=== PATIENT | male | born 1945 | race Caucasian/White ===

== ENCOUNTER → 2017-09-03 10:14 | Outpatient (CLI) | payer MEDICARE, SELFPAY ==
[2017-09-03 11:29] LABS: AST(SGOT) 9 U/L (15-37); Alanine Aminotransfer ALT/SGPT 25 U/L (16-61); Albumin, Serum 3.6 g/dL (3.2-5.0); Alkaline Phosphatase 68 U/L (45-117); Bilirubin, Direct 0.08 mg/dL (0.00-0.30); Cholesterol 155 mg/dL (200); Globulin 3.6 g/dL (2.2-4.2); High Density Lipoprotein 37 mg/dL; Protein, Total 7.2 g/dL (6.4-8.2); Triglycerides 200 mg/dL; Very Low Density Lipoprotein 40 mg/dL (5-40)
== END ==
PROVIDERS: Family Provider Family Medicine; PCP Family Medicine; Visit Provider Nurse Practitioner Family
DX: E78.5 Hyperlipidemia, unspecified (principal); Z79.899 Other long term (current) drug therapy
CPT/HCPCS: 36415; 80061; 80076

== ENCOUNTER → 2017-10-16 10:30 | Outpatient (CLI) | payer MEDICARE, SELFPAY ==
--- NOTE | 2017-10-16 10:31 | STE_ITS ---
Reason For Study: Chest Pain; CAD Stress Results Protocol: Tk Protocol Maximum Predicted HR: 150 bpm Target HR: 128 bpm% Max imum Predicted HR: 85 % DurationHeart Rate Stage (mm:ss) (bpm) BPCom ment Baseline 54 142/84 No Chest Pain Tk Protocol Stage I 3:00 90 152/78No Chest Pain Tk Protocol Stage II 3:00 10 9 172/74No Chest Pain Tk Protocol Stage III 2:00 12 7 180/70No Chest Pain Recovery 78 148/76 No Chest Pain Stress Duration: 8:00 mm:ss Maximum Stress HR: 127 bpmM ETS: 10 Baseline Echocardiogram Findings The estimated ejection fraction is 65 %. Stress Echo Wall motion Data Resting WMIntermediate WMStress WM Resting Wall Motion Wall Motion Stress No regional wall motion No regional wall motion abnormalities noted. abnormalities noted. EKG Data The baseline ECG demonstrates normal sinus rhythm with at rate of _ beats per minute. The patient exercised according to the regular Tk protocol for a total duration of 8:00. The maximum heart rate attained was 129 beats per minute. This was 86% of maximum predicted heart rate. The patient exercised into stage 3 of the Tk protocol. During stress, there were no ST or T wave changes noted to suggest ischemia. No clinical angina was noted. Interpretation Summary The estimated ejection fraction is 65 %. Normal, adequate, treadmill echocardiogram. Negative for ischemia by EKG and echocardiographic criteria. No anginal symptoms noted. Rare PVCs noted. Appropriate blood pressure response to exercise. Average exercise capacity for age. Final LVEF is 75%. Patient tolerated procedure well. No complications. Ordering Physician: Kendrick Villanueva Referring Physician: Kendrick Villanueva MD Performed By: Tiffanie Parada, ANNACS, RVT
== END ==
PROVIDERS: Family Provider Family Medicine; PCP Family Medicine; Visit Provider Internal Medicine Cardiovascular Disease
DX: I25.10 Atherosclerotic heart disease of native coronary artery without angina pectoris (principal); E78.5 Hyperlipidemia, unspecified; I25.2 Old myocardial infarction; Z95.5 Presence of coronary angioplasty implant and graft
CPT/HCPCS: 93017; 93350

== ENCOUNTER → 2018-02-11 11:21 | Outpatient (CLI) | payer MEDICARE, SELFPAY ==
--- NOTE | 2018-02-11 11:32 | RAD_ITS ---
STUDY: XR SPINE ENTIRE THORACIC T LUMBAR (W SKULL, CERVICAL AND SACRAL SPINE IF PERFORMED) REASON FOR EXAM: Male, 72 years old. for spine manipulation, arthritis. TECHNIQUE: Radiological exam, spine, entire thoracic and lumbar, including skull, cervical and sacral spine if performed (eg, scoliosis evaluation); 2 or 3 views. COMPARISON: None. FINDINGS: There is minimal dextroscoliosis of the lumbar spine. There is an increase in the normal thoracic kyphosis. There is multilevel endplate spondylosis of the thoracic vertebrae. There is multilevel disc space narrowing of the thoracic spine. Normal lordosis of the lumbar spine. There is multilevel endplate spondylosis of the lumbar vertebrae. There is multilevel disc space narrowing of the lumbar spine. There is an aortic atherosclerosis. RAD/Scoliosis 2 or 3 views IMPRESSION: Minimal scoliosis. Multilevel degenerative changes. Electronically Signed: Christen Joseph MD at 8:59 EDT Tel , Service support ,
--- NOTE | 2018-02-11 11:32 | RAD_ITS ---
STUDY: X-RAY - CERVICAL SPINE REASON FOR EXAM: Male, 72 years old. for spine manipulation, arthritis TECHNIQUE: 3 view(s) of the cervical spine were obtained. COMPARISON: None FINDINGS: Normal cervical lordosis. There is multi-level endplate spondylosis. There is multi-level degenerative disc disease with multilevel disc space narrowing. There is minimal anterolisthesis at C4/C5 and C5/C6 and C6/C7 The soft tissue structures are unremarkable. RAD/Cerv Spine 2 or 3 Views IMPRESSION: Degenerative changes of the spine. Electronically Signed: Christen Joseph MD at 8:47 EDT Tel , Service support ,
--- NOTE | 2018-02-11 11:32 | RAD_ITS ---
STUDY: X-RAY - PELVIS REASON FOR EXAM: Male, 72 years old. Arthritis TECHNIQUE: One view of the pelvis was obtained. COMPARISON: None. FINDINGS: There is a non-specific bowel gas pattern. There are atherosclerotic vascular calcifications of the pelvic arteries. There are degenerative changes of the visualized lumbar spine. There is narrowing with cortical sclerosis and osteophyte formation of the sacroiliac joint consistent with degenerative osteoarthritic changes. Normal visualized bilateral superior and inferior pubic rami. Normal pubic symphysis. Normal ischial tuberosities. Normal visualized right femoral head. Normal right acetabulum. There is mild articular joint space narrowing of the right hip. Normal visualized left femoral head. Normal left acetabulum. There is mild to moderate articular joint space narrowing of the left hip. RAD/Pelvis 1 or 2 Views IMPRESSION: Moderate bilateral hip arthropathies. Degenerative changes of the sacroiliac and lower lumbar spine. Electronically Signed: Dulce Maria Santiago MD at 7:40 EDT , Service support ,
== END ==
PROVIDERS: Family Provider Family Medicine; PCP Preventive Medicine Occupational Medicine
DX: M99.01 Segmental and somatic dysfunction of cervical region (principal); M99.02 Segmental and somatic dysfunction of thoracic region; M99.03 Segmental and somatic dysfunction of lumbar region; M51.36 Other intervertebral disc degeneration, lumbar region; M54.2 Cervicalgia
CPT/HCPCS: 72040; 72082; 72170

== ENCOUNTER → 2019-02-19 10:37 | Outpatient (CLI) | payer MEDICARE, SELFPAY ==
[2018-10-15 10:58] VITALS: BMI 31.2
--- NOTE | 2019-02-19 10:52 | RAD_ITS ---
STUDY: X-RAY - CERVICAL SPINE REASON FOR EXAM: Male, 73 years old. Neck and back pain. TECHNIQUE: 6 view(s) of the cervical spine were obtained. COMPARISON: February 11, 2018. FINDINGS: There are degenerative changes of the anterior atlantoaxial articulation. Normal odontoid process. There is exaggeration of the cervical lordosis. There is multi-level endplate spondylosis. There is multi-level degenerative disc disease with multilevel disc space narrowing. The intervertebral neural foramina are incompletely visualized on the oblique images. There is no evidence of acute fracture or loss of vertebral axial height.. The soft tissue structures are unremarkable. RAD/Cerv Spine 4 or 5 Views IMPRESSION: Stable degenerative changes cervical spine. Electronically Signed: Dank Estrada DO at 19:40 EDT Tel [phone], Service support ,
--- NOTE | 2019-02-19 10:52 | RAD_ITS ---
STUDY: X-RAY - THORACIC SPINE REASON FOR EXAM: Male, 73 years old. Neck and back pain. TECHNIQUE: 4 view(s) of the thoracic spine were obtained. COMPARISON: Scoliosis study, February 11, 2018. FINDINGS: Normal kyphosis of the thoracic spine. There is no substantial scoliosis. There is demineralization of the thoracic spine with endplate spondylosis. There is multilevel disc space narrowing of the thoracic spine. There is no evidence of acute fracture or loss of vertebral axial height. The soft tissue structures are unremarkable. RAD/Thoracic Spine 3 Views IMPRESSION: Degenerative changes of cervical spine without acute abnormality or major interval change. Electronically Signed: Dank Estrada DO at 19:45 EDT Tel [phone], Service support ,
--- NOTE | 2019-02-19 10:53 | RAD_ITS ---
STUDY: X-RAY - LUMBAR SPINE REASON FOR EXAM: Male, 73 years old. Neck and back pain. TECHNIQUE: 5 view(s) of the lumbar spine were obtained. COMPARISON: Scoliosis study, February 11, 2018. FINDINGS: There is mild flattening of the lumbar lordosis. There is no substantial scoliosis. There is a normal alignment of the vertebrae. There is multilevel endplate spondylosis of the lumbar vertebrae. Normal disc space heights. There is no evidence of acute fracture or loss of vertebral axial height. There is no demonstrated spondylolysis of the pars interarticulares. The soft tissue structures are unremarkable. RAD/L/S Spine Min 4 Views IMPRESSION: Degenerative changes of the lumbar spine. The findings are stable when compared to the previous examination. Electronically Signed: Dank Estrada DO at 19:46 EDT Tel [phone], Service support ,
--- NOTE | 2019-02-19 10:53 | RAD_ITS ---
STUDY: X-RAY - PELVIS REASON FOR EXAM: Male, 73 years old. Neck Back pain TECHNIQUE: One view of the pelvis was obtained. COMPARISON: None. FINDINGS: The bones of the pelvis are intact and located. Soft tissues unremarkable with expected extrusion of stool and gas in the lower abdomen. There are mild degenerative changes in the hips, age-appropriate. RAD/Pelvis 1 or 2 Views IMPRESSION: Normal x-ray examination of the pelvis. Electronically Signed: Ricci Rajan, at 17:07 EDT Tel , Service support ,
== END ==
PROVIDERS: Family Provider Preventive Medicine Occupational Medicine; PCP Preventive Medicine Occupational Medicine; Referring Provider Chiropractor; Visit Provider Chiropractor
DX: M54.2 Cervicalgia (principal); M54.5 Low back pain; M25.559 Pain in unspecified hip
CPT/HCPCS: 72050; 72072; 72110; 72170

== ENCOUNTER → 2019-07-30 10:55 | Outpatient (CLI) | payer MEDICARE, SELFPAY ==
[2019-03-22 11:13] VITALS: BMI 31.1
[2019-07-30 12:17] LABS: AST(SGOT) 11 U/L (15-37); Alanine Aminotransfer ALT/SGPT 30 U/L (16-61); Albumin, Serum 3.6 g/dL (3.2-5.0); Alkaline Phosphatase 84 U/L (45-117); Bilirubin, Direct 0.14 mg/dL (0.00-0.30); Cholesterol 170 mg/dL (200); Globulin 3.8 g/dL (2.2-4.2); High Density Lipoprotein 37 mg/dL; Protein, Total 7.4 g/dL (6.4-8.2); Triglycerides 268 mg/dL; Very Low Density Lipoprotein 54 mg/dL (5-40)
== END ==
PROVIDERS: PCP Preventive Medicine Occupational Medicine; Referring Provider Physician Assistant Medical; Visit Provider Physician Assistant Medical
DX: E78.5 Hyperlipidemia, unspecified (principal); I25.10 Atherosclerotic heart disease of native coronary artery without angina pectoris; Z12.5 Encounter for screening for malignant neoplasm of prostate
CPT/HCPCS: 36415; 80061; 80076; 84153; G0103

== ENCOUNTER → 2020-06-16 12:00 | Outpatient (CLI) | payer MEDICARE, SELFPAY ==
[2019-08-05 13:03] VITALS: BMI 32.7
--- NOTE | 2020-06-16 12:06 | RAD_ITS ---
STUDY: X-RAY - THORACIC SPINE REASON FOR EXAM: Male, 74 years old. Mid back pain TECHNIQUE: 3 view(s) of the thoracic spine were obtained. COMPARISON: None. FINDINGS: Normal kyphosis of the thoracic spine. There is no substantial scoliosis. There is multilevel endplate spondylosis of the thoracic vertebrae. There is multilevel disc space narrowing of the thoracic spine. Multiple anterior bridging spurs suggesting DISH The soft tissue structures are unremarkable. RAD/Thoracic Spine 2 Views IMPRESSION: Multilevel degenerative changes, no acute findings Electronically Signed: Buster Strong MD at 17:48 EST , Service support ,
--- NOTE | 2020-06-16 12:06 | RAD_ITS ---
STUDY: X-RAY - CERVICAL SPINE REASON FOR EXAM: Male, 74 years old. Neck pain and headache TECHNIQUE: 2 view(s) of the cervical spine were obtained. COMPARISON: None FINDINGS: Normal anterior atlantoaxial articulation. Normal odontoid process. Normal cervical lordosis. There is multi-level endplate spondylosis. There is multi-level degenerative disc disease with multilevel disc space narrowing. The soft tissue structures are unremarkable. RAD/Cerv Spine 2 or 3 Views IMPRESSION: Multilevel degenerative changes, no acute findings Electronically Signed: Buster Strong MD at 17:47 EST , Service support ,
--- NOTE | 2020-06-16 12:06 | RAD_ITS ---
STUDY: X-RAY - LUMBAR SPINE REASON FOR EXAM: Male, 74 years old. Low back pain and stiffness TECHNIQUE: 2 view(s) of the lumbar spine were obtained. COMPARISON: None FINDINGS: There is straightening of the normal lumbar lordosis. There is no substantial scoliosis. There is a normal alignment of the vertebrae. There is multilevel endplate spondylosis of the lumbar vertebrae. There is multi-level degenerative disc disease with multi-level disc space narrowing. There is no demonstrated fracture. There is atherosclerotic calcification of the abdominal aorta without a demonstrated aneurysm. RAD/Lumbar Spine 2 or 3 Views IMPRESSION: Degenerative changes of the spine, as detailed above. Electronically Signed: Buster Strong MD at 17:47 EST , Service support ,
== END ==
PROVIDERS: PCP Preventive Medicine Occupational Medicine
DX: M54.2 Cervicalgia (principal); M54.9 Dorsalgia, unspecified; M99.02 Segmental and somatic dysfunction of thoracic region; M99.05 Segmental and somatic dysfunction of pelvic region; M51.36 Other intervertebral disc degeneration, lumbar region
CPT/HCPCS: 72040; 72070; 72100

== ENCOUNTER → 2021-03-21 13:03 | Outpatient (CLI) | payer MEDICARE, SELFPAY ==
--- NOTE | 2021-03-21 13:07 | ECHOD_ITS ---
Reason For Study: AORTIC VALVE INS Procedure This was a 2D Doppler, Color Flow transthoracic echocardiogram. The exam was of adequate technical quality. Exam performed in department. Left Ventricle Normal LV size. Left ventricular systolic function is normal. The estimated ejection fraction is 55 %. No evidence for diastolic dysfunction. No regional wall motion abnormalities noted. Right Ventricle Normal RV size. Normal systolic function. Atria The left atrium is mildly enlarged. Normal right atrium. No doppler evidence for ASD. Mitral Valve There is no mitral annular calcification. Normal mitral valve. Trivial mitral valve insufficiency. Tricuspid Valve Normal tricuspid valve. Trivial tricuspid valve insufficiency. Unable to estimate RV systolic pressure due to insufficient tricuspid regurgitant envelope. Aortic Valve Trisinus/trileaflet aortic valve. Normal aortic valve. Trivial aortic valve insufficiency. Pulmonic Valve The pulmonic valve is not well visualized. Trivial pulmonic valve insufficiency. Great Vessels Normal sized aortic root. Pericardium/Pleural No pericardial effusion. Epicardial fat. MMode/2D Measurements & Calculations LVIDd: 4.6 cm IVSd: 0.83 cm Ao root diam: 4.0 cm LVIDs: 2.9 cm LVPWd: 0.95 cm RVDd: 4.2 cm FS: 36.9 % LAV(MOD-bp): 70.7 ml LA A4 area: 21.8 cm2 LA dimension(2D): 4.3 cm LAV(MOD-bp) Indexed: 32.3 ml/m2 LAV(MOD-sp2): 73.4 ml LAV(MOD-sp4): 66.9 ml RA A4 area: 19.3 cm2 Doppler Measurements & Calculations MV E max homero: 44.0 cm/sec Lat Peak E' Homero: 4.6 cm/sec Med Peak E' Homero: 3.7 cm/sec MV A max homero: 71.2 cm/sec E/E' lat: 9.5 E/E' med: 12.0 MV E/A: 0.62 Ao V2 max: 120.5 cm/sec AI max homero: 379.5 cm/sec LV V1 max: 82.4 cm/sec Ao max P.8 mmHg AI max P.9 mmHg LV V1 max P.7 mmHg AI dec slope: 187.4 cm/sec2 AI P1/2t: 593.1 msec PA V2 max: 107.7 cm/sec PI end-d homero: 109.0 cm/sec ECHO/Echo Complete Interpretation Summary Left ventricular systolic function is normal. The estimated ejection fraction is 55 %. The left atrium is mildly enlarged. Trivial mitral valve insufficiency. Trivial tricuspid valve insufficiency. Trivial aortic valve insufficiency. Trivial pulmonic valve insufficiency. Epicardial fat. Unable to estimate RV systolic pressure due to insufficient tricuspid regurgita nt envelope. No evidence for diastolic dysfunction. Ordering Physician: Yair Segal Referring Physician: ZOIE CANO Performed By: Tiffanie Parada, RDCS, RVT
== END ==
PROVIDERS: PCP Preventive Medicine Occupational Medicine; Referring Provider Internal Medicine Cardiovascular Disease; Visit Provider Internal Medicine Cardiovascular Disease
DX: I25.10 Atherosclerotic heart disease of native coronary artery without angina pectoris (principal); I35.1 Nonrheumatic aortic (valve) insufficiency; E78.5 Hyperlipidemia, unspecified; Z95.5 Presence of coronary angioplasty implant and graft
CPT/HCPCS: 93306

== ENCOUNTER 2021-06-15 16:19 | Outpatient (CLI) | payer MEDICARE, SELFPAY ==
--- NOTE | 2021-06-15 16:41 | RAD_ITS ---
HISTORY: CERVICAL/THPORACIC/LUMBAR SUBLUXATION EXAMINATION/TECHNIQUE: XR Spine Lumbar 2 or 3 Views: Two-view lumbar spine.. COMPARISON: February 19, 2019 FINDINGS: VERTEBRAE: 5 [id number] lumbar type vertebra. No fracture or acute compression deformity. Thoracolumbar dextrocurvature Preservation of the normal lumbar lordosis. Facet arthropathy, severe at L3-L4 and L4-L5 with grade 1 retrolisthesis L3 on L4 and grade 1 anterolisthesis L4 on L5. DISCS: Multilevel mid to lower lumbar disc height loss with anterior vertebral bridging osteophytes INCLUDED ABDOMEN: Included bowel gas pattern is non-obstructive. Aortic and iliac atherosclerosis. RAD/Lumbar Spine 2 or 3 Views IMPRESSION: No evidence of lumbar spinal fracture or facet dislocation Severe lower lumbar facet arthropathy with degenerative grade 1 L3-L4 and L4-5 listhesis Atherosclerosis at 0415 Reported and signed by: Marcelino Rojo MD Electronically Signed: Marcelino Rojo MD at 4:13 EST Tel , Service support ,
--- NOTE | 2021-06-15 16:50 | RAD_ITS ---
HISTORY: CERVICAL/THORACIC/LUMBAR SUBLUXATION EXAMINATION/TECHNIQUE: XR Spine Cervical 2 or 3 Views: 3 view cervical spine COMPARISON: June 16, 2020 FINDINGS: VERTEBRAE: Preserved vertebral body height. No fracture. Head tilts rightward. Mild degenerative grade 1 anterolisthesis C4 on C5, C5 and C6, C6 and C7 Preservation of the normal cervical lordosis. Diffuse cervical facet arthropathy, right greater than left with cervical levocurvature. No facet dislocation. DISCS: Mild disc height loss at C6-C7. NECK SOFT TISSUES: No prevertebral soft tissue widening. Aortic atherosclerosis. Right greater than left mid carotid at the sclerosis. LUNG APICES: Clear. RAD/Cerv Spine 2 or 3 Views IMPRESSION: No evidence of acute fracture Spondylosis with right greater than left facet arthropathy and mild multilevel degenerative grade 1 listhesis. at 0409 Reported and signed by: Marcelino Rojo MD Electronically Signed: Marcelino Rojo MD at 4:08 EST Tel , Service support ,
== END 2021-06-15 23:59 | disposition short-term general hospital (02) ==
PROVIDERS: PCP Preventive Medicine Occupational Medicine; Referring Provider Chiropractor; Visit Provider Chiropractor
DX: S13.100A Subluxation of unspecified cervical vertebrae, initial encounter (principal); M46.96 Unspecified inflammatory spondylopathy, lumbar region; S23.100 Subluxation of unspecified thoracic vertebra; S33.100A Subluxation of unspecified lumbar vertebra, initial encounter; X58.XXXA Exposure to other specified factors, initial encounter; M25.78 Osteophyte, vertebrae
CPT/HCPCS: 72040; 72100

== ENCOUNTER → 2022-03-12 | Outpatient (CLI) | payer MEDICARE, SELFPAY ==
[2022-03-12 16:18] LABS: Absolute Lymphocyte Count 1.07 X10^3/uL (0.83-4.51); Absolute Neutrophil Count 4.1 X10^3/uL (2.0-7.7); Basophil# 0.05 X10^3/uL; Basophil% 0.9 % (0-1); Eosinophil# 0.04 X10^3/uL; Eosinophils% 0.7 % (0-5); Hematocrit 47.9 % (40-54); Hemoglobin 15.8 g/dL (13.0-16.5); Lymphocyte # 1.07 X10^3/ul (0.83-4.51); Lymphocyte % 18.2 % (19-41); Mean Corpuscular Volume 94.1 fL (80-94); Mean Platelet Vol. 10.4 fl (6.2-12.0); Monocyte# 0.61 X10^3/uL; Monocyte% 10.4 % (0-10); NRBC Flagged by Analyzer 0 % (0-5); Neutrophil # 4.07 X10^3/uL (2.7-7.7); Neutrophil % 69.3 % (47-70); Platelet Count 173 K/mm3 (150-450); RBC Distribution Width CV 14.5 % (11.6-14.6); RBC Distribution Width SD 50.1 fl (35.1-43.9); Red Blood Count 5.09 M/mm3 (4.6-6.2); White Blood Count 5.9 K/mm3 (4.4-11.0)
[2022-03-12 16:29] LABS: International Normalized Ratio 1.1; Partial Thromboplast Time 31.4 Seconds (24.1-36.2); Prothrombin Time (Protime)PT. 13.4 SECONDS (11.7-14.9)
[2022-03-12 16:36] LABS: Anion Gap 4 (5-15); BUN 31 mg/dL (7-18); Calcium,Total 9.8 mg/dL (8.5-10.1); Chloride 108 mmol/L (98-107); Creatinine, Serum 1.35 mg/dL (0.70-1.30); EST Glomerular Filtration Rate 55 mL/min (>60); Est Glom Filt Rate - Afr Amer 66 mL/min (>60); Glucose 104 mg/dL (74-106); Sodium Level 142 mmol/L (136-145)
[2022-03-12 19:27] LABS: AST(SGOT) 8 U/L (15-37); Alanine Aminotransfer ALT/SGPT 24 U/L (16-61); Albumin, Serum 3.7 g/dL (3.2-5.0); Alkaline Phosphatase 72 U/L (45-117); Bilirubin, Direct 0.09 mg/dL (0.00-0.30); Globulin 3.5 g/dL (2.2-4.2); Magnesium 2.2 mg/dL (1.6-2.6); Protein, Total 7.2 g/dL (6.4-8.2)
== END | disposition home or self-care (01) ==
LOC: LAB 15:42
PROVIDERS: Anesthesiology; PCP Preventive Medicine Occupational Medicine; Referring Provider Specialist; Visit Provider Specialist
DX: Z01.818 Encounter for other preprocedural examination (principal)
CPT/HCPCS: 36415; 80048; 80076; 83735; 85025; 85610; 85730; 87081

== ENCOUNTER 2022-03-20 06:58 | Observation (INO) | payer MEDICARE, SELFPAY ==
--- NOTE | 2022-03-08 17:05 | PCM.HP.BLA ---
History and Physical History and Physical [facility] Patient Name: Fransisco Schneider : 1945 From:? JAYRO VAZQUEZ PA-C? DATE OF SURGERY:? 03/20/2022 SCHEDULED PROCEDURE:? left total hip arthroplasty HISTORY OF PRESENT ILLNESS: Preoperative history and physical exam was performed on March 08, 2022.? This is a 76-year-old male who has been having ongoing pain in bilateral hips are over 10 years.? The left hip has been worse than the right.? His pain as being constant and aching.? Pain is increased with going up and down stairs, driving, sitting, walking.? He has difficulty with activities of daily living including getting dressed, housework, shopping, leisure activities such as cycling and golf.? He has tripped/stumbled secondary to the pain.? Denies previous surgery on the hip.? He has attempted rest, ice, heat, elevation with minimal relief.? He does have start up pain.? Pain is located in the left groin and lateral hip.? Pain occasionally wakes him at night.? He has tried [id number] ibuprofen, meloxicam, Excedrin, Tylenol with minimal relief.? He has had previous physical therapy in 2019 in 2020 with minimal relief.? He has been through health care / medical job titles.? Patient has undergone 2 previous left hip intra-articular injections on April 12, 2021 and October 19, 2021.? He states the last injection only gave him 1 month relief.? The pain has been progressively been getting worse.? He uses Excedrin Extra Strength for pain twice daily.? He currently denies any recent fevers, chills, recent infections.? We are obtaining surgical clearance from the truck dispatcher Dr. Segal and primary care physician Dr. León.? Patient does have previous history of heart stent and catheterization in the past.? He has had previous heart attack.? Previous brain bleeding in which she has seen a neurologist.? We are obtaining surgical clearance from the neurologist Dr. Howard Dougherty.? Patient has history of cerebral amyloid angiopathy.? He has had previous MRI on the brain which did show micro-hemorrhages secondary to hypertension and amyloid angiopathy.? He has also had previous CT scan of his head.? Patient also has previous history of cancer involving non-Hodgkin's lymphoma.? He states he gets numbness and tingling on the left side at times.? He has history gastroesophageal reflux.? After failing conservative measures and discussing all treatment options was Dr. Almas Larson, the patient does wish to proceed with a left total hip arthroplasty. REVIEW OF SYSTEMS: ROS: Const: Denies change in appetite, fever and weight change. CV: Denies chest pain, heart murmur and irregular heartbeat. Resp: Reports cough and pneumonia, but denies shortness of breath, tuberculosis and wheezing. GI: Reports constipation, diarrhea, dysphagia and heartburn, but denies nausea, rectal itching, bloody stools and vomiting. : Denies incontinence. Musculo: Reports gait disturbance, leg swelling and pain, but denies trouble walking and weakness. Skin: Reports history of shingles, but denies Raynaud's and tattoo. Neuro: Reports ambulatory dysfunction, numbness/tingling and tremor but denies dizziness. Psych: Denies anxiety, insomnia and stress. Henry/Lymph: Denies anemia, bleeding/bruising tendency and past transfusion. Reviewed and updated. PAST MEDICAL HISTORY: Advance Care Plan: Other Directive, LIVING WILL Effective Date: 03/16/2021 Other Directive, POA Effective Date: 03/16/2021 PMH: Medical Problems: Acid Reflux, Arthritis, Coronary Artery Disease (CAD), Heart Attack, Hypercholesterolemia, Stroke Cancer - (1995) NON-HODGKIN'S LYMPHOMA Covid- 19 - (03/2020) High Blood Pressure brain bleed - (07/2021) LT Side Went Numb - many times Cerebral Amyloid Angiopathy, Gastroesophageal Reflux Disease Accidents: Other - (2006) Concussion ( and 1963) Low Back Injury - (1976) Surgical Hx: Heart Stent - (2010) Carpal Tunnel Release LT - (2014) Left Hip Fluoroscopic Guided Intraarticular Injection - (04/17/2021) [facility]W @ [facility] Left Hip Fluoroscopic Guided Intraarticular Injection - (10/19/2021) SAW @ [facility] RT Groin Cancer Removal - (1995) LT Grouin Surgery - (2002) Anesthesia Complications: None Assistive Devices: Glasses Reviewed and updated. SOCIAL HISTORY: SH: Marital: .Occupation: Retired.Work Status: Retired.Hand Dominance: Right-handed. Personal Habits:? Cigarette Use: Never Smoked Cigarettes.Smokeless Tobacco: Never Used Smokeless Tobacco.E-Cigarette Use: Never used.Alcohol: Denies use.Drug Use: Denies Use.Enjoy Exercising: Exercises 1-3 X/Week. Reviewed and updated. VITALS: Ht: 69.8 Wt: 219lb Wt k.338 BMI: 31.6 BP: 136/82 Pulse: 84 Resp: 12 T: 97.7 T: 36.5C Pain Level: 8 O2SatR: 97 ALLERGIES: Sulfa Lipitor - Pain In Joints Tagamet - Stomach Cramps Zetia - Numbness In Fingers And Hands Fenofibrate - Extreme Pain In Joints And Hands Hydralazine? MEDICATIONS: Lansoprazole 30 mg 1 by mouth every day, Mometasone Furoate 0.1 % apply ointment topically once daily for 7 days, Topamax 25 mg 2 daily, Aspercreme Lidocaine Max Strength 4 % apply prn, Tums 500 mg 1po qday, Excedrin Extra Strength 250-250-65 mg as needed, Orthomune? 1po qday, Relief Factor? 1po qday, Sagar Natural Pain Relieving? daily, Valsartan? 1po qday, Tylenol PM Extra Strength? 1po qday prn PRE-OP EXAM:? General appearance:NORMAL? ? ? Other: Eyes: Conjunctivae and lids: NORMAL? Pupils: ERR Ears, Nose, Mouth, and Throat: NORMAL? Other: Inspection of lips, teeth and gums: NORMAL? ?Other: Neck: Examination of neck: no masses noted. Respiratory: Assessment of respiratory effort: NORMAL? ?Other: ?Auscultation of lungs: clear to auscultation no wheezes, rhonchi or rales. Cardiovascular:? Auscultation of heart: regular rate and rhythm, no murmurs, gallops or rubs. PHYSICAL EXAMINATION: Patient does walk with an antalgic gait.? Patient has tenderness to palpation over the lateral left hip.? Range of motion: Flexion 70, internal rotation 20, external rotation 5 with increased pain.? He has 3/5 hip flexion strength.? Leg lengths appeared equal.? Negative straight leg raise bilaterally. IMAGING STUDIES: Previous x-rays of the left hip reveal joint space narrowing, subchondral sclerosis, osteophyte formation consistent with stage IV severe [id number] osteoarthritis.? There is been further progression of femoral head flattening compared to previous x-rays. IMPRESSION: 1.? Severe left hip osteoarthritis 2.? Hypertension 3.? Previous history of heart attack and stent placement 4.? Previous transient ischemia attack 5.? Cerebral amyloid angiopathy 6.? Gastroesophageal reflux disease 7.? Hypercholesterolemia 8.? Previous history of non-Hodgkin's lymphoma PLAN: Dr. Almas Larson did discuss and review with the patient all treatment options including surgical versus nonsurgical options.? Patient does wish to proceed with the above-stated procedure.? Potential risks, benefits, and complications of the procedure were discussed in detail including but not limited to , infection, nerve and blood vessel damage, persistent pain, numbness, tingling, paresthesias, blood clot, pulmonary embolism, and requirement for possible further surgery.? The patient expressed full understanding and has no further questions for the doctor.? Patient does agree to proceed with the above-stated procedure and has signed the surgery consent form. We discussed the current risks associated with COVID 19.? This does include the risk of exposure while in the hospital.? Patient was reassured local hospitals have low infection rates and are taking all necessary precautions to avoid exposure to patients.? In addition, we discussed strategies that can be used to help limit exposure including those that limit the patient's time in the hospital.? Also using strategies to limit the patient's need for continued inpatient services after being discharged from the hospital.? Patient was notified that we will need to comply with any screening or testing the hospital wishes to perform or that surgery may be delayed for any positive results. This dictation was created using voice recognition software. Phonetic and/or grammatical errors may exist. ___? I have re-examined the patient.? There are no clinical changes since date of exam. ___? See progress notes for changes. ___? Dictated on admission Date: ? ? ?Time: Signature:
--- NOTE | 2022-03-18 15:35 | CASEMGMT ---
YAKELIN LUJAN Assessment: PC to pt for initial transition planning/care coordination assessment. YAKELIN LUJAN introduced self and role at [facility], pt voices understanding and consents to assessment. Care providers, pharmacy, and demographics verified/updated. Admitting Dx: Lt Direct Anterior Total Hip. PCP: Mathew Mishra. Specialists: Pt said he has 10-15 specialists and will bring a list to his surgery. Preferred Pharmacy: [facility]. Insurance: [employer] [facility]. Prescription Benefit: yes. LNOK: Jewels Schneider, . Living Arrangements: Pt lives , Jewels, in a two story home. He is staying on the first floor and has access to needed amenities on the floor. Pt has three steps to get into the home with a railing in place. Pt reports being I in ADLs. Transportation: Pt typically drives self. However, Pt's is able to transport to medical appointments after surgery. DME/HHC/SNF: Pt typically uses a cane but has a walker for after surgery. Pt recently obtained a shower chair and raised toilet. Pt denied any HHC or SNF stays. Pt has a outpt therapy scheduled at [facility] on 03/25. Pt states no concerns with going home at time of dc. Pt states no further concerns/needs. CM to follow. Advised pt to ask CM if any further question/concerns/needs arise, voices understanding. Pt Goal: Home with outpt therapy. Plan: Home with outpt therapy.
[2022-03-20] VITALS (14 sets, daily range): BP systolic 114–157; BP diastolic 67–98; PULSE 50–95; RESP 14–18; TEMP 36.3–37; O2SAT 4–99; BMI 31.3
[2022-03-20] MEDS: Acetaminophen 500 MG Tablet 1000 MG PO ×3 (06:58→22:06)
[2022-03-20] MEDS: Magnesium 1 GM over 15 mins IV (06:59)
[2022-03-20] MEDS: Lactated Ringers 1,000 ML 999 ML IV ×2 (06:59→11:21)
--- NOTE | 2022-03-20 07:06 | PCM.OPRPT ---
Report of Operation Date of Procedure: 03/20/22 Pre-Operative Diagnosis: Left hip primary osteoarthritis Post-Operative Diagnosis: Left hip primary osteoarthritis Surgery/Procedure Performed:: Left minimally invasive direct anterior hip replacement Description of Surgical Findings:: Stable hip with equal leg lengths Surgeon: Almas Larson hand cigar making supervisor: Helena Castillo Type of Anesthesia: Spinal Anesthesiologist: Asif Hernandez Special Medications: 2 g Ancef, 2 g TXA lavage and wound for 1 minute prior to closure, 10 mg Decadron, joint cocktail (5 mg Duramorph, 30 mL of 0.5% Ropivicaine, 1000 units of epinephrine, 30 mg of Toradol) Specimen's removed: Bony cuts Estimated Blood Loss (mL): 200 Fluids Replaced: 1200 mL crystalloid Description of Procedure: Components used: 1. Insignia Edwina femoral stem size 6 high offset 2. Edwina trident 2 acetabular shell size 54 mm 3. Edwina X3 polyethylene E 4. Edwina Biolox delta 36mm, 2.5mm femoral head Brief history operative indications: 76 yo M who failed conservative measures for their hip osteoarthritis. X-rays were consistent with osteoarthritis including joint space narrowing, osteophyte formation and subchondral cysts. Total hip replacement was discussed with the patient with risks and benefits including but not limited to blood loss, DVTs, PEs, neurovascular damage, dislocation, general risks of anesthesia including loss of life. Patient demonstrated an understanding medical clearance is obtained the patient was consented for surgery. Procedure: On the date of procedure the patient's L hip was marked in the preoperative area. Patient was then taken back to the operating room where anesthesia assumed control of the C-spine and airway and administered anesthetic. Patient was transferred to the operating table and placed in the supine position. The hips were placed at the break of the bed and a sacral bump was placed. L The lower extremity was then prepped out in a sterile fashion using chlorhexidine while the surgeon scrubbed. The PA was vital in the positioning of the patient. Upon reentering the room the left lower extremity was draped in the standard orthopedic fashion and the incision was marked. A timeout was called and everyone agreed upon the side, the site, the procedure be performed, antibody given, and patient's identity. At this time incision was made through skin, subcutaneous tissue, and fat down to fascia. The fascia was then incised and the TFL was retracted laterally. A retractor was placed on the lateral border of the femoral neck. Attention was directed to the inferior portion of the approach and all crossing vessels were identified and appropriately coagulated. A retractor was then placed on the medial portion of the femoral neck. The anterior capsule was then cleared of all soft tissue and then H shaped capsulotomy was made. The retractors were then placed inside the capsule. The femoral neck was identified and a cleanup cut was made. At this time a power corkscrew was used to remove the femoral head. Attention was then turned toward the acetabulum where the soft tissues were appropriately retracted and the acetabulum was sequentially reamed to 54 mm. A 54 mm cup was then selected and impacted into place. Acetabular liner was impacted into place and locking mechanism was verified. The position of the acetabular cup was then verified under live fluoroscopy. Attention was then turned to the femur. Soft tissue releases on the medial and lateral femoral neck were appropriately done, the leg was externally rotated and lateralized. A Lopez retractor was placed medially and proximally to the greater trochanter this allowed appropriate visualization and exposure of the femoral canal. Rongeour was then used to remove excess lateral bone. A canal finder and entry broach were used to open the proximal canal. Once we verified we were down the femoral canal we subsequently broached up to a size 6 femur. The appropriate neck was placed in the previously selected head was trialed with a 2.5 mm neck. Traction was pulled and the hip was reduced with internal rotation. Once it was appropriately reduced and stability was checked. There was minimal shuck, equal leg lengths and appropriate stability with hyperextension and external rotation as well as with 90? flexion and internal rotation. Fluoroscopy was then also used to verify the position of the components and leg lengths using the contralateral side for comparison. The trial components were then dislocated the proximal femur was again exposed and the components were removed from the wound. The final components were verified and opened. The wound was copiously irrigated out with normal saline. The acetabulum was checked for any residual debris. The final components were placed and impacted. Traction and internal rotation were again used to reduce the hip. After adequate reduction the hip remained stable with appropriate leg lengths. The final components were once again checked with live fluoroscopy and were found to be satisfactory. The wound was then copiously irrigated with normal saline once more, and hemostasis was obtained. Closure was then done using #1 Vicryl runner to close the fascia. A 2-0 vicryl interuppted sutures were used to close the subcutaneous skin. A 3-0 Monocryl and Steri-Strips were used for final skin closure. A Silverlon dressing was placed. Patient was awakened by anesthesia and transferred to the [facility]. Patient was then transferred to the PACU for recovery. During the course of the procedure the physician radio host (PE) played a vital role. Their intimate knowledge of my steps in the procedure aided in safe and expedient completion of the procedure. The PE played a vital rolls in positioning particularly in obtaining the appropriate positioning of the sacral bump. The PE was also vital in the retraction of soft tissues during the exposure and especially the femoral work as this is a vital part of the procedure to prevent complications and fractures. The PE was also vital and protecting soft tissues during times of bony cuts and reaming. He also played a vital role in closure with my direct supervision. The PE was also important during reduction and dislocation of the joint and trials intraoperatively. Postoperative plan: Patient will get 24 hours postop antibiotics. Patient will get in-house physical therapy and will be weight-bear as tolerated. Patient will follow up in office in 2 weeks for a wound check and x-rays. Aspirin 81 mg twice daily. Complications No intraoperative complications Admit VTE Documentation VTE Present on Admission: No VTE Mechan Device Prophylaxis: SCD's and Thigh High THERESE Hose VTE Pharm Prophylaxis ordered?: Yes
--- NOTE | 2022-03-20 07:45 | RAD_ITS ---
STUDY: X-RAY - PELVIS AND LEFT HIP REASON FOR EXAM: Male, 76 years old. PAIN TECHNIQUE: 1 views of the pelvis and hip. COMPARISON: None. FINDINGS: Fluoroscopy of the left hip is utilized operating room during arthroplasty.. RAD/Hip 1 view with Pelvis IMPRESSION: Fluoroscopy during arthroplasty. Electronically Signed: Casey Barahona MD at 10:01 EDT ,
--- NOTE | 2022-03-20 08:45 | HIP_PTH ---
PATIENT: PATY SHEIKH II LOC: MS3 U#:[id number] AGE/SX: 76/M ROOM: MT319 RE03/20/[address]: Dr. Almas Larson MD : 1945 BED: 1 DIS: 03/21/2022 SPEC #: [id number] RECD: 03/20/22 10:40 STATUS: MONI SMITH #: [id number] ALFREDITO: 03/20/22 08:[address]: Almas Larson DEPT: SURGICAL PATHOLOGY RECD BY: Barbara Adams ENTERED: 03/20/22 11:33 SP TYPE: TOTAL HIP OTHR DR: Dr. Mathew Mishra DO Tissues: Hip, NOS Procedures: Decalcification bone/plaque Surgery Specimen Level IV HEADER OPERATION: ERAS, left total hip replacement, direct anterior approach PRE-OP DIAGNOSIS: Left hip primary osteoarthritis TISSUE SUBMITTED: Bone left hip MICROSCOPIC DIAGNOSIS Bone and tissue of left hip, total hip resection: Severe degenerative joint disease. AM:jagdish 03/26/2022 MICROSCOPIC DESCRIPTION Slides are reviewed. GROSS DESCRIPTION Received is one container labeled with the patient's name and designated bone left hip. The specimen consists of a deformed bay femoral head measuring 5.5 x 5 x 5 cm. Also present in the specimen container are multiple bone reamings and bone fragments aggregating to 9.5 x 8 x 1.5 cm. The articular surface displays prominent osteophyte formation, eburnation and bone erosion. Field Laboratory Operator sections are submitted in two cassettes after decalcification. / AM:jagdish 03/20/2022 TC:5 CPT: 83082, 61654
[2022-03-20 08:50] LABS: Bedside Glucose 130 mg/dL (74-106)
[2022-03-20] MEDS: Cefazolin 2 GM in 0.9% Normal Saline 100 ML IV (08:50)
[2022-03-20] MEDS: dexAMETHasone 10 MG/ML Vial IV (08:50)
[2022-03-20] MEDS: Lactated Ringers 1,000 ML 75 ML IV (09:00)
--- NOTE | 2022-03-20 10:50 | RAD_ITS ---
STUDY: X-RAY - PELVIS AND LEFT HIP REASON FOR EXAM: Male, 76 years old. Post Op -- AP both hips on single wendi/lateral of op hip PACU TECHNIQUE: 2 views of the pelvis and hip. COMPARISON: None. FINDINGS: There is a non-specific bowel gas pattern. Normal visualized soft tissue structures. Normal bilateral iliac wings, sacroiliac joints and visualized sacrum. Normal bilateral superior and inferior pubic rami. Normal pubic symphysis. Normal bilateral ischial tuberosities. Status post recent left hip arthroplasty with subcutaneous emphysema. The prosthesis appears located.. RAD/Hip Min 2 Views (Portable) IMPRESSION: Status post recent left hip arthroplasty. Electronically Signed: Casey Barahona MD at 11:24 EDT ,
[2022-03-20] MEDS: Ensure Surgery 237 ML LIQUID PO ×2 (13:41→17:05)
[2022-03-20] MEDS: Senna/Docusate Sodium 1 Tablet 2 TABLET PO ×2 (13:41→22:06)
[2022-03-20] MEDS: Famotidine 20 MG Tablet PO (13:41)
--- NOTE | 2022-03-20 14:38 | PCM.PN.HOSP ---
Subjective Subjective 76-year-old male presenting to the hospital for an elective left hip replacement. Doing well, denies any discomfort at this time and states that his medical history is stable with no recent medical changes. Objective Data Objective Data Vital Signs: Vital Signs Temp Pulse Resp BP Pulse Ox O2 Del Method O2 Flow Rate 97.4 F L 50 L 18 143/82 H 4 Nasal Cannula 4 03/20/22 12:29 03/20/22 12:38 03/20/22 12:29 03/20/22 12:29 03/20/22 12:29 03/20/22 12:38 03/20/22 12:38 Oxygen Flow Rate (L/min) 4 Oxygen Delivery Method Nasal Cannula Weight: 218 lb 4.122 oz Body Mass Index (BMI) 31.3 Intake & Output: Intake and Output for Last 24 Hours 03/19/22 03/20/22 03/21/22 03:59 03:59 03:59 Intake Total 3212 / 3212 Balance 3212 / 3212 Lab / Micro Data Labs: Laboratory Results - last 24 hr 03/20/22 06:43: POC Glucose 130 H Radiography Diagnostic Testing: Radiology Impression Hip/Pelvis X-Ray 03/20/22 07:45 IMPRESSION: Fluoroscopy during arthroplasty. Electronically Signed: Casey Barahona MD at 10:01 EDT , Hip X-Ray 03/20/22 10:50 IMPRESSION: Status post recent left hip arthroplasty. Electronically Signed: Casey Barahona MD at 11:24 EDT , Physical Exam Narrative General: Alert, Oriented x3, Cooperative, No apparent distress HEENT: Atraumatic, PERRLA, EOMI, Normocephalic Oral: Moist Mucosa Neck: Supple, No JVD Lungs: Clear to auscultation, Normal air movement, No rhonchi, No wheeze, No rales Cardiovascular: Regular rate, Regular Rhythm, Normal S1, Normal S2, No murmurs Abdomen: Soft, Non Tender, Non-Distended, No Hepato-splenomegaly Extremities: No edema, Capillary Refill Less than 3 Seconds Skin: Surgical dressing intact Musculoskeletal: No Tenderness to Palpation of Joints or Extremities Neurological: Cranial nerves II-XII grossly intact, Motor Exam 5/5 strength throughout, Sensory exam intact to light touch and pain Psych/Mental Status: Normal Affect, Appropriate Assessment & Plan Assessment/Plan (1) Osteoarthritis of left hip: (2) Status post left hip replacement: PLAN: Plan 1. Status post left hip replacement on 03/20/2022 for osteoarthritis ? Pain management per primary ? Anticoagulation per primary 2. CAD status post stent/HTN ? Blood pressures are doing well ? Continue with his home valsartan ? Monitor his function 3. History of a hemorrhagic stroke with post stroke seizure ? Continue with dopamine 4. GERD ? Stable ? Continue with lansoprazole, discussed with him the need for potentially switching to Pepcid however he does have a GI evaluation in June DVT: Aspirin twice daily per primary Charges/Coding Visit Charges OBSV E&M: 32679 Subsequent observation care L2
--- NOTE | 2022-03-20 16:11 | CHAPLAIN ---
Type of Pastoral Visit _x__ Initial Visit ___ Follow-up Visit ___ On-call Visit ___ General Patient Visit ___ Spiritual Assessment ___ Family Conference ___ Bereavement ___ Rapid Response ___ Code Blue ___ Other (describe below) Pastoral Care Referral From _x_ Patient ___ Family ___ Nurse ___ Physician ___ Registered Respiratory Therapist ___ Interior Specialist ___ Other (describe below) Sacrament/Intervention _x__ Active listening ___ Anointing ___ Sabianism ___ Bereavement ___ Communion _x__ Pepper exploration ___ _x__ Life review _x__ Prayer ___ Reconciliation ___ Sacrament of Sick _x__ Supportive presence ___ Wedding ___ Other (describe below) Pastoral Comments 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
[2022-03-20] MEDS: Cefazolin 1 GM/50 ML BAG IV (17:05)
[2022-03-20] MEDS: Aspirin 81 MG TAB.CHEW PO (17:05)
[2022-03-21] VITALS (7 sets, daily range): BP systolic 137–144; BP diastolic 69–95; PULSE 62–73; RESP 16–18; TEMP 36.5–37; O2SAT 94–97
[2022-03-21] MEDS: Cefazolin 1 GM/50 ML BAG IV (01:38)
[2022-03-21 05:32] LABS: Hematocrit 41.6 % (40-54); Hemoglobin 13.6 g/dL (13.0-16.5); Mean Corp Hgb Conc 32.7 g/dL (32-36); Mean Corpuscular Hgb 30.3 pg (27.0-32.0); Mean Corpuscular Volume 92.7 fL (80-94); Mean Platelet Vol. 10.9 fl (6.2-12.0); Platelet Count 161 K/mm3 (150-450); RBC Distribution Width CV 14.1 % (11.6-14.6); RBC Distribution Width SD 47.8 fl (35.1-43.9); Red Blood Count 4.49 M/mm3 (4.6-6.2); White Blood Count 9.6 K/mm3 (4.4-11.0)
[2022-03-21 05:48] LABS: Anion Gap 6 (5-15); BUN 25 mg/dL (7-18); BUN/Creat Ratio 26.6 RATIO (10-20); Calcium,Total 9.2 mg/dL (8.5-10.1); Chloride 111 mmol/L (98-107); Creatinine, Serum 0.94 mg/dL (0.70-1.30); EST Glomerular Filtration Rate 83 mL/min (>60); Est Glom Filt Rate - Afr Amer 100 mL/min (>60); Estimated Creatinine Clearance 70.11 ml/min; Glucose 130 mg/dL (74-106); Potassium 4.2 mmol/L (3.5-5.1); Sodium Level 139 mmol/L (136-145)
[2022-03-21] MEDS: Acetaminophen 500 MG Tablet 1000 MG PO (06:01)
[2022-03-21] MEDS: Calcium Carbonate 500 MG Tablet PO (07:33)
[2022-03-21] MEDS: Aspirin 81 MG TAB.CHEW PO (07:33)
[2022-03-21] MEDS: Senna/Docusate Sodium 1 Tablet 2 TABLET PO (07:33)
[2022-03-21] MEDS: Famotidine 20 MG Tablet PO (07:33)
[2022-03-21] MEDS: VALSARTAN 40 MG TABLET 20 MG PO (07:36)
[2022-03-21] MEDS: Ensure Surgery 237 ML LIQUID PO ×2 (07:36→11:17)
--- NOTE | 2022-03-21 09:50 | PCM.PN.ORT ---
Subjective Subjective Patient is s/p left sided total hip arthroplasty with Dr. Larson. Patient resting comfortably in bed. Rates pain 6/ 10 at rest. With movement 8/10. States taking Tylenol and oxycodone and ice help to relieve pain. Patient has been up with therapy. Walking with the assit of a walker. Afebrile, no chest pain, shortness of breath, negative calf pain/ erythema, and no other signs of DVT. Dressing was changed last night due to saturation. Since then there has been just a small area of dried blood at the most superior portion of the dressing. Objective Data Objective Data Vital Signs: Vital Signs Temp Pulse Resp BP Pulse Ox O2 Del Method O2 Flow Rate 97.7 F L 62 16 144/91 H 95 Room Air 4 03/21/22 07:23 03/21/22 07:23 03/21/22 07:23 03/21/22 07:23 03/21/22 07:23 03/21/22 07:23 03/21/22 01:48 Oxygen Flow Rate (L/min) 4 Oxygen Delivery Method Room Air Weight: 99 kg Body Mass Index (BMI) 31.3 Intake & Output: Intake and Output for Last 24 Hours 03/19/22 03/20/22 03/21/22 23:59 23:59 23:59 Intake Total 3262 / 3812 800 / 800 Balance 3262 / 3812 800 / 800 Lab / Micro Data Result Diagrams: 03/21/22 04:31 03/21/22 04:31 Labs: Laboratory Results - last 24 hr 03/21/22 04:31: WBC 9.6, RBC 4.49 L, Hgb 13.6, Hct 41.6, MCV 92.7, MCH 30.3, MCHC 32.7, RDW Std Deviation 47.8 H, RDW Coeff of Burak 14.1, Plt Count 161, MPV 10.9 03/21/22 04:31: Sodium 139, Potassium 4.2, Chloride 111 H, Carbon Dioxide 22.0, Anion Gap 6, BUN 25 H, Creatinine 0.94, Estim Creat Clear Calc 70.11, Est GFR (MDRD) Af Amer 100, Est GFR (MDRD) Non-Af 83, BUN/Creatinine Ratio 26.6 H, Glucose 130 H, Calcium 9.2 Radiography Diagnostic Testing: Radiology Impression Hip/Pelvis X-Ray 03/20/22 07:45 IMPRESSION: Fluoroscopy during arthroplasty. Electronically Signed: Casey Barahona MD at 10:01 EDT , Hip X-Ray 03/20/22 10:50 IMPRESSION: Status post recent left hip arthroplasty. Electronically Signed: Casey Barahona MD at 11:24 EDT , Physical Exam Narrative Patient resting comfortably in bed No signs of acute distress Satting well on room air Limb is warm to touch, Sensation intact throughout entire lower extremity, including saphenous, sural, superficial and deep peroneal, and tibial distribution. DP/PT pulses bounding. Dorsi plantarflexion strength 5/5 Dressing small amount of dried blood at superior portion. Otherwise clear dry intact. Calf nontender to palpation, no erythema, no edema. Negative Homans Assessment & Plan Assessment/Plan (1) Osteoarthritis of left hip: (2) Status post left hip replacement: PLAN: 1. Will continue PT today. Weightbearing as tolerated 2. plan for discharge this afternoon following PT 3. Patient will follow up for post op appointment in 2 weeks as previously scheduled 4. Patient has outpatient PT appointment scheduled 5. WBC 9.6 no acute reactive leukocytosis 6. H/H 13.6/41.6 7. DVT prophylaxis : Aspirin 81 mg twice daily x4 weeks 8. Pain control: patient instructed to take tylenol 500mg 2 tablets TID. and oxycodone 1-2 tablets every 4-6 hours only as needed for pain control. 9. ok to remove post op dressing. post op day 5
[2022-03-21] MEDS: Topiramate 25 MG Tablet PO (09:54)
--- NOTE | 2022-03-21 10:39 | DCINST_ITS ---
Discharge Instructions Diet Discharge Diet: No restrictions Activity Discharge Activity: Return to Normal Activity, No Restrictions and May Shower Weight Bearing Status: Weight bearing as tolerated Dressing / Incision Call your doctor if your incision/area has: Continuous Slow Oozing, Sudden Increased Bleeding, Increased Pain/ Swelling, Increased Redness, Foul Smelling Discharge and Swelling at the incision site Call your doctor if you observe: Fever of 101 or Higher, Shortness of breath, Chest pain, Calf discomfort and Uncontrolled pain Remove Dressing in: 5 days Cleanse incision/area with: Soap & Water and Keep Dressing Clean & Dry Follow Up Care Test Results: Test results from this visit will be discussed in further detail at your follow- up appointment, if applicable. Discharge Plan Admission Admit Date/Time: 03/20/22 06:58 Attending Provider: Almas Larson Primary Care Provider: Mathew Mishra Consulting Providers: Anthony White Mark Discharge Orders/Prescriptions Prescriptions: New acetaminophen 500 mg Tablet 1,000 mg PO Q8 Qty: 180 0RF aspirin 81 mg Tablet,Chewable 81 mg PO BIDCM Qty: 60 0RF oxycodone 5 mg Tablet 5 - 10 mg PO Q4H PRN PRN (Reason: Pain Score 4-10) 7 Days Qty: 60 0RF Continued mometasone 0.1 % topical ointment 0.1 % ointment 1 applic TOPICAL .COMPLEX Label Comments: 1 applic TOPICAL as directed to ears; Rx Instructions: 1 applic TOPICAL as directed to ears; calcium carbonate [Tums] 200 mg calcium (500 mg) tablet,chewable 200 mg PO DAILY topiramate [Topamax] 25 mg tablet 25 mg PO DAILY valsartan 40 mg tablet 20 mg PO DAILY lidocaine HCl [Aspercreme (lidocaine HCl)] 4 % Cream 1 applic TOPICAL BID PRN (Reason: ARTHRITIS CREAM) Orthomune 1 cap PO/SL DAILY Relief Factor 1 cap PO/SL DAILY lansoprazole [Prevacid] 30 mg capsule,delayed release(DR/EC) 30 mg PO QDAY Qty: 90 3RF nitroglycerin 0.4 mg tablet, sublingual 0.4 mg SUBLINGUAL Q5-15M PRN (Reason: chest pain) Qty: 25 3RF Discontinued ibuprofen [Advil] 200 mg tablet 200 mg PO Q6H PRN (Reason: Pain) acetaminophen 500 mg tablet 1,000 mg PO Q6H PRN (Reason: Pain) Excedrin Extra Strength 250-250-65 mg tablet 1 tab PO DAILY Tylenol PM 25-500 mg-mg/mL Solution 25 ml PO QHS Referrals / Follow Up: Mathew Mishra DO [Primary Care Provider] - Disposition Disposition (needs filled in before D/C Order can be placed): Home, Self Care
--- NOTE | 2022-03-21 13:28 | CASEMGMT ---
YAKELIN LUJAN in to discuss HART form with patient. YAKELIN LUJAN explained HART form, patient voiced understanding. Pt signed form and filed in chart. Pt provided with a copy of signed HART form. Patient had no further questions or concerns at this time. Pt has his outpt therapy set up at [facility] and denies further needs. Pt ready for dc.
== END 2022-03-21 14:19 | disposition home or self-care (01) ==
LOC: SDC 10:58 → MS3 10:58
PROVIDERS: Admitting Provider Specialist; PCP Preventive Medicine Occupational Medicine; Referring Provider Specialist; Visit Provider Specialist
PROC: (CPT 27284; principal; 2022-03-20 08:20)
DX: M16.12 Unilateral primary osteoarthritis, left hip (principal); E85.4 Organ-limited amyloidosis; I25.10 Atherosclerotic heart disease of native coronary artery without angina pectoris; I68.0 Cerebral amyloid angiopathy; K21.9 Gastro-esophageal reflux disease without esophagitis; I10 Essential (primary) hypertension; E78.00 Pure hypercholesterolemia, unspecified; I25.2 Old myocardial infarction; Z79.899 Other long term (current) drug therapy; Z86.16 Personal history of COVID-19; Z85.72 Personal history of non-Hodgkin lymphomas; Z86.2 Personal history of diseases of the blood and blood-forming organs and certain disorders involving the immune mechanism; R06.02 Shortness of breath; Z95.5 Presence of coronary angioplasty implant and graft
CPT/HCPCS: 27130; 01214; 36415; 73501; 73502; 76000; 80048; 82962; 85027; 88305; 88311; 96365; 96366; 97110; 97116; 97162; 97166; 97530; 97535; 99218; 99251; C1776; J7120; G0378; G0463; J2405; J3475

== ENCOUNTER → 2022-06-10 | Outpatient (CLI) | payer MEDICARE, SELFPAY ==
[2022-06-10 12:53] LABS: PSA,Total - Annual Screen 0.24 ng/mL (0.00-4.00)
== END | disposition home or self-care (01) ==
LOC: LAB 11:51
PROVIDERS: PCP Preventive Medicine Occupational Medicine; Visit Provider Registered Nurse
DX: Z12.5 Encounter for screening for malignant neoplasm of prostate (principal)
CPT/HCPCS: 36415; 84153; G0103

== ENCOUNTER 2022-06-25 10:50 | Day surgery (SDC) | payer MEDICARE, SELFPAY ==
[2022-06-25 11:21] VITALS: BP 95/71; PULSE 87; RESP 16; TEMP 36.4; O2SAT 98; BMI 31.4
[2022-06-25] MEDS: Lactated Ringers 1,000 ML 15 ML IV (11:29)
--- NOTE | 2022-06-25 12:00 | COLBX_PTH ---
PATIENT: PATY SHEIKH II LOC: EN U#:[id number] AGE/SX: 76/M ROOM: RE06/25/[address]: Dr. Melquiades George DO : 1945 BED: DIS: 06/25/2022 SPEC #: [id number] RECD: 06/25/22 17:06 STATUS: MONI REBaylee #: [id number] ALFREDITO: 06/25/22 12:[address]: Melquiades George DEPT: SURGICAL PATHOLOGY RECD BY: Barbara Adams ENTERED: 06/26/22 10:40 SP TYPE: COLON BX OTHR DR: DO Adriana Goel, MORTGAGE COLLECTOR-C Tissues: A - Esophagus, NOS B - Ascending colon C - Descending colon Procedures: Special Stain Group II Surgery Specimen Level IV Alcian Blue/PAS (control) HEADER OPERATION: Colonoscopy and polypectomy, EGD, biopsy, fulguration of AVM PRE-OP DIAGNOSIS: GERD, tubular adenoma of colon TISSUE SUBMITTED: A ? Distal esophagus biopsy, B ? Ascending colon, polyp, C ? Descending colon, polyp MICROSCOPIC DIAGNOSIS A. Distal esophagus, biopsy: Gastroesophageal junctional mucosa with chronic inflammation. No evidence of goblet cell metaplasia. See comment. B. Ascending colon polyp, biopsy: Polypoid fragments of benign colonic mucosa. See comment. C. Descending colon, biopsy: Fragments of tubular adenoma. AM:jagdish 06/27/2022 COMMENT A. Alcian blue/PAS stain with matched control supports the above diagnosis. B. Neither hyperplastic nor adenomatous change is identified. MICROSCOPIC DESCRIPTION Slides are reviewed. GROSS DESCRIPTION A - Received in fixative is one container labeled with the patient's name and designated distal esophagus biopsy. The specimen consists of two irregular fragments of light bay soft tissue that in aggregate measure 0.6 x 0.3 x 0.1 cm. The specimen is totally submitted in one cassette. B - Received in fixative is one container labeled with the patient's name and designated ascending colon polyp. The specimen consists of two irregular fragments of light bay soft tissue that in aggregate measure 0.4 x 0.2 x 0.1 cm. The specimen is totally submitted in one cassette. C - Received in fixative is one container labeled with the patient's name and designated polyp descending colon. The specimen consists of two irregular fragments of light bay soft tissue that in aggregate measure 0.8 x 0.5 x 0.2 cm. The specimen is totally submitted in one cassette. / SJ:rg 06/26/2022 TC:5 CPT: 29611 x3, 55695
--- NOTE | 2022-06-25 14:41 | HP.PCM_ITS ---
History and Physical Date of Admission: 06/25/22 76 M who presents to the office today for GERD, hx colon polyps. His mother and brother both from colon cancer. He is a former patient of Dr Stinson at [facility], last colonoscopy 2018, tubular adenoma then, due for repeat now. Has GERD, he is on PPI therapy, he takes lansoprazole 30 mg daily, still some reflux at night approx once every 4-6 wks, typically after having spicy food, that has gotten worse over the years. No hx of Bill's esophagus. No nausea, vomiting, dysphagia, abd pain, bloating. Denies diarrhea, constipation, melena, hematochezia. ROS Const Constitutional: Positive for weakness; No fatigue ENT ENT: No difficulty swallowing Cardio Cardiology: Positive for leg pain with exertion Gastro GI: Positive for change in bowel habits and heartburn; No abdominal pain, belching, bloating, change in stool character, coffee ground emesis, constipation, cramping, diarrhea, difficulty swallowing, feeling full early, excessive flatus, incontinent of stools, Vomiting blood/hematemesis, Blood in stool, loose stools, Black,tarry stools, nausea/dyspepsia, pain with swallowing, vomiting or other Musc Musculoskeletal: Positive for abnormal gait, joint pain, back pain, muscle weakness, stiffness, Arthritis, sciatica, leg pain at night and leg pain with exertion Skin Skin: No yellowing of the eye or itchy eyes Neuro Neurology: Positive for abnormal gait and weakness Psych Psychiatric: No anxiety and No depression Endo Endocrine: No fatigue Aller/Imm Allergy/Immunologic: No itchy eyes Henry/Lymp Hematologic/Lymphatic: No easy bleeding or easy bruising Exam Const General: cooperative, healthy appearing and comfortable Quality Reporting Tobacco Screening ([facility] 138) Smoking Status: Never smoker Assessment and Plan Assessment and Plan (1) GERD (gastroesophageal reflux disease): ?Status:?Acute ?Plan: Hx GERD, on PPI therapy, still with some occas acid reflux after eating [place] food. FH colon cancer--both brother and mother from colon cancer, and hx of tubular adenoma in colon. He will be scheduled for EGD and colonoscopy, with f/u in office 2 wks later to review results. Continue lansoprazole (2) Tubular adenoma of colon: ?Status:?Acute ?Plan: as above (3) FH: colon cancer in relative diagnosed at >50 years old: ?Status:?Acute ?Plan: as above I have examined the patient and the H&P has been reviewed. There are no clinical changes since date of exam.
--- NOTE | 2022-06-25 15:28 | OP.EGD_ITS ---
Patient Name: Fransisco Schneider Procedure Date: 06/25/2022 2:46 PM Date of : 1945 Age: 76 Procedure: Upper GI endoscopy Indications: Heartburn Providers: Melquiades George DO Referring MD: Melquiades George DO Medicines: Monitored Anesthesia Care Patient Profile: This is a 76 year old male. Refer to note in patient chart for documentation of history and physical. Patient has symptoms of chronic heartburn. Complications: No immediate complications. Procedure: Pre-Anesthesia Assessment: - Prior to the procedure, a History and Physical was performed, and patient medications and allergies were reviewed. The risks and benefits of the procedure and the sedation options and risks were discussed with the patient. All questions were answered and informed consent was obtained. Patient identification and proposed procedure were verified by the physician in the pre-procedure area. Mental Status Examination: alert and oriented. Airway Examination: normal oropharyngeal airway and neck mobility. Respiratory Examination: clear to auscultation. CV Examination: normal. Prophylactic Antibiotics: The patient does not require prophylactic antibiotics. Prior Anticoagulants: The patient has taken no previous anticoagulant or antiplatelet agents. ASA Grade Assessment: II - A patient with mild systemic disease. After reviewing the risks and benefits, the patient was deemed in satisfactory condition to undergo the procedure. The anesthesia plan was to use monitored anesthesia care (MAC). Immediately prior to administration of medications, the patient was re-assessed for adequacy to receive sedatives. The heart rate, respiratory rate, oxygen saturations, blood pressure, adequacy of pulmonary ventilation, and response to care were monitored throughout the procedure. The physical status of the patient was re-assessed after the procedure. After obtaining informed consent, the endoscope was passed under direct vision. Throughout the procedure, the patient's blood pressure, pulse, and oxygen saturations were monitored continuously. The colonoscope was introduced through the mouth, and advanced to the second part of duodenum. The upper GI endoscopy was accomplished without difficulty. The patient tolerated the procedure well. Scope In: 2:58:58 PM Scope Out: 3:03:28 PM Total Procedure Duration Time 0 hours 4 minutes 30 seconds Findings: The Z-line was irregular and was found 38 cm from the incisors. Biopsies were taken with a cold forceps for histology. Verification of patient identification for the specimen was done. Estimated blood loss was minimal. A medium-sized hiatal hernia was present. The cardia and gastric fundus were normal on retroflexion. A single 5 mm angiodysplastic lesion with bleeding was found in the duodenal bulb. Coagulation for hemostasis using heater probe was successful. Coagulation for hemostasis using bipolar probe was successful. Estimated blood loss was minimal. Impression: - Z-line irregular, 38 cm from the incisors. Biopsied. - Medium-sized hiatal hernia. - A single bleeding angiodysplastic lesion in the duodenum. Treated with a heater probe. Treated with bipolar cautery. Recommendation: - Discharge patient to home. - Resume previous diet. - Continue present medications. - Await pathology results. Procedure Code(s): --- Professional --- 68134, 59, Esophagogastroduodenoscopy, flexible, transoral; with control of bleeding, any method 50517, Esophagogastroduodenoscopy, flexible, transoral; with biopsy, single or multiple CPT copyright 2017 [employer]. All rights reserved. The codes documented in this report are preliminary and upon bicycle subassembler review may be revised to meet current compliance requirements. Melquiades George DO 06/25/2022 3:28:04 PM This report has been signed electronically. Number of Addenda: 0 Note Initiated On: 06/25/2022 2:46 PM
--- NOTE | 2022-06-25 15:28 | OP.CCLET_ITS ---
06/25/2022 Mathew Mishra [address] [place] [address] Re : Upper GI endoscopy procedure for Fransisco Schneider Dear Dr. Mishra This procedure was performed on Saturday, June 25, 2022. My impressions and recommendations are as follows: Impressions : - Z-line irregular, 38 cm from the incisors. Biopsied. - Medium-sized hiatal hernia. - A single bleeding angiodysplastic lesion in the duodenum. Treated with a heater probe. Treated with bipolar cautery. Recommendations : - Discharge patient to home. - Resume previous diet. - Continue present medications. - Await pathology results. My findings are described in the full procedure note, which is enclosed. If I can be of further assistance, please feel free to contact me at . Sincerely, Melquiades George, 06/25/2022 3:28:04 PM This report has been signed electronically.
[2022-06-25 15:30] VITALS: BP 129/85; BP 95/71; PULSE 65; RESP 16; TEMP 36.4; O2SAT 95
--- NOTE | 2022-06-25 15:33 | OP.CCLET_ITS ---
06/25/2022 Mathew Mishra [address] [place] [address] Re : Colonoscopy procedure for Fransisco Schneider Dear Dr. Mishra This procedure was performed on Saturday, June 25, 2022. My impressions and recommendations are as follows: Impressions : - Diverticulosis in the recto-sigmoid colon, in the sigmoid colon and in the descending colon. - Three 1 to 2 mm polyps in the descending colon and in the ascending colon, removed with a hot snare. Resected and retrieved. Recommendations : - Discharge patient to home. - Resume previous diet. - Continue present medications. - Await pathology results. - Repeat colonoscopy in 3 years for surveillance. My findings are described in the full procedure note, which is enclosed. If I can be of further assistance, please feel free to contact me at . Sincerely, Melquiades George, 06/25/2022 3:32:39 PM This report has been signed electronically.
--- NOTE | 2022-06-25 15:33 | OP.COLON_ITS ---
Patient Name: Fransisco Schneider Procedure Date: 06/25/2022 3:03 PM Date of : 1945 Age: 76 Procedure: Colonoscopy Indications: Follow-up for history of adenomatous polyps in the colon Providers: Melquiades Goerge DO Referring MD: Melquiades George DO Medicines: Monitored Anesthesia Care Patient Profile: This is a 76 year old male. Refer to note in patient chart for documentation of history and physical. Patient has symptoms of chronic heartburn. Last Colonoscopy: 3 years ago. Complications: No immediate complications. Procedure: Pre-Anesthesia Assessment: - Prior to the procedure, a History and Physical was performed, and patient medications and allergies were reviewed. The risks and benefits of the procedure and the sedation options and risks were discussed with the patient. All questions were answered and informed consent was obtained. Patient identification and proposed procedure were verified by the physician in the pre-procedure area. Mental Status Examination: alert and oriented. Airway Examination: normal oropharyngeal airway and neck mobility. Respiratory Examination: clear to auscultation. CV Examination: normal. Prophylactic Antibiotics: The patient does not require prophylactic antibiotics. Prior Anticoagulants: The patient has taken no previous anticoagulant or antiplatelet agents. ASA Grade Assessment: II - A patient with mild systemic disease. After reviewing the risks and benefits, the patient was deemed in satisfactory condition to undergo the procedure. The anesthesia plan was to use monitored anesthesia care (MAC). Immediately prior to administration of medications, the patient was re-assessed for adequacy to receive sedatives. The heart rate, respiratory rate, oxygen saturations, blood pressure, adequacy of pulmonary ventilation, and response to care were monitored throughout the procedure. The physical status of the patient was re-assessed after the procedure. After I obtained informed consent, the scope was passed under direct vision. Throughout the procedure, the patient's blood pressure, pulse, and oxygen saturations were monitored continuously. The colonoscope was introduced through the anus and advanced to the cecum, identified by appendiceal orifice and ileocecal valve. The colonoscopy was performed without difficulty. The patient tolerated the procedure well. The quality of the bowel preparation was good. Scope In: 3:05:52 PM Scope Withdrawal Time 0 hours 11 minutes 6 seconds Scope Out: 3:20:27 PM Total Procedure Duration Time 0 hours 14 minutes 35 seconds Findings: The perianal and digital rectal examinations were normal. A few small and large-mouthed diverticula were found in the recto-sigmoid colon, sigmoid colon and descending colon. Three sessile polyps were found in the descending colon and ascending colon. The polyps were 1 to 2 mm in size. These polyps were removed with a hot snare. Resection and retrieval were complete. Verification of patient identification for the specimen was done. Estimated blood loss was minimal. No additional abnormalities were found on retroflexion. Impression: - Diverticulosis in the recto-sigmoid colon, in the sigmoid colon and in the descending colon. - Three 1 to 2 mm polyps in the descending colon and in the ascending colon, removed with a hot snare. Resected and retrieved. Recommendation: - Discharge patient to home. - Resume previous diet. - Continue present medications. - Await pathology results. - Repeat colonoscopy in 3 years for surveillance. Procedure Code(s): --- Professional --- 26274, Colonoscopy, flexible; with removal of tumor(s), polyp(s), or other lesion(s) by snare technique CPT copyright 2017 [employer]. All rights reserved. The codes documented in this report are preliminary and upon performance test architect review may be revised to meet current compliance requirements. Melquiades George DO 06/25/2022 3:32:39 PM This report has been signed electronically. Number of Addenda: 0 Note Initiated On: 06/25/2022 3:03 PM
[2022-06-25 15:35] VITALS: BP 132/83; BP 95/71; PULSE 69; RESP 16; O2SAT 95
[2022-06-25 15:40] VITALS: BP 133/93; BP 95/71; PULSE 65; RESP 16; O2SAT 96
[2022-06-25 15:45] VITALS: BP 146/93; BP 95/71; PULSE 58; RESP 16; TEMP 36.2; O2SAT 97
[2022-06-25 15:57] VITALS: BP 95/71
== END 2022-06-25 16:17 | disposition home or self-care (01) ==
LOC: EN 10:53 → AC 10:53
PROVIDERS: PCP Preventive Medicine Occupational Medicine; Referring Provider Internal Medicine Gastroenterology; Visit Provider Internal Medicine Gastroenterology
PROC: 0DJD8ZZ Inspection of Lower Intestinal Tract, Via Natural or Artificial Opening Endoscopic (ICD-10-PCS; CPT 45378; principal; 2022-06-25 11:55)
DX: K31.811 Angiodysplasia of stomach and duodenum with bleeding (principal); K21.00 Gastro-esophageal reflux disease with esophagitis, without bleeding; D12.4 Benign neoplasm of descending colon; K44.9 Diaphragmatic hernia without obstruction or gangrene; K57.30 Diverticulosis of large intestine without perforation or abscess without bleeding; Z80.0 Family history of malignant neoplasm of digestive organs
CPT/HCPCS: 45385; 43239; 43255; 88305; 88313; J7120; J2405

== ENCOUNTER → 2022-11-27 | Outpatient (CLI) | payer MEDICARE, SELFPAY ==
--- NOTE | 2022-11-27 07:04 | CDU_ITS ---
Reason For Study: Bruit Rt. Velocities/BP Lt. Velocities/BP Prox CCA 90/17.3 cm/sec. Prox CCA 83.9/16.8 cm/sec. Mid CCA 80.6/19.2 cm/sec. Mid CCA 66.3/16.8 cm/sec. Dist CCA 63.6/17.3 cm/sec. Dist CCA 63/15.7 cm/sec. Prox ICA 44.7/10.7 cm/sec. Prox ICA 47.6/17.9 cm/sec. Mid ICA 61.7/20.1 cm/sec. Mid ICA 65.2/22.3 cm/sec. Dist ICA 62.4/21.4 cm/sec. Dist ICA 67.4/23.4 cm/sec. Rt. ICA/CCA = 0.77. Lt. ICA/CCA = 1.02. Prox ECA 62.6/6.9 cm/sec. Prox ECA 71.8/6.9 cm/sec. Rt. Vert. 42.1/11.3 cm/sec. Lt. Vert. 54.2/13.5 cm/sec. Right Extracranial There is intimal thickening but no significant atherosclerotic plaque noted in the right common carotid artery. There is heterogeneous, irregular atherosclerotic plaque noted in the right internal carotid artery. There is intimal thickening but no significant atherosclerotic plaque noted in the right external carotid artery. Antegrade flow is noted in the right vertebral artery. Left Extracranial There is homogeneous, smooth atherosclerotic plaque noted in the left common carotid artery. There is heterogeneous, irregular atherosclerotic plaque noted in the left internal carotid artery. There is intimal thickening but no significant atherosclerotic plaque noted in the left external carotid artery. Antegrade flow is noted in the left vertebral artery. Procedure Carotid Duplex 80416. This is a Carotid Duplex examination using B-mode, color flow and specral Doppler. Exam performed in department. VL/Carotid Duplex Ultrasound Interpretation Summary Irregular calcific plaque with shadowing at the proximal right internal carotid artery with less than 50% stenosis Less than 50% stenosis right external carotid artery Irregular calcific plaque at the proximal left internal carotid with a more mil d amount of calcific shadowing and less than 50% stenosis Less than 50% stenosis left external carotid artery Patent and antegrade vertebral arteries bilaterally Ordering Physician: Robin Garber Referring Physician: Mathew Mishra Performed By: Zahraa Arias RVT
--- NOTE | 2022-11-27 17:12 | STRESSREP ---
Stress Test Report Exercise myocardial perfusion stress test. 77-year-old man with a history of coronary artery disease Stress protocol: Resting EKG demonstrates normal sinus rhythm with a rate of 52 bpm resting blood pressure is 144/70 mmHg. The patient exercised according to the regular Tk protocol for a total duration of 6 minutes attaining a maximum heart rate of 123 bpm which was 85% of maximum predicted heart rate; the maximum workload was 7 metabolic equivalents. At rest there were no ST or T wave changes noted to suggest ischemia and at peak exercise upsloping ST changes only were noted which did not meet the criteria for ischemia. No clinical angina was noted the test was terminated due to the target heart rate being achieved/fatigue. The peak blood pressure was 160/58 mmHg. Rate-pressure product was 18,800. Myocardial perfusion protocol. 14.4 mCi of technetium 99m sestamibi was injected at rest. The patient exercised according to regular Tk protocol for total duration of 6 minutes and at peak exercise 44.7 mCi of technetium 99m sestamibi was injected stress images were obtained stress and rest images were reconstructed in comparing the short axis vertical long and horizontal long axis. Gated images were also obtained. Perfusion SPECT analysis: Review of the stress images demonstrate normal uptake of tracer noted in all areas of the myocardium. The resting images similarly demonstrate normal uptake of tracer noted in all areas of the myocardium. No areas of reversibility are noted to suggest ischemia no previous infarct was noted. Gated SPECT analysis: The gated ejection fraction is 61%. Conclusion: Normal exercise myocardial perfusion stress test at a moderate workload Preserved ejection fraction.
== END | disposition home or self-care (01) ==
LOC: CVS 07:03
PROVIDERS: PCP Preventive Medicine Occupational Medicine; Referring Provider Internal Medicine Cardiovascular Disease; Visit Provider Internal Medicine Cardiovascular Disease
DX: I25.10 Atherosclerotic heart disease of native coronary artery without angina pectoris (principal); Z95.5 Presence of coronary angioplasty implant and graft; Z86.73 Personal history of transient ischemic attack (TIA), and cerebral infarction without residual deficits
CPT/HCPCS: 78452; 93017; 93880; A9500; A4216; J2785

== ENCOUNTER → 2023-07-14 | Outpatient (CLI) | payer MEDICARE, SELFPAY ==
--- OUTSIDE RECORDS SUMMARY | 2023-07-14 08:04 | XMS RPT_ITS | CCD ---
Author Name Unknown Address [address] [place] [address] Organization [facility] Care Team Providers Care Embossing Clerk Name Role Phone Souleymane Suzi Unavailable Unavailable Harper BANDAGE WINDING MACHINE OPERATOR, Emeka Mccall Unavailable Suzi Comer Unavailable Unavailable Glendy Marino Unavailable Unavailable ZOIE CANO DO Primary Care Physician Keshawn PT, Stefany Unavailable Unavailable ZOIE CANO DO Primary Care Physician LINA CARRERA-SANDOR, BRENNA Navarrete Primary Care Physicia n ZOIE CANO Primary Care Unavailable RENETTA VILLALOBOS MD Attending Unavailable LINA ARRIAGAN-SANDOR, BRENNA S Primary Care Unava ilable LINA CARRERA-SANDOR, [facility] Primary Care Unava ilable LINA NIEVES, BRENNA Navarrete Attending Unava ilable LINA NIEVES, [facility] Primary Care Unava ilriya VILLEGAS MD, DR SOLO HOFFMAN Attending Unavai lable LINA CARRERA-SANDOR, [facility] Primary Care Unava ilable NANCY WHITNEY, DR VICTOR M Kyle Attending Unavailable Allergies Allergy Classification Reported Allergen(s) Allergy Type Date of Onset Reaction(s) Facility (8 sources) abciximab drug allergy 3 Hives [facility] Work Phone: (18 sources) atorvastatin; Translations: [atorvastatin] drug allergy 3 Joint pain (finding) [facility] Work Phone: (18 sources) cimetidine; Translations: [Cimetidine] drug allergy 3 Stomach ache (finding) [facility] Work Phone: (18 sources) ezetimibe; Translations: [ezetimibe] drug allergy 3 Numbness of finger (finding) [facility] Work Phone: [phone] (4 sources) Sulfonamides (Antibiotic) drug allergy 3 hives. edema [facility] Work Phone: (15 sources) Fenofibrate; Translations: [fenofibrate] Drug Allergy 9 Joint pain (finding) [facility] (14 sources) Histamine / Menthol; Translations: [menthol topical] Drug Allergy [facility] (14 sources) Sulfonamides (Antibiotic); Translations: [sulfa drugs] Drug allergy Swelling (finding), Weal (disorder) [facility] (11 sources) hydrALAZINE; Translations: [hydralazine] Drug Allergy severe allergic reaction [facility] (1 source) Aspirin; Translations: [ASPIRIN] Drug Allergy 0 [facility] (1 source) atorvastatin; Translations: [ATORVASTATIN CALCIUM] Drug Allergy 0 [facility] (1 source) Camphor / Menthol; Translations: [CAMPHOR-MENTHOL ] Drug Allergy 9 [facility] (1 source) Cimetidine; Translations: [CIMETIDINE] Drug Allergy 0 [facility] (1 source) clopidogrel; Translations: [CLOPIDOGREL BISULFATE] Drug Allergy 0 [facility] (1 source) ezetimibe; Translations: [EZETIMIBE] Drug Allergy 0 [facility] (1 source) Sulfonamides (Antibiotic); Translations: [SULFA (SULFONAMIDE ANTIBIOTICS)] Propensity to adverse reactions to drug (disorder) 0 [facility] Medications Current Medications Medication Drug Class(es) Dates Sig (Normalized) Sig (Original) acetaminophen 500 mg oral capsule (19 sources) Start: 12-07-2021 acetaminophen 500 mg oral capsule Dose : 500 mg = 1 cap(s), Oral, q6hr, 0 Refill(s) Start Date: 12/07/21 Status: Ordered Completed/Discontinued Medications Medication Drug Class(es) Dates Sig (Normalized) Sig (Original) AdultMultivitaminChewable (3 sources) Start: 020 AdultMultivitaminChewable AdultMultivitaminChewable, 2 chewables, Oral, qDay, 0 Refill(s), 100.9 Start Date: 12/22/19 Status: Ordered [id number] INE (3 sources) Start: 017 EXCEDRIN EXTRA STRENGTH 250-250-65 MG TABS As needed [id number] EINE [id number] Kendrick Villanueva MD Problems Active Problems Problem Classification Problem Date Documented Da te Episodic/Chronic Abdominal pain (20 sources) Inguinal pain; Translations: [Left flank pain] Onset: 07-15-2016 07-15-2016 Episodic Acute cerebrovascular disease (2 sources) Subarachnoid hemorrhage; Translations: [Nontraumatic subarachnoid hemorrhage, unspecified] Onset: 07-30-2021 Chronic Acute myocardial infarction (11 sources) 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; Translations: [Myocardial infarction] Onset: 05-26-2010 03-25-2013 Chronic Past or Other Problems Problem Classification Problem Date Documented Da te Episodic/Chronic Neoplasms of unspecified nature or uncertain behavior (2 sources) Neoplasm of unspecified behavior of bladder; 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] Onset: 07-12-2022 Episodic Other aftercare (6 sources) Long-term (current) use of other medications; Translations: [Other custodial (current) drug therapy] Onset: 04-07-2013 Resolved: 01-04-2015 01-04-2015 Episodic Other aftercare (2 sources) Other intermediate frame tender (current) drug therapy; Translations: [Other intermediate frame tender (current) drug therapy] Onset: 01-04-2015 01-04-2015 Episodic Other nutritional; endocrine; and metabolic disorders (4 sources) Body mass index (BMI) 29.0-29.9, adult; Translations: [Body mass index (BMI) 29.0-29.9, adult] Onset: 03-29-2013 03-29-2013 Episodic Unclassified (2 sources) Percutaneous transluminal coronary angioplasty ; Translations: [Coronary angioplasty status] Onset: 03-25-2013 03-25-2013 Unclassified (4 sources) Long-term drug therapy; Translations: [Long-term (current) use of other medications] Onset: 04-07-2013 Resolved: 01-04-2015 04-07-2013 Results Test Name Value Interpretation Reference Range Facil ity Vital Signs Date Time Vital Sign Value Performing Clinician Kasey bynum 07-06-2023 12:08-[address] Pressure Cuff Size DR VICTOR M CRUZ DO [facility] 07-06-2023 12:08-[address] VICTOR M CRUZ DO [facility] 07-06-2023 12:08-[address] VICTOR M CRUZ DO [facility] 07-06-2023 12:08-0500 Diastolic Blood Pressure Non-Invasive 79 mm[Hg] DR VICTOR M CRUZ DO [facility] 07-06-2023 12:08-0500 Heart rate 52 /min DR VICTOR M CRUZ DO [facility] 07-06-2023 12:08-0500 Mean blood pressure 92 mm[Hg] DR VICTOR M CRUZ DO [facility] 07-06-2023 12:08-0500 Respiratory rate 18 /min DR VICTOR M CRUZ DO [facility] 07-06-2023 12:08-0500 Systolic Blood Pressure Non-Invasive 124 mm[Hg] DR VICTOR M CRUZ DO [facility] 07-06-2023 10:35-0500 Blood Pressure Cuff Size DR VICTOR M CRUZ DO [facility] 07-06-2023 10:35-[address] VICTOR M CRUZ DO [facility] 07-06-2023 10:35-[address] VICTOR M CRUZ DO [facility] 07-06-2023 10:35-0500 Body temperature 98.24 [degF] DR VICTOR M CRUZ DO [facility] 07-06-2023 10:35-0500 Diastolic Blood Pressure Non-Invasive 86 mm[Hg] DR VICTOR M CRUZ DO [facility] 07-06-2023 10:35-0500 Heart rate 65 /min DR VICTOR M CRUZ DO [facility] 07-06-2023 10:35-0500 Respiratory rate 18 /min DR VICTOR M CRUZ DO [facility] 07-06-2023 10:35-0500 Systolic Blood Pressure Non-Invasive 131 mm[Hg] DR VICTOR M CRUZ DO [facility] 07-12-2022 16:49-0500 Diastolic Blood Pressure Non-Invasive [address] SOLO VILLEGAS MD [facility] 07-12-2022 16:49-0500 Heart rate 57 /min DR SOLO VILLEGAS MD [facility] 07-12-2022 16:49-0500 Respiratory rate 14 /min DR SOLO VILLEGAS MD [facility] 07-12-2022 16:49-0500 Systolic Blood Pressure Non-Invasive [address] SOLO VILLEGAS MD [facility] 07-12-2022 16:28-0500 Diastolic Blood Pressure Non-Invasive [address] SOLO VILLEGAS MD [facility] 07-12-2022 16:28-0500 Heart rate 62 /min DR SOLO VILLEGAS MD [facility] 07-12-2022 16:28-0500 Respiratory rate 14 /min DR SOLO VILLEGAS MD [facility] 07-12-2022 16:28-0500 Systolic Blood Pressure Non-Invasive [address] SOLO VILLEGAS MD [facility] 07-12-2022 16:00-0500 Diastolic Blood Pressure Non-Invasive [address] SOLO VILLEGAS MD [facility] 07-12-2022 16:00-0500 Heart rate 60 /min DR SOLO VILLEGAS MD [facility] 07-12-2022 16:00-0500 Systolic Blood Pressure Non-Invasive [address] SOLO VILLEGAS MD [facility] 07-12-2022 15:17-0500 Body temperature 96.8 [degF] DR SOLO VILLEGAS MD [facility] 07-12-2022 15:10-0500 Respiratory Rate - Anes 4 br/min DR SOLO VILLEGAS MD [facility] 07-12-2022 15:05-0500 Respiratory Rate - Anes 8 br/min DR SOLO VILLEGAS MD [facility] 07-12-2022 15:00-0500 Respiratory Rate - Anes 13 br/min DR SOLO VILLEGAS MD [facility] 07-12-2022 13:30-0500 Body height [address] SOLO VILLEGAS MD [facility] 07-12-2022 13:30-0500 Body temperature 97.7 [degF] DR SOLO VILLEGAS MD [facility] 07-12-2022 13:30-0500 Body weight [address] SOLO VILLEGAS MD [facility] 07-12-2022 13:30-0500 Heart rate 69 /min DR SOLO VILLEGAS MD [facility] 04-06-2022 16:24-0500 Body temperature 97.34 [degF] ANTHONY LEAHY MD [facility] 04-06-2022 16:24-0500 Diastolic Blood Pressure Non-Invasive 82 1 ANTHONY LEAHY MD [address] [place] [address] 04-06-2022 16:24-0500 Heart rate 68 /min ANTHONY LEAHY MD [facility] 04-06-2022 16:24-0500 Reason For Taking VItal Signs ANTHONY LEAHY MD [facility] 04-06-2022 16:24-0500 Respiratory rate 16 /min ANTHONY LEAHY MD [facility] 04-06-2022 16:24-0500 Systolic Blood Pressure Non-Invasive 142 1 ANTHONY LEAHY MD [facility] 04-06-2022 11:34-0500 Body temperature 97.52 [degF] ANTHONY LEAHY MD [facility] 04-06-2022 11:34-0500 Diastolic Blood Pressure Non-Invasive 72 1 ANTHONY LEAHY MD [facility] 04-06-2022 11:34-0500 Heart rate 58 /min ANTHONY LEAHY MD [facility] 04-06-2022 11:34-0500 Reason For Taking VItal Signs ANTHONY LEAHY MD [address] [place] [address] 04-06-2022 11:34-0500 Respiratory rate 15 /min ANTHONY LEAHY MD [address] [place] [address] 04-06-2022 11:34-0500 Systolic Blood Pressure Non-Invasive 118 1 ANTHONY LEAHY MD [address] 04-06-2022 07:24-0500 Body temperature 97.52 [degF] ANTHONY LEAHY MD [address] 04-06-2022 07:24-0500 Diastolic Blood Pressure Non-Invasive 89 1 ANTHONY LEAHY MD [address] 04-06-2022 07:24-0500 Heart rate 50 /min ANTHONY LEAHY MD [address] [place] [address] 04-06-2022 07:24-0500 Respiratory rate 18 /min ANTHOYN LEAHY MD [address] 04-06-2022 07:24-0500 Systolic Blood Pressure Non-Invasive 159 1 ANTHONY LEAHY MD [address] 04-05-2022 22:00-0500 Reason For Taking VItal Signs ANTHONY LEAHY MD [address] [place] [address] 04-05-2022 15:16-0500 Blood Pressure Location ANTHONY LEAHY MD [address] [place] [address] 04-05-2022 15:16-0500 Blood Pressure Method ANTHONY LEAHY MD [address] [place] [address] 04-05-2022 11:09-0500 Heart rate 59 /min ANTHONY LEAHY MD [address] [place] [address] 04-05-2022 01:53-0500 Body height 177.8 cm ANTHONY ELAHY MD [facility] 04-05-2022 01:53-0500 Body weight 100 kg ANTHONY LEAHY MD [facility] 04-05-2022 01:53-0500 Body weight 31.63 kg/m2 ANTHONY LEAHY MD [facility] 04-05-2022 00:53-0500 Diastolic Blood Pressure Non-Invasive 81 1 [facility] 04-05-2022 00:53-0500 Heart rate 62 /min [facility] 04-05-2022 00:53-0500 Respiratory rate 18 /min [facility] 04-05-2022 00:53-0500 Systolic Blood Pressure Non-Invasive 144 1 [facility] 04-04-2022 23:31-0500 Diastolic Blood Pressure Non-Invasive 79 1 [facility] 04-04-2022 23:31-0500 Heart rate 75 /min [facility] 04-04-2022 23:31-0500 Respiratory rate 18 /min [facility] 04-04-2022 23:31-0500 Systolic Blood Pressure Non-Invasive 141 1 [facility] 04-04-2022 21:03-0500 Body temperature 98.06 [degF] [facility] 11-10-2022 21:03-0500 Diastolic Blood Pressure Non-Invasive [address] [facility] DO [facility] 04-04-2022 21:03-0500 Heart rate 72 /min [facility] DO [facility] 04-04-2022 21:03-0500 Respiratory rate 18 /min [facility] 04-04-2022 21:03-0500 Systolic Blood Pressure Non-Invasive 146 1 [facility] 08-02-2021 14:29-0500 Body temperature 97.7 [degF] DR CHRISTOPHER CORRAL MD [facility] 08-02-2021 14:29-0500 Diastolic blood pressure 72 mm[Hg] DR CHRISTOPHER CORRAL MD [facility] 08-02-2021 14:29-0500 Heart rate 78 /min DR CHRISTOPHER CORRAL MD [facility] 08-02-2021 14:29-0500 Mean blood pressure 92 mm[Hg] DR CHRISTOPHER CORRAL MD [facility] 08-02-2021 14:29-0500 Reason For Taking VItal Signs DR CHRISTOPHER CORRAL MD [facility] 08-02-2021 14:29-0500 Respiratory rate 18 /min DR CHRISTOPHER CORRAL MD [facility] 08-02-2021 14:29-0500 Systolic blood pressure 131 mm[Hg] DR CHRISTOPHER CORRAL MD [facility] 08-02-2021 10:30-0500 Body temperature 98.78 [degF] DR CHRISTOPHER CORRAL MD [facility] 08-02-2021 10:30-0500 Diastolic blood pressure 93 mm[Hg] DR CHRISTOPHER CORRAL MD [facility] 08-02-2021 10:30-0500 Heart rate 88 /min DR CHRISTOPHER CORRAL MD [facility] 08-02-2021 10:30-0500 Mean blood pressure 103 mm[Hg] DR CHRISTOPHER CORRAL MD [facility] 08-02-2021 10:30-0500 Reason For Taking VItal Signs DR CHRISTOPHER CORRAL MD [facility] 08-02-2021 10:30-0500 Respiratory rate 18 /min DR CHRISTOPHER CORRAL MD [facility] 08-02-2021 10:30-0500 Systolic blood pressure 124 mm[Hg] DR CHRISTOPHER CORRAL MD [facility] 08-02-2021 07:05-0500 Body temperature 97.7 [degF] DR CHRISTOPHER CORRAL MD [facility] 08-02-2021 07:05-0500 Diastolic blood pressure 78 mm[Hg] DR CHRISTOPHER CORRAL MD [facility] 08-02-2021 07:05-0500 Heart rate 63 /min DR CHRISTOPHER CORRAL MD [facility] 08-02-2021 07:05-0500 Mean blood pressure 95 mm[Hg] DR CHRISTOPHER CORRAL MD [facility] 08-02-2021 07:05-0500 Reason For Taking VItal Signs DR CHRISTOPHER CORRAL MD [facility] 08-02-2021 07:05-0500 Respiratory rate 16 /min DR CHRISTOPHER CORRAL MD [facility] 08-02-2021 07:05-0500 Systolic blood pressure 129 mm[Hg] DR CHRISTOPHER CORRAL MD [facility] 08-01-2021 23:06-0500 Heart rate 88 /min DR CHRISTOPHER CORRAL MD [facility] 07-31-2021 07:38-0500 Heart rate 68 /min DR CHRISTOPHER CORRAL MD [facility] 07-30-2021 07:17-0500 Heart rate 77 /min DR CHRISTOPHER CORRAL MD [facility] 07-30-2021 06:53-0500 Heart rate 64 /min DR CHRISTOPHER CORRAL MD [facility] 07-29-2021 06:10-0500 Heart rate 57 /min DR CHRISTOPHER CORRAL MD [facility] 07-29-2021 04:17-0500 Heart rate 57 /min DR CHRISTOPHER CORRAL MD [facility] 07-29-2021 00:06-0500 Body height 177.[address] CHRISTOPHER CORRAL MD [facility] 07-29-2021 00:06-0500 Body weight [address] CHRISTOPHER CORRAL MD [facility] 07-29-2021 00:06-0500 Body weight 31.63 kg/m2 DR CHRISTOPHER CORRAL MD [facility] 07-28-2021 22:55-0500 Diastolic blood pressure 94 mm[Hg] VEE CHAKRABORTY MD [facility] 07-28-2021 22:55-0500 Heart rate 56 /min VEE CHAKRABORTY MD [facility] 07-28-2021 22:55-0500 Reason For Taking VItal Signs VEE CHAKRABORTY MD [facility] 07-28-2021 22:55-0500 Respiratory rate 18 /min VEE CHAKRABORTY MD [facility] 07-28-2021 22:55-0500 Systolic blood pressure 147 mm[Hg] VEE CHAKRABORTY MD [facility] 07-28-2021 22:42-0500 Diastolic blood pressure 94 mm[Hg] VEE CHAKRABORTY MD [facility] 07-28-2021 22:42-0500 Heart rate 58 /min VEE CHAKRABORTY MD [facility] 07-28-2021 22:42-0500 Systolic blood pressure 160 mm[Hg] VEE CHAKRABORTY MD [facility] 07-28-2021 22:39-0500 Diastolic blood pressure 94 mm[Hg] VEE CHAKRABORTY MD [facility] 07-28-2021 22:39-0500 Heart rate 57 /min VEE CHAKRABORTY MD [facility] 07-28-2021 22:39-0500 Respiratory rate 16 /min VEE CHAKRABORTY MD [facility] 07-28-2021 22:39-0500 Systolic blood pressure 160 mm[Hg] VEE CHAKRABORTY MD [facility] 07-28-2021 22:00-0500 Reason For Taking VItal Signs VEE CHAKRABORTY MD [facility] 07-28-2021 21:06-0500 Heart rate 58 /min VEE CHAKRABORTY MD [facility] 07-28-2021 21:06-0500 Mean blood pressure 122 mm[Hg] VEE CHAKRABORTY MD [facility] 07-28-2021 21:06-0500 Reason For Taking VItal Signs VEE CHAKRABORTY MD [facility] 07-28-2021 20:40-0500 Heart rate 59 /min VEE CHAKRABORTY MD [facility] 07-28-2021 20:40-0500 Mean blood pressure 119 mm[Hg] VEE CHAKRABORTY MD [facility] 07-28-2021 17:19-0500 Body temperature 97.7 [degF] VEE CHAKRABORTY MD [facility] 07-28-2021 17:19-0500 Body weight 101.8 kg VEE CHAKRABORTY MD [facility] 07-28-2021 17:19-0500 Heart rate 69 /min VEE CHAKRABORTY MD [facility] 07-27-2021 18:05-0500 Body temperature 96.8 [degF] NORMA JENKINS MD [facility] 07-27-2021 18:05-0500 Body weight 102 kg NORMA JENKINS MD [facility] 07-27-2021 18:05-0500 Diastolic blood pressure 93 mm[Hg] NORMA JENKINS MD [facility] 07-27-2021 18:05-0500 Heart rate 113 /min NORMA JENKINS MD [facility] 07-27-2021 18:05-0500 Systolic blood pressure 147 mm[Hg] NORMA JENKINS MD [facility] 07-23-2021 18:22-0500 Diastolic blood pressure 100 mm[Hg] VEE CHAKRABORTY MD [facility] 07-23-2021 18:22-0500 Heart rate 68 /min VEE CHAKRABORTY MD [facility] 07-23-2021 18:22-0500 Respiratory rate 16 /min VEE CHAKRABORTY MD [facility] 07-23-2021 18:22-0500 Systolic blood pressure 168 mm[Hg] VEE CHAKRABORTY MD [facility] 07-23-2021 16:52-0500 Body temperature 97.34 [degF] VEE CHAKRABORTY MD [facility] 07-23-2021 16:52-0500 Body weight 102.1 kg VEE CHAKRABORYT MD [facility] 07-23-2021 16:52-0500 Diastolic blood pressure 100 mm[Hg] VEE CHAKRABORTY MD [facility] 07-23-2021 16:52-0500 Heart rate 71 /min VEE CHAKRABORTY MD [facility] 07-23-2021 16:52-0500 Respiratory rate 16 /min VEE CHAKRABORTY MD [facility] 07-23-2021 16:52-0500 Systolic blood pressure 165 mm[Hg] VEE CHAKRABORTY MD [facility] 02-24-2017 08:20-0400 BMI (Body Mass Index) 29.98 kg/m2 Suzi Ste[facility] Work Phone: 02-24-2017 08:20-0400 BP Diastolic 80 mm[Hg] Suzi Comer [facility] Work Phone: 02-24-2017 08:20-0400 BP Systolic 140 mm[Hg] Suzi Comer [facility] Work Phone: 02-24-2017 08:20-0400 Height 180.34 cm Suzi Comer [facility] Work Phone: 02-24-2017 08:20-0400 Pulse (Heart Rate) 72 /min Suzi Comer [facility] Work Phone: 02-24-2017 08:20-0400 Respiratory Rate 18 /min Suzi Comer [facility] Work Phone: 02-24-2017 08:20-0400 Weight 97.52 kg Suzi Comer [facility] Work Phone: 07-15-2016 08:16-0500 BMI (Body Mass Index) 29.84 kg/m2 Emeka Saleem NP [facility] Work Phone: 07-15-2016 08:16-0500 BP Diastolic 80 mm[Hg] Emeka Saleem NP [facility] Work Phone: 07-15-2016 08:16-0500 BP Systolic 144 mm[Hg] Emeka Saleem NP [facility] Work Phone: 07-15-2016 08:16-0500 BSA (Body Surface Area) 2.17 m2 Emeka Saleem BANDAGE WINDING MACHINE OPERATOR [facility] Work Phone: 07-15-2016 08:16-0500 Height 180.34 cm Emeka Saleem BANDAGE WINDING MACHINE OPERATOR [facility] Work Phone: 07-15-2016 08:16-0500 Pulse (Heart Rate) 62 /min Emeka Saleem BANDAGE WINDING MACHINE OPERATOR [facility] Work Phone: 07-15-2016 08:16-0500 Respiratory Rate 16 /min Emeka Saleem BANDAGE WINDING MACHINE OPERATOR [facility] Work Phone: 07-15-2016 08:16-0500 Weight 97.07 kg Emeka Saleem NP [facility] Work Phone: 01-16-2016 13:02-0400 Pulse Oximetry 96 % Emeka Saleem NP [facility] Work Phone: 03-29-2013 10:56-0500 Heart rate 65 /min Harumi DeFinis [facility] Work Phone: 03-29-2013 10:56-0500 Heart rate 392 ms Harumi DeFinis [facility] Work Phone: Encounters Encounter Date Encounter Type Care Provider Facility Start: 07-07-2023 ambulatory RENETTA VILLALOBOS MD Facility :B Start: 07-06-2023 End: 07-06-2023 Emergency department patient visit BRENNA MILLS APRN-RAILROAD INSPECTOR Facility:B Start: 07-06-2023 End: 07-06-2023 Emergency department patient visit DR VICTOR M CRUZ DO [facility] Start: 05-28-2023 End: 05-28-2023 ambulatory ZOIE Medina JEROME Facility:[facility] Start: 02-25-2023 End: 02-26-2023 ambulatory BRENNA MILLS COMPUTER ANALYST SUPERVISOR-RAILROAD INSPECTOR Facility:B Start: 02-25-2023 End: 02-25-2023 Patient encounter procedure BRENNA MILLS COMPUTER ANALYST SUPERVISOR-RAILROAD INSPECTOR [facility] Start: 07-12-2022 End: 07-12-2022 ambulatory BRENNA MILLS COMPUTER ANALYST SUPERVISOR-RAILROAD INSPECTOR Facility:B Start: 07-12-2022 End: 07-12-[address] SOLO VILLEGAS MD [facility] Start: 05-29-2022 End: 05-29-[address] CHRISTOPHER CORRAL MD [facility] Start: 05-21-2022 End: 05-21-[address] GUILLERMO TAYLOR MD [facility] Start: 04-05-2022 End: 04-06-2022 Evaluation and management of inpatient ANTHONY LEAHY MD [facility] Start: 04-04-2022 End: 04-05-2022 Emergency department patient visit VAEDMAR ONEILL [facility] Start: 03-25-2022 End: 05-21-2022 Admission to same day surgery center JAYRO VAZQUEZ PA-C [facility] Start: 02-15-2022 End: 02-15-2022 Patient encounter procedure BRENNA MILLS COMPUTER ANALYST SUPERVISOR-RAILROAD INSPECTOR [facility] Start: 07-28-2021 End: 08-02-2021 Evaluation and management of inpatient DR CHRISTOPHER CORRAL MD [facility] Start: 07-28-2021 End: 07-28-2021 Emergency department patient visit VEE CHAKRABORTY MD [facility] Start: 07-27-2021 End: 07-28-2021 Emergency department patient visit NORMA JENKINS MD [facility] Start: 07-23-2021 End: 07-23-2021 Emergency department patient visit VEE CHAKRABORTY MD [facility] Procedures Date Procedure Procedure Detail Performing Clinician Start: 07-12-2022 Urinary bladder stru cture (body structure) DR SOLO VILLEGAS MD Plan of Treatment Date Care Activity Detail Author Start: 09-15-2017 End: 09-15-2017 Appointment Appointment [facility] Work Phone: Start: 08-06-2017 End: 02-07-2017 *Hepatic Function Panel *Hepatic Function Panel [facility] Work Phone: Start: 08-06-2017 End: 02-07-2017 Lipid 1996 panel *Lipid Profile CC PCP [facility] Work Phone: Start: 08-06-2017 End: 02-07-2017 *Hepatic Function Panel *Hepatic Function Panel [facility] Work Phone: Start: 08-06-2017 End: 02-07-2017 Lipid panel [AGGREGATE] *Lipid Profile CC PCP [facility] Work Phone: Start: 02-24-2017 End: 02-24-2017 IAN SOSA [facility] Work Phone: Start: 02-24-2017 End: 02-24-2017 Follow Up Appt 6 months Follow Up Appt 6 months [facility] Work Phone: Start: 02-24-2017 End: 02-24-2017 Appointment Appointment [facility] Work Phone: Start: 02-24-2017 End: 02-24-2017 DJN IAN [facility] Work Phone: Start: 02-24-2017 End: 02-24-2017 Follow Up Appt 6 months Follow Up Appt 6 months [facility] Work Phone: Start: 11-12-2016 End: 02-07-2017 *Hepatic Function Panel *Hepatic Function Panel [facility] Work Phone: Start: 11-12-2016 End: 02-07-2017 Lipid 1996 panel *Lipid Profile CC PCP [facility] Work Phone: Start: 11-12-2016 End: 02-07-2017 *Hepatic Function Panel *Hepatic Function Panel [facility] Work Phone: Start: 11-12-2016 End: 02-07-2017 Lipid panel [AGGREGATE] *Lipid Profile CC PCP [facility] Work Phone: Start: 07-29-2016 End: 02-13-2017 DJN SHAVONNEN [facility] Work Phone: Start: 07-29-2016 End: 02-13-2017 Follow Up Appt 6 months Follow Up Appt 6 months [facility] Work Phone: Start: 07-29-2016 End: 02-13-2017 DJN DJN [facility] Work Phone: Start: 07-29-2016 End: 02-13-2017 Follow Up Appt 6 months Follow Up Appt 6 months [facility] Work Phone: Start: 07-15-2016 End: 07-15-2016 Oncology Referral Oncology Referral Lalit Hernandez MD, [facility], [address], [place], [address] [facility] Work Phone: Start: 07-15-2016 End: 07-23-2016 Oncology Referral [facility] Work Phone: Start: 04-25-2016 End: 05-14-2016 Lipid 1996 panel *Lipid Profile CC PCP [facility] Work Phone: Start: 04-25-2016 End: 05-14-2016 Lipid panel [AGGREGATE] *Lipid Profile CC PCP [place] [facility] Work Phone: Start: 01-16-2016 End: 01-16-2016 IAN SOSA [facility] Work Phone: Start: 01-16-2016 End: 01-16-2016 Echocardiography Echocardiogram (complete) [facility] Work Phone: Start: 01-16-2016 End: 01-16-2016 Follow Up Appt 6 months Follow Up Appt 6 months [facility] Work Phone: Start: 01-16-2016 End: 01-16-2016 Oncology Referral Oncology Referral Raven Hannah MD, [facility], [address], [place], [address] [facility] Work Phone: Start: 01-16-2016 End: 01-16-2016 Stress Echocardiogram (treadmill) Stress Echocardiogram (treadmill) [facility] Phone: Start: 01-16-2016 End: 01-16-2016 IAN SOSA [facility] Work Phone: Start: 01-16-2016 End: 01-16-2016 Echocardiography Echocardiogram (complete) [facility] Work Phone: Start: 01-16-2016 End: 01-16-2016 Follow Up Appt 6 months Follow Up Appt 6 months [facility] Work Phone: Start: 01-16-2016 End: 01-16-2016 Oncology Referral Oncology Referral Raven Hannah MD, [facility], [address], [place], [address] [facility] Work Phone: Start: 01-16-2016 End: 01-16-2016 Stress Echocardiogram (treadmill) Stress Echocardiogram (treadmill) [facility] Phone: Start: 12-05-2015 End: 12-05-2015 *Hepatic Function Panel *Hepatic Function Panel [facility] [facility] Work Phone: Start: 12-05-2015 End: 12-05-2015 Lipid 1996 panel *Lipid Profile CC PCP [facility] [facility] Work Phone: Start: 12-05-2015 End: 12-05-2015 *Hepatic Function Panel *Hepatic Function Panel [facility] Work Phone: Start: 12-05-2015 End: 12-05-2015 Lipid panel [AGGREGATE] *Lipid Profile CC PCP [facility] Work Phone: Start: 01-17-2015 End: 01-17-2015 SHAVONNEN DJN [facility] [facility] Work Phone: Start: 01-17-2015 End: 01-17-2015 Follow Up Appt 1 year Follow Up Appt 1 year [facility] Work Phone: Start: 01-17-2015 End: 01-17-2015 DJN DJN [facility] Work Phone: Start: 01-17-2015 End: 01-17-2015 Follow Up Appt 1 year Follow Up Appt 1 year [facility] Work Phone: Start: 12-30-2014 End: 01-04-2015 *Hepatic Function Panel *Hepatic Function Panel [facility] Work Phone: Start: 12-30-2014 End: 01-04-2015 Lipid 1996 panel *Lipid Profile CC PCP [facility] Work Phone: Start: 12-30-2014 End: 01-04-2015 *Hepatic Function Panel *Hepatic Function Panel [place] [facility] Work Phone: Start: 12-30-2014 End: 01-04-2015 Lipid panel [AGGREGATE] *Lipid Profile CC PCP [facility] [facility] Work Phone: Start: 01-17-2014 End: 01-17-2014 IAN MARVINN [facility] Work Phone: Start: 01-17-2014 End: 01-17-2014 Follow Up Appt 1 year Follow Up Appt 1 year [facility] Work Phone: Start: 01-17-2014 End: 01-17-2014 SHAVONNEN SHAVONNEN [facility] [facility] Work Phone: Start: 01-17-2014 End: 01-17-2014 Follow Up Appt 1 year Follow Up Appt 1 year [facility] Work Phone: Start: 09-23-2013 End: 01-17-2014 *Hepatic Function Panel *Hepatic Function Panel [place] [facility] Work Phone: Start: 09-23-2013 End: 01-17-2014 Lipid 1996 panel *Lipid Profile CC PCP [facility] Work Phone: Start: 09-23-2013 End: 01-17-2014 *Hepatic Function Panel *Hepatic Function Panel [place] [facility] Work Phone: Start: 09-23-2013 End: 01-17-2014 Lipid panel [AGGREGATE] *Lipid Profile CC PCP [facility] Work Phone: Start: 03-29-2013 End: 03-29-2013 IAN SOSA [facility] [facility] Work Phone: Start: 03-29-2013 End: 03-29-2013 Ecg routine ecg w/least 12 lds w/i&r EKG (In office) [facility] [facility] Work Phone: Start: 03-29-2013 End: 03-29-2013 Follow Up Appt 1 year Follow Up Appt 1 year [facility] Work Phone: Start: 03-29-2013 End: 04-01-2013 Lipid 1996 panel *Lipid Profile CC PCP [facility] Work Phone: Start: 03-29-2013 End: 03-29-2013 IAN MARVINN [facility] Work Phone: Start: 03-29-2013 End: 03-29-2013 Electrocardiogram, complete EKG (In office) [facility] Work Phone: Start: 03-29-2013 End: 03-29-2013 Follow Up Appt 1 year Follow Up Appt 1 year [facility] Work Phone: Start: 03-29-2013 End: 04-01-2013 Lipid panel [AGGREGATE] *Lipid Profile CC PCP [facility] [facility] Work Phone: [facility] Work Phone: Immunizations Immunization Date Immunization Notes Care Provider Francisco garcia 02-25-2023 influenza, high dose seasonal, preservative-free; Translations: [Fluad Quadrivalent PF ] BRENNA MILLS COMPUTER ANALYST SUPERVISOR-RAILROAD INSPECTOR [facility] 04-30-2022 influenza, injectabl e, quadrivalent, contains preservative; Translations: [Fluarix PF Quadrivalent ] JAYRO VAZQUEZ PA-C [facility] 03-26-2021 influenza, high dose seasonal, preservative-free; Translations: [Fluad Quadrivalent PF ] VEE CHAKRABORTY MD [facility] 09-02-2020 SARS-CoV-2 mRNA (tozinameran) vaccine VEE CHAKRABORTY MD [facility] 08-07-2020 SARS-CoV-2 mRNA (tozinameran) vaccine VEE CHAKRABORTY MD [facility] 03-24-2020 zoster vaccine recombinant VEE CHAKRABORTY MD [facility] Payers Date Payer Category Payer Private Health Insurance [facility] [id number] 2011 Medicare [id number] 1945 Unknown [id number] 1945 Unknown [id number] 1945 Unknown [id number] 1945 Unknown [id number] Social History Date Type Detail Facility Start: 03-23-2019 Never smoked t obacco (finding) [facility] Sex Assigned At Male [facility] Functional Status Date Assessment Result Facility 07-06-2023 Functional Status Independent [facility] 07-06-2023 Functional Status Standard Safet y ID band on, Allergy Band on [facility] 07-12-2022 Functional Status Up to chair [facility] 07-12-2022 Functional Status [facility] 07-12-2022 Functional Status Maintained, More than 8 hours [facility] 04-06-2022 Functional Status Identified as high risk, Fall ID band on, Room located near nursing station, Bed alert on, Door open, Bathroom light on, Non-Slip footwear, Reoriented, toileting offered, supervised while toileting, Room check performed, High risk door magnet present, Bed alert pad on, Alarm activated & functional [facility] 04-06-2022 Functional Status [facility] 04-06-2022 Functional Status [facility] 04-06-2022 Functional Status [facility] 04-05-2022 Functional Status Single level home [facility] 04-05-2022 Functional Status [facility] 04-04-2022 Functional Status Standard Safet y ID band on, Call device within reach, Bed in low position [facility] 03-25-2022 Functional Status Home Living Ad ditional Information OBJECTIVE Vitals: BP 104/65 Gait: amb with FWW antalgic gait Transfers: marked use of UEs with guarded, antalgic mobility, use of UEs to assist LLE for supine <-> sit transfers Sensation: no assymmetries or abnormaltiies reported Reflexes: NT Edema: L 45cm, R 41.5cm, no calf tenderness. pt entered clinic with no martha hose on AROM: WFL - as expected s/p MORALES [facility] Mental Status Date Assessment Result Facility 07-06-2023 Mental Status Orientation Oriented x 4 [facility] 07-06-2023 Mental Status [facility] 07-12-2022 Mental Status Oriented x 4 [facility] 04-06-2022 Mental Status Orientation Oriented x 4 [facility] 04-05-2022 Mental Status [facility] 04-04-2022 Mental Status Orientation Oriented x 4 [facility] Clinical Notes 07-23-2021 to 07-06-2023 Note Date & Type Note Facility 07-06-2023 Hospital Discharg e instructions Patient Education 07/06/2023 12:14:58 Near Syncope, Unknown Near-Fainting with Uncertain Cause Fainting (syncope) is a temporary loss of consciousness (passing out). This happens when blood flow to the brain is reduced. Near-fainting (near-syncope) is like fainting, but you do not fully pass out. Instead, you feel like you are going to pass out, but do not actually lose consciousness. Signs and symptoms The following are symptoms of near-fainting: Feeling lightheaded or like you are going to faint Weak pulse Nausea Sweating Blurred vision or feeling like your vision is fading Palpitations Chest pain Hard time breathing Feeling cool and clammy Causes This happens when your blood pressure suddenly drops, and not enough blood flows to your brain. Common minor causes include: Sudden emotional stress such as fear, pain, panic, or the sight of blood Straining or overexertion, such as straining while using the toilet, coughing, or sneezing Standing up too quickly, or standing up for too long a time More serious causes include: Very slow, fast, or irregular heart rate (arrhythmia) Dehydration Significant blood loss Medicines, or a recent change in medicines. Medicines that can cause fainting include blood pressure or heart medicines. Heart attack Heart valve problems Remember, even minor causes can become serious if you fall and injure yourself, or are driving. You may need more tests. It is very important that you follow up with your doctor as advised. Home care The following guidelines will help you care for yourself at home: Rest today. Resume your normal activities as soon as you are feeling back to normal. If you become lightheaded or dizzy, lie down right away or sit with your head between your knees. Drink plenty of fluids and don't skip meals. Because the exact cause of your near fainting spell is not known, another spell could occur without warning. To stay safe, do not drive a car or use dangerous equipment. Do not take a bath alone. Use a shower instead. Do not swim alone. You can resume these activities when your healthcare provider says that you are no longer in danger of having a near-fainting spell. Follow-up care Follow up with your healthcare provider, or as advised. Call 911 Call 911 if any of the following occur: Another near-fainting or full fainting spell occurs, and it is not explained by the common causes listed above Chest, arm, neck, jaw, back or abdominal pain Shortness of breath Weakness, tingling, or numbness in one side of the face, or in one arm or leg Slurred speech, confusion, trouble walking or seeing Seizure When to seek medical advice Call your healthcare provider right away if any of these occur: Changes in your medicines Occasional mild lightheadedness, especially when standing up too quickly or straining [id number] [employer]. [address] [place] [address], [place] [address]. All rights reserved. This information is not intended as a substitute for professional medical care. Always follow your healthcare professional's instructions. Follow Up Care 07/06/2023 09:55:42 With:BRENNA MILLS APRN-RAILROAD INSPECTOR Address: [address] [facility] [place] [address]- [phone] When:2-4 days Comments:Call cardiology on Friday [facility] 07-06-2023 Note Discharge Instructions Thank you for allowing [facility] to assist you with your healthcare needs. The following is important discharge information regarding your hospital visit. Diagnosis from Today's Visit Syncope What to Do Next Instructions from Your Care Team No qualifying data available. Post Acute Orders No qualifying data available. You Need to Schedule the Following Appointments Follow Up with BRENNA MILLS When Within 2-4 days Why: Call cardiology on Friday Where: [address] [facility] [place], [place] [phone]- [phone] Allergies Biofreeze Lipitor (Joint pain) Tagamet (Stomach ache) Zetia (Numbness of finger) fenofibrate (Joint pain) hydrALAZINE (severe allergic reaction) sulfa drugs (Swelling, Hives) Medications Please ask your primary doctor or pharmacist before taking any other medication not listed, including over the counter drugs, herbal medications, vitamins and or supplements as they may interact with your home medications. What How Much When Why Instructions Last Dose Unchanged acetaminophen (acetaminophen 500 mg oral capsule) 1 cap by mouth Every 6 hours Unchanged acetaminophen-diphenhydramine (Tylenol PM Extra Strength oral tablet) 1 tab(s) by mouth Daily at bedtime as needed for as needed for sleep Unchanged calcium carbonate (Tums Ultra 1000 mg oral tablet, chewable) 1 tab(s) Chewed Two (2) times a day as needed for as needed for dyspepsia Unchanged doxazosin (doxazosin 4 mg oral tablet) 1 tab(s) TAKE 1 TABLET BY MOUTH EVERY DAY - OKAY TO CRUSH TABLET IF NEEDED Unchanged lansoprazole (lansoprazole 30 mg oral delayed release capsule) 1 cap by mouth Once a day Unchanged lidocaine topical (Aspercreme with Lidocaine 4% topical cream) Topical Three (3) times a day Unchanged meloxicam (meloxicam 15 mg oral tablet) 1 tab(s) by mouth Once a day Unchanged mometasone topical (mometasone 0.1% topical ointment) See instructions apply daily to affected area Unchanged topiramate (topiramate 25 mg oral tablet) 1 tab(s) by mouth Once a day Unchanged valsartan (valsartan 40 mg oral tablet) 0.5 tab by mouth Once a day HTN (hypertension) Please take this list to your next doctor s visit. Bring all medications you take, including over the counter medications, herbals and other supplements with you to your doctor s visit. Patients and families are reminded to discard old lists and to update any records with all medication providers or retail pharmacies. Education Materials Near-Fainting with Uncertain Cause Fainting (syncope) is a temporary loss of consciousness (passing out). This happens when blood flow to the brain is reduced. Near-fainting (near-syncope) is like fainting, but you do not fully pass out. Instead, you feel like you are going to pass out, but do not actually lose consciousness. Signs and symptoms The following are symptoms of near-fainting: Feeling lightheaded or like you are going to faint Weak pulse Nausea Sweating Blurred vision or feeling like your vision is fading Palpitations Chest pain Hard time breathing Feeling cool and clammy Causes This happens when your blood pressure suddenly drops, and not enough blood flows to your brain. Common minor causes include: Sudden emotional stress such as fear, pain, panic, or the sight of blood Straining or overexertion, such as straining while using the toilet, coughing, or sneezing Standing up too quickly, or standing up for too long a time More serious causes include: Very slow, fast, or irregular heart rate (arrhythmia) Dehydration Significant blood loss Medicines, or a recent change in medicines. Medicines that can cause fainting include blood pressure or heart medicines. Heart attack Heart valve problems Remember, even minor causes can become serious if you fall and injure yourself, or are driving. You may need more tests. It is very important that you follow up with your doctor as advised. Home care The following guidelines will help you care for yourself at home: Rest today. Resume your normal activities as soon as you are feeling back to normal. If you become lightheaded or dizzy, lie down right away or sit with your head between your knees. Drink plenty of fluids and don't skip meals. Because the exact cause of your near fainting spell is not known, another spell could occur without warning. To stay safe, do not drive a car or use dangerous equipment. Do not take a bath alone. Use a shower instead. Do not swim alone. You can resume these activities when your healthcare provider says that you are no longer in danger of having a near-fainting spell. Follow-up care Follow up with your healthcare provider, or as advised. Call 911 Call 911 if any of the following occur: Another near-fainting or full fainting spell occurs, and it is not explained by the common causes listed above Chest, arm, neck, jaw, back or abdominal pain Shortness of breath Weakness, tingling, or numbness in one side of the face, or in one arm or leg Slurred speech, confusion, trouble walking or seeing Seizure When to seek medical advice Call your healthcare provider right away if any of these occur: Changes in your medicines Occasional mild lightheadedness, especially when standing up too quickly or straining [phone] [employer]. [address] [place] [address]. All rights reserved. This information is not intended as a substitute for professional medical care. Always follow your healthcare professional's instructions. Additional Information VACCINATE! IT SAVES LIVES! Members of the community who have not yet received the COVID-19 vaccine and would like to receive it can visit one of [facility] vaccine clinics. There are many vaccine clinic locations within the [facility]. For locations and available times, please visit [email or web address] [email or web address] It is important to note that some COVID mobile vaccine clinics are held outdoors and may be canceled in rainy or stormy conditions. To learn more about pediatric vaccinations (ages 5-11), we invite you to visit the [facility] webpage. [email or web address].[email or web address].org/p ages/7092-Fbxtm-Yvsrelbjmgw-Freq lmntfu-Uuiom-Inaolqmco.html To learn more about the COVID-19 vaccine, we invite you to visit the CDC website for a list of frequently asked questions. https://www.cdc.gov/coronavirus/ 2019-ncov/vaccines/faq.html [facility] Access Instructions: Stay connected with your healthcare team and access your personal medical information anytime with the [facility] Patient Portal. If you would like a full copy of your medical records please contact the [facility] Medical Records Department Friday through Friday between 8a.m. and 4:30p.m. Please follow the directions below to access the portal: 1.Access the email account you provided upon registration to the hospital.2.Look for an invitation email from [facility].3.Open the email and access the invitation link: Accept Invitation to [facility].Fill in the required calixto to create your account. Sign into [email or web address] with your username and password that you created in the above steps to stay up to date. You can then view a summary of results, a summary of your visits, and the ability to download your summaries to your computer or send the information securely to a physician. Remember that your healthcare information is confidential, so carefully consider who you will allow to register on the [facility] Patient Portal for access to your information. You can also access the [facility] Patient Portal on the [employer] areli. Simply click on Health Records under Health Data and then click on the [facility] logo. HOW TO SAFELY DISPOSE OF PRESCRIPTION MEDICATIONS Please use one of the following methods to safely dispose of your unused medications. 1.Use a drug disposal kit: the drug disposal pouch allows you to safely discard your old and unused drugs. Ask your nurse to give you one when you are discharged.2.Visit a local take-back location: Many local pharmacies and police departments have programs that collect old and unwanted prescription drugs. Call your local pharmacy or go to http://[employer]/3B0Rg8a to find one close to you.3.Make use of household items: Use cat litter or old coffee grounds to dispose medications if other options are not available. Mix your drugs with these household products, seal them in an airtight container and throw it into the garbage. Call [facility]: [phone] to be sure your drugs can be disposed of in this way. Some medicines may require a different approach.4.Never flush your medications down the toilet. IF YOU HAVE BEEN PRESCRIBED AN OPIOIDS FOR PAIN If you have been prescribed an opioid (such as hydrocodone, oxycodone or morphine), it is critical to understand the possible side effects and risks of opioid pain medications. Even when taken as directed, opioids can have several side effects including: Tolerance, meaning you might need to take more of a medication for the same pain relief. Nausea, vomiting and/or constipation. Sleepiness, dizziness, dry mouth, confusion, depression or itching. Physical dependence, meaning you have withdrawal symptoms when a medication is stopped ? this can develop within a few days. KNOW YOUR RESPONSIBILITIES It is important to know exactly how much and how often to take the opioid pain medications you are prescribed. Never take opioids in higher amounts or more often than prescribed. Do not combine opioids with alcohol or other drugs that cause drowsiness, such as benzodiazepines, also known as benzos, including diazepam and alprazolam, muscle relaxants or sleep aids. Never sell or share prescription opioids. This is illegal. Store opioids in a secure place and out of reach of others (including children, family, friends and visitors). The last page(s) of this document has been signed and retained as a CHART COPY Signatures Patient Education Materials Near Syncope, Unknown Medication Leaflets My discharge plan and instructions have been reviewed and explained to me and I,PATY SHEIKH understand my current condition and have read and understand these discharge instructions. I have received a written copy of the plan/instructions. If I have questions, I am aware that I should contact my doctor. Patient/Corporate Quality Manager Signature: Date/Time: Relationship to Patient: Witness Name/Signature: Date/Time: [facility] 07-06-2023 Note ORIGINAL EXAMINATION: CT HEAD TECHNIQUE: Axial CT images from skull base to vertex without IV contrast. This exam was performed according to our departmental dose optimization program, and includes the following measures where applicable: automated exposure control, adjustment of the mAs and/or kVp according to patient size and/or exam, and an iterative reconstruction algorithm. COMPARISON: CT head 08/23/2021, MRI brain 07/30/2021 HISTORY: ORDERING SYSTEM PROVIDED HISTORY: Reason for Exam: syncope FINDINGS: Parenchyma: No acute intracranial hemorrhage, midline shift, mass effect or acute ischemic infarct is demonstrated. The maria-white matter junctions are preserved. No space occupying intra-axial masses or extra-axial fluid collections are seen. Parenchymal volume loss most pronounced in the bilateral temporal and parietal lobes is noted. Scattered areas of decreased attenuation are identified in the subcortical, periventricular, and deep white matter statistically reflect mild chronic microvascular white matter ischemic disease. Ventricles: No evidence of hydrocephalus or ventricular effacement. Proportionally prominent ventricular to sulcal size in the basis of parenchymal volume loss. Vessels: Atherosclerotic calcifications of the bilateral distal vertebral and internal carotid siphons. Orbits: Unremarkable. Calvarium: Unremarkable. Paranasal sinuses: Left maxillary sinus retention cysts. Scalp: Small left frontal scalp hematoma without soft tissue gas or radiopaque foreign body (axial image 27 series 2). Mastoid sinuses: Clear. IMPRESSION: No acute intracranial pathology. Small left frontal scalp hematoma. Parenchymal volume loss and chronic microvascular white matter ischemic disease. Interpreted by: Zoie Walker MD Preliminary Report By: Zoie Walker MD Electronically signed By Zoie Walker MD Dictated Date: 07/06/2023 11:40:52 AM Prelim Date: 07/06/2023 11:44:25 AM Sign Date: 07/06/2023 11:44:25 AM Ordering Provider: VICTOR M CRUZ [facility] 07-06-2023 Note Sinus rhythm Prolonged VT interval Borderline left axis deviation Baseline wander in lead(s) V4,V5,V6 Electronic Signature: VICTOR M CRUZ DO 07/06/2023 10:46:37 [facility] 05-28-2023 Note HNO ID: [id number] Author: Kayleigh Bullock APRN.RAILROAD INSPECTOR Service: ? Author Type: Nurse Practitioner Type: Progress Notes Filed: 05/28/2023 1:19 PM Note Text: Subjective Sinus Problem Associated symptoms include congestion, coughing and headaches. Pertinent negatives include no chills, fever or sore throat. Paty Sheikh is a 77 year old male who presents with cough, headache, sinus congestion and pressure. He has not been sleeping well and has a decreased appetite. His grandchildren were sick recently. He has been taking Excedrin at home. Review of Systems Constitutional: Negative for chills and fever. HENT: Positive for congestion. Negative for ear pain and sore throat. Respiratory: Positive for cough. Cardiovascular: Negative. Neurological: Positive for headaches. BP 118/70 Pulse 80 Temp 36.7 ?C (98 ?F) Resp 16 Wt 97.1 kg (214 lb) SpO2 96% BMI 30.71 kg/m? PAST MEDICAL HISTORY Diagnosis Date Benign neoplasm of colon Diverticulosis of colon (without mention of hemorrhage) Family history of malignant neoplasm of gastrointestinal tract Gastritis GERD (gastroesophageal reflux disease) Heart attack (HCC) 12/2010 Hiatal hernia Non-Hodgkin's lymphoma (HCC) 1995 Personal history of colonic polyps PMH - PAST MEDICAL HISTORY OF 2001 TIA PMH - PAST MEDICAL HISTORY OF arthritis in the right side of neck PMH - PAST MEDICAL HISTORY OF headaches PAST SURGICAL HISTORY Procedure Laterality Date COLONOSCOP W/ OR W/O [facility] SPEC 12/17/04 Colonoscopy COLONOSCOP W/ OR W/O [facility] SPE[facility] 08/09/17 Colonoscopy COLONOSCOPY W/BX 01/09/10 EGD W/O OR W/BRUSH/WASH 12/17/04 EGD EGD W/O OR W/BRUSH/WASH 08/10/2018 EGD F US CARPEL TUNNEL INJECTION Left 2016 PAST SURGICAL HISTORY OF 1995 lymphode from right groin area PAST SURGICAL HISTORY OF 2002 lymphnode from left groin area PAST SURGICAL HISTORY OF 12/25/10 stent placed in heart ALLERGIES Aspirin, Biofreeze [Camphor-Menthol], Fenofibrate, Lipitor [Atorvastatin Calcium], Plavix [Clopidogrel Bisulfate], Sulfa (Sulfonamide Antibiotics), Tagamet [Cimetidine], and Zetia [Ezetimibe] MEDICATIONS doxazosin (CARDURA) 4 mg tablet 4 mg. topiramate (TOPAMAX) 25 mg tablet Take 25 mg by mouth daily at bedtime. acetaminophen (TYLENOL ARTHRITIS PAIN) 650 mg CR tablet 650 mg. meloxicam (MOBIC) 15 mg tablet Take 1 tablet by mouth every afternoon. Fgyhgei-Jccyfmiyqodzj-Pxonnjta (EXCEDRIN) 250-250-65 mg per tablet Take 1 tablet by mouth every 6 hours as needed. lansoprazole (PREVACID) 30 mg capsule Take 30 mg by mouth once daily. calcium Carbonate 300 mg, 750mg, (TUMS EXTRA STRENGTH SMOOTHIES) 300 mg (750 mg) chewable tablet Take 1 tablet by mouth as needed. acetaminophen(TYLENOL EXTRA STRENGTH 500 MG TAB) takes 1 to 2 per week as needed valsartan (DIOVAN) 40 mg tablet Take 0.5 tablets by mouth every afternoon. (Patient not taking: Reported on 05/28/2023) lidocaine (ASPERCREME, LIDOCAINE,) 4 % patch Apply as directed once daily. menthol (PADMA COOL THERAPY TOPICAL) Apply to affected area. Cholecalciferol, Vitamin D3, (VITAMIN D-3) 1,000 unit chew Take by mouth once daily. (Patient not taking: Reported on 05/28/2023) multivit with min-folic acid (ADULT MULTIVITAMIN EXTRA VITD3) 200 mcg chew Take by mouth. (Patient not taking: Reported on 05/28/2023) Aspirin 81 mg tab Take 162 mg by mouth twice daily. (Patient not taking: Reported on 05/28/2023) MOMETASONE 0.1 % OINTMENT uses once a week in both ears (Patient not taking: Reported on 05/28/2023) FAMILY HISTORY Problem Relation Age of Onset Colon Cancer Mother 60 of metastatic disease to liver Heart Father Colon Cancer Brother allergies, high choles,stomach ulcers Breast Cancer Sister high BP/ Diagnosis of breast cancer is uncertain Hypertension Sister high choles Social History Tobacco Use Smoking status: Never Smokeless tobacco: Never Substance Use Topics Alcohol use: No Objective Physical Exam Vitals and nursing note reviewed. Constitutional: Appearance: Normal appearance. HENT: Right Ear: Tympanic membrane, ear canal and external ear normal. Left Ear: Tympanic membrane, ear canal and external ear normal. Nose: Nose normal. Mouth/Throat: Mouth: Mucous membranes are moist. Pharynx: Oropharynx is clear. Uvula midline. No oropharyngeal exudate or posterior oropharyngeal erythema. Cardiovascular: Rate and Rhythm: Normal rate and regular rhythm. Heart sounds: Normal heart sounds. Pulmonary: Effort: Pulmonary effort is normal. No respiratory distress. Breath sounds: Normal breath sounds. No wheezing or rales. Musculoskeletal: Cervical back: Neck supple. Lymphadenopathy: Cervical: No cervical adenopathy. Skin: General: Skin is warm and dry. Findings: No erythema or rash. Neurological: Mental Status: He is alert. ASSESSMENT/PLAN: 1. Viral URI with cough - ICD9: 465.9, ICD10: J06.9 - Discussed viral etiolog (more content not included)... [facility] 07-12-2022 Hospital Discharg e instructions Patient Education 07/12/2022 16:37:05 General Anesthesia, Adult, Care After General Anesthesia, Adult, Care After This sheet gives you information about how to care for yourself after your procedure. Your health care provider may also give you more specific instructions. If you have problems or questions, contact your health care provider. What can I expect after the procedure? After the procedure, the following side effects are common: Pain or discomfort at the IV site. Nausea. Vomiting. Sore throat. Trouble concentrating. Feeling cold or chills. Weak or tired. Sleepiness and fatigue. Soreness and body aches. These side effects can affect parts of the body that were not involved in surgery. Follow these instructions at home: For at least 24 hours after the procedure: Have a responsible adult stay with you. It is important to have someone help care for you until you are awake and alert. Rest as needed. Do not: ?Participate in activities in which you could fall or become injured. ?Drive. ?Use heavy machinery. ?Drink alcohol. ?Take sleeping pills or medicines that cause drowsiness. ?Make important decisions or sign legal documents. ?Take care of children on your own. Eating and drinking Follow any instructions from your health care provider about eating or drinking restrictions. When you feel hungry, start by eating small amounts of foods that are soft and easy to digest (bland), such as toast. Gradually return to your regular diet. Drink enough fluid to keep your urine pale yellow. If you vomit, rehydrate by drinking water, juice, or clear broth. General instructions If you have sleep apnea, surgery and certain medicines can increase your risk for breathing problems. Follow instructions from your health care provider about wearing your sleep device: ?Anytime you are sleeping, including during daytime naps. ?While taking prescription pain medicines, sleeping medicines, or medicines that make you drowsy. Return to your normal activities as told by your health care provider. Ask your health care provider what activities are safe for you. Take bqsr-fnl-kwgqxkh and prescription medicines only as told by your health care provider. If you smoke, do not smoke without supervision. Keep all follow-up visits as told by your health care provider. This is important. Contact a health care provider if: You have nausea or vomiting that does not get better with medicine. You cannot eat or drink without vomiting. You have pain that does not get better with medicine. You are unable to pass urine. You develop a skin rash. You have a fever. You have redness around your IV site that gets worse. Get help right away if: You have difficulty breathing. You have chest pain. You have blood in your urine or stool, or you vomit blood. Summary After the procedure, it is common to have a sore throat or nausea. It is also common to feel tired. Have a responsible adult stay with you for the first 24 hours after general anesthesia. It is important to have someone help care for you until you are awake and alert. When you feel hungry, start by eating small amounts of foods that are soft and easy to digest (bland), such as toast. Gradually return to your regular diet. Drink enough fluid to keep your urine pale yellow. Return to your normal activities as told by your health care provider. Ask your health care provider what activities are safe for you. This information is not intended to replace advice given to you by your health care provider. Make sure you discuss any questions you have with your health care provider. Document Released: 08/18/2001 Document Revised: 05/15/2018 Document Reviewed: 12/26/2017 [employer] Patient Education 2020 [employer]. 07/12/2022 16:36:52 [facility] Transurethral Resection of Bladder Tumor (02/2022)(CUSTOM) TRANSURETHRAL RESECTION OF BLADDER TUMOR TRANSURETHRAL RESECTION OF BLADDER TUMOR (TURBT): A small scope will be inserted into the bladder. The bladder tumor will be removed and sent to pathology. There are no incisions, the surgery is performed through the bladder. SURGICAL TREATMENT: Surgery: Outpatient (you will be discharged home after surgery. Occasionally you may need to stay overnight)- surgery length of time approximately 60 minutes, no surgical incisions (surgery is done within the bladder with a scope). You may have Mcpherson catheter initially after surgery but generally you with be discharged without a Mcpherson catheter. Occasionally, you may be discharged home with a Mcpherson catheter. May have chemotherapy medication instilled into your bladder to prevent the cancer from coming back. The chemotherapy is generally well tolerated and does not cause your hair to fall out. Surgical prep: Nothing to eat or drink after midnight (night before surgery) Surgery will call the day before to go over arrival time, surgery time, restrictions, and medications. No bowel prep. Medications to hold: Blood thinners, Aspirin, Vitamins, and supplements (unless instructed otherwise). POST OPERATIVE CARE: No surgical dressing. May be discharged with indwelling mcpherson catheter for a couple days. Office to call with follow up to remove catheter; this will be an die maker trim appointment. Monitor urine color for excessive bleeding and/or clots. Urine may be pink tinged. Keep insertion site of catheter clean. You will use a leg bad (smaller bag) during the day and a night bag (large bag) for nighttime. Remember to keep bag lower than the bladder. Empty when - full. Keep catheter secure in place to prevent tension. ACTIVITY: No lifting more than 10-15 pounds for 2 weeks. No work typically for 2-3 days, depending on occupation. May resume driving 2-3 days if not on narcotics. May ride in a car. May shower, even with catheter in. Medications: May be discharged with pain medication and/or antibiotics. What to expect: You may see blood in urine. Like clear to light pink is normal. This can be experienced with or without a catheter in place. When to call office: Temperature of 101 F or higher If urine in mcpherson catheter bag is medrano red/dark red urine with clots. Urine is not draining into bag. Clear to pink urine ok. When catheter is removed in office, please push fluids once removed. If not voided or having trouble voiding by 1-2pm please call the office. The office may bring you back in to scan your bladder to make sure you are emptying properly. If not catheter: Unable to urinate or trouble urinating or pain with urination. FOLLOW UP: Office will call to schedule post-operative appointment. Follow Up Care 07/05/2022 10:42:31 With:SOLO VILLEGAS MD Address: [address] [place] [id number]- When: Unknown [facility] 07-12-2022 Summary of episod e note Discharge Instructions Thank you for allowing [facility] to assist you with your healthcare needs. The following is important discharge information regarding your hospital visit. Your Care Team BRENNA MILLS APRN-RAILROAD INSPECTOR DR. VILLEGAS What to do next Instructions From Your Doctor Status post resection of large bladder tumor, Push lots of fluids, avoid heavy activity, avoid any strenuous activity, no lifting over 10 pounds, okay to shower, okay to bathe, no driving till pain-free. Call my office for an appointment [phone]. Okay to have a little bit of blood in the urine just push fluids avoid any blood thinners Prescription was given for an antibiotic to prevent against infection Prescription was given for ibuprofen for pain control can also take Tylenol with this. If the patient has a lot of burning with urination use fhvx-ccp-[id number] AZO for bladder Scheduled Follow-Up Appointments Appointment Type When With Where Contact InformationPC CAREY 08/26/2022 10:30 AM [facility] [id number] Follow Up Appointments Follow Up with SOLO VILLEGAS MD When Where: [address] [place] [id number]- The Following Activity and Diet Have Been Ordered for You Discharge Activity - Ordered -- Follow the post-operative/post-procedure activity instructions provided by your physician's office., 07/12/22 15:32:00 EST Discharge Driving Restrictions - Ordered -- No driving until pain-free, 07/12/22 15:32:00 EST Discharge Return to Work, School, or Sports (Discharge Return to status) - Ordered -- May return to: work, 07/12/22 15:32:00 EST Discharge Diet - Ordered -- Follow the post-operative/post-procedure diet instructions provided by your physician's office., 07/12/22 15:32:00 EST Allergies Biofreeze Lipitor (Joint pain) Tagamet (Stomach ache) Zetia (Numbness of finger) fenofibrate (Joint pain) hydrALAZINE (severe allergic reaction) sulfa drugs (Swelling, Hives) Medications Please ask your primary doctor or pharmacist before taking any other medication not listed, including over the counter drugs, herbal medications, vitamins and or supplements as they may interact with your home medications. What How Much When Why Instructions Last Dose New cephalexin (cephalexin 500 mg oral capsule) 1 cap by mouth Four (4) times a day Duration: 7 Days Pickup at [facility]pharmacy #[id number] New ibuprofen (ibuprofen 600 mg oral tablet) 1 tab(s) by mouth Every 6 hours as needed for for pain Take with food or milk[id number] Unchanged acetaminophen (acetaminophen 500 mg oral capsule) 1 cap by mouth Every 6 hours Unchanged acetaminophen-diphenhydramine (Tylenol PM Extra Strength oral tablet) 1 tab(s) by mouth Daily at bedtime as needed for as needed for sleep Unchanged calcium carbonate (Tums Ultra 1000 mg oral tablet, chewable) 1 tab(s) Chewed Two (2) times a day as needed for as needed for dyspepsia Unchanged doxazosin (doxazosin 4 mg oral tablet) TAKE 1 TABLET BY MOUTH EVERY DAY - OKAY TO CRUSH TABLET IF NEEDED Unchanged lansoprazole (lansoprazole 30 mg oral delayed release capsule) 1 cap by mouth Once a day Unchanged lidocaine topical (Aspercreme with Lidocaine 4% topical cream) Topical Three (3) times a day Unchanged mometasone topical (mometasone 0.1% topical ointment) 1 application Topical Every day Unchanged multivitamin (Multivitamin) 1 tab(s) by mouth Two (2) times a day OrthoMune Unchanged topiramate (topiramate 25 mg oral tablet) 1 tab(s) by mouth Once a day Unchanged trolamine salicylate topical (Sports Pain Relief Rub) Unchanged valsartan (valsartan 40 mg oral tablet) 0.5 tab by mouth Once a day HTN (hypertension) [facility] Information [id number] [address], [place] [id number] [phone] What How Much When Comments Stop Taking aspirin (aspirin 81 mg oral tablet, chewable) 1 Chewed Two (2) times a day Please take this list to your next doctor s visit. Bring all medications you take, including over the counter medications, herbals and other supplements with you to your doctor s visit. Patients and families are reminded to discard old lists and to update any records with all medication providers or retail pharmacies. Education Materials General Anesthesia, Adult, Care After This sheet gives you information about how to care for yourself after your procedure. Your health care provider may also give you more specific instructions. If you have problems or questions, contact your health care provider. What can I expect after the procedure? After the procedure, the following side effects are common: Pain or discomfort at the IV site. Nausea. Vomiting. Sore throat. Trouble concentrating. Feeling cold or chills. Weak or tired. Sleepiness and fatigue. Soreness and body aches. These side effects can affect parts of the body that were not involved in surgery. Follow these instructions at home: For at least 24 hours after the procedure: Have a responsible adult stay with you. It is important to have someone help care for you until you are awake and alert. Rest as needed. Do not: ? Participate in activities in which you could fall or become injured. ? Drive. ? Use heavy machinery. ? Drink alcohol. ? Take sleeping pills or medicines that cause drowsiness. ? Make important decisions or sign legal documents. ? Take care of children on your own. Eating and drinking Follow any instructions from your health care provider about eating or drinking restrictions. When you feel hungry, start by eating small amounts of foods that are soft and easy to digest (bland), such as toast. Gradually return to your regular diet. Drink enough fluid to keep your urine pale yellow. If you vomit, rehydrate by drinking water, juice, or clear broth. General instructions If you have sleep apnea, surgery and certain medicines can increase your risk for breathing problems. Follow instructions from your health care provider about wearing your sleep device: ? Anytime you are sleeping, including during daytime naps. ? While taking prescription pain medicines, sleeping medicines, or medicines that make you drowsy. Return to your normal activities as told by your health care provider. Ask your health care provider what activities are safe for you. Take vbgm-fyr-ddbafag and prescription medicines only as told by your health care provider. If you smoke, do not smoke without supervision. Keep all follow-up visits as told by your health care provider. This is important. Contact a health care provider if: You have nausea or vomiting that does not get better with medicine. You cannot eat or drink without vomiting. You have pain that does not get better with medicine. You are unable to pass urine. You develop a skin rash. You have a fever. You have redness around your IV site that gets worse. Get help right away if: You have difficulty breathing. You have chest pain. You have blood in your urine or stool, or you vomit blood. Summary After the procedure, it is common to have a sore throat or nausea. It is also common to feel tired. Have a responsible adult stay with you for the first 24 hours after general anesthesia. It is important to have someone help care for you until you are awake and alert. When you feel hungry, start by eating small amounts of foods that are soft and easy to digest (bland), such as toast. Gradually return to your regular diet. Drink enough fluid to keep your urine pale yellow. Return to your normal activities as told by your health care provider. Ask your health care provider what activities are safe for you. This information is not intended to replace advice given to you by your health care provider. Make sure you discuss any questions you have with your health care provider. Document Released: 08/18/2001 Document Revised: 05/15/2018 Document Reviewed: 12/26/2017 [employer] Patient Education 2020 [employer]. TRANSURETHRAL RESECTION OF BLADDER TUMOR TRANSURETHRAL RESECTION OF BLADDER TUMOR (TURBT): A small scope will be inserted into the bladder. The bladder tumor will be removed and sent to pathology. There are no incisions, the surgery is performed through the bladder. SURGICAL TREATMENT: Surgery: Outpatient (you will be discharged home after surgery. Occasionally you may need to stay overnight)- surgery length of time approximately 60 minutes, no surgical incisions (surgery is done within the bladder with a scope). You may have Mcpherson catheter initially after surgery but generally you with be discharged without a Mcpherson catheter. Occasionally, you may be discharged home with a Mcpherson catheter. May have chemotherapy medication instilled into your bladder to prevent the cancer from coming back. The chemotherapy is generally well tolerated and does not cause your hair to fall out. Surgical prep: Nothing to eat or drink after midnight (night before surgery) Surgery will call the day before to go over arrival time, surgery time, restrictions, and medications. No bowel prep. Medications to hold: Blood thinners, Aspirin, Vitamins, and supplements (unless instructed otherwise). POST OPERATIVE CARE: No surgical dressing. May be discharged with indwelling mcpherson catheter for a couple days. Office to call with follow up to remove catheter; this will be an die maker trim appointment. Monitor urine color for excessive bleeding and/or clots. Urine may be pink tinged. Keep insertion site of catheter clean. You will use a leg bad (smaller bag) during the day and a night bag (large bag) for nighttime. Remember to keep bag lower than the bladder. Empty when - full. Keep catheter secure in place to prevent tension. ACTIVITY: No lifting more than 10-15 pounds for 2 weeks. No work typically for 2-3 days, depending on occupation. May resume driving 2-3 days if not on narcotics. May ride in a car. May shower, even with catheter in. Medications: May be discharged with pain medication and/or antibiotics. What to expect: You may see blood in urine. Like clear to light pink is normal. This can be experienced with or without a catheter in place. When to call office: Temperature of 101 F or higher If urine in mcpherson catheter bag is medrano red/dark red urine with clots. Urine is not draining into bag. Clear to pink urine ok. When catheter is removed in office, please push fluids once removed. If not voided or having trouble voiding by 1-2pm please call the office. The office may bring you back in to scan your bladder to make sure you are emptying properly. If not catheter: Unable to urinate or trouble urinating or pain with urination. FOLLOW UP: Office will call to schedule post-operative appointment. Additional Information VACCINATE! IT SAVES LIVES! Members of the community who have not yet received the COVID-19 vaccine and would like to receive it can visit one of [facility] vaccine clinics. There are many vaccine clinic locations within the [facility]. For locations and available times, please visit [email or web address] It is important to note that some COVID mobile vaccine clinics are held outdoors and may be canceled in rainy or stormy conditions. To learn more about pediatric vaccinations (ages 5-11), we invite you to visit the [facility] webpage. [email or web address] To learn more about the COVID-19 vaccine, we invite you to visit the CDC website for a list of frequently asked questions. https://www.cdc.gov/coronavirus/ 2019-ncov/vaccines/faq.html [facility] Patient [facility] Access Instructions: Stay connected with your healthcare team and access your personal medical information anytime with the [facility] Patient Portal.If you would like a full copy of your medical records, please contact the [facility] Medical Records Department, Friday through Friday between 8a.m. and 4:30p.m. Please follow the directions below to access the portal: 1.Access the email account you provided upon registration to the [facility].2.Look for an invitation email from [facility].3.Open the email and access the invitation link: Accept Invitation to [facility].Fill in the required calixto to create your account. Sign into [email or web address] with your username and password that you created in the above steps to stay up to date. You can then view a summary of results, a summary of your visits, and the ability to download your summaries to your computer or send the information securely to a physician. Remember that your healthcare information is confidential, so carefully consider who you will allow to register on the [facility] Patient Portal for access to your information. You can also access the [facility] Patient Portal on the [employer] areli. Simply click on Health Records under Health Data and then click on the [facility] logo. HOW TO SAFELY DISPOSE OF PRESCRIPTION MEDICATIONS Please use one of the following methods to safely dispose of your unused medications. 1.Use a drug disposal kit: the drug disposal pouch allows you to safely discard your old and unused drugs. Ask your nurse to give you one when you are discharged.2.Visit a local take-back location: Many local pharmacies and police departments have programs that collect old and unwanted prescription drugs. Call your local pharmacy or go to http://bit.[facility]/1K8Ll5l to find one close to you.3.Make use of household items: Use cat litter or old coffee grounds to dispose medications if other options are not available. Mix your drugs with these household products, seal them in an airtight container and throw it into the garbage. Call [facility]: [phone] to be sure your drugs can be disposed of in this way. Some medicines may require a different approach.4.Never flush your medications down the toilet. IF YOU HAVE BEEN PRESCRIBED AN OPIOID FOR PAIN If you have been prescribed an opioid (such as hydrocodone, oxycodone or morphine), it is critical to understand the possible side effects and risks of opioid pain medications. Even when taken as directed, opioids can have several side effects including: Tolerance, meaning you might need to take more of a medication for the same pain relief. Nausea, vomiting and/or constipation. Sleepiness, dizziness, dry mouth, confusion, depression or itching. Physical dependence, meaning you have withdrawal symptoms when a medication is stopped, can develop within a few days. KNOW YOUR RESPONSIBILITIES It is important to know exactly how much and how often to take the opioid pain medications you are prescribed. Never take opioids in higher amounts or more often than prescribed. Do not combine opioids with alcohol or other drugs that cause drowsiness, such as benzodiazepines, also known as benzos, including diazepam and alprazolam, muscle relaxants or sleep aids. Never sell or share prescription opioids. This is illegal. Store opioids in a secure place and out of reach of others (including children, family, friends and visitors). The last page of this document has been signed and retained as a CHART COPY. Signatures Patient Education Materials General Anesthesia, Adult, Care After 1-SDS URO Transurethral Resection of Bladder Tumor (02/2022)(CUSTOM) Medication Leaflets My discharge plan and instructions have been reviewed and explained to me and IAGUILAR SAMUEL A understand my current condition and have read and understand these discharge instructions. I have received a written copy of the plan/instructions. If I have questions, I am aware that I should contact my doctor. Patient/Corporate Quality Manager Signature: Date/Time: Relationship to Patient: Witness Name/Signature: Date/Time: [facility] 07-12-2022 Anesthesiology Consult note Patient: PATY SHEIKH Age: 76 years Sex: Male : 1945 Associated Diagnoses: None Author: BERTRAND SHEIKH Preoperative Information Time of last food or liquid consumption: 07/12/2022 00:00:00 Anesthesia history Patient's history: negative. Family's history: negative. Review of Systems Ear/Nose/Mouth/Throat: Negative. Cardiovascular: cad, hx mi, htn. Gastrointestinal: Reflux. Genitourinary: bph. Endocrine: Negative, BPH. Musculoskeletal: Back pain, Neck pain, OA. Integumentary: hx chemo, non hodgkins. Neurologic: Negative. Health Status Allergies: Allergic Reactions (Selected) Severity Not Documented Biofreeze- No reactions were documented. Fenofibrate- Joint pain. HydrALAZINE- Severe allergic reaction. Lipitor- Joint pain. Sulfa drugs- Swelling and hives. Tagamet- Stomach ache. Zetia- Numbness of finger., Allergies (7) ActiveReaction BiofreezeNone Documented fenofibrateJoint pain hydrALAZINEsevere allergic reaction LipitorJoint pain sulfa drugsHives TagametStomach ache ZetiaNumbness of finger Current medications: (Selected) Inpatient Medications Ordered Kefzol: 2 gram(s), 200 mL/hr, IV Piggyback, PREOP pharm LR 1000 mL: 20 mL/hr, Intravenous NS 1000 mL: 25 mL/hr, Intravenous, Stop: 07/13/22 17:59:00 EST Zofran ( PACU ): 4 mg, 2 mL, IV Push, AsDirected, PRN: Nausea/Vomiting morphine ( PACU ): 2 mg, 1 mL, IV Push, q5min, PRN: Pain, scale 4-6 Prescriptions Prescribed cephalexin 500 mg oral capsule: 500 mg, 1 cap(s), Oral, QID, for 7 day(s), 28 cap(s), 0 Refill(s) ibuprofen 600 mg oral tablet: 600 mg, 1 tab(s), Oral, q6h, Take with food or milk., PRN: for pain, 20 tab(s), 0 Refill(s) lansoprazole 30 mg oral delayed release capsule: 30 mg, 1 cap(s), Oral, qDay, 90 cap(s), 3 Refill(s) mometasone 0.1% topical ointment: 1 areli, Topical, Daily, 15 gram(s), 3 Refill(s) valsartan 40 mg oral tablet: 0.5 tab, Oral, qDay, 45 tab(s), 3 Refill(s) Documented Medications Documented Aspercreme with Lidocaine 4% topical cream: Topical, TID, 0 Refill(s) Multivitamin: 1 tab(s), Oral, BID, OrthoMune, 0 Refill(s) Sports Pain Relief Rub: 0 Refill(s) Tums Ultra 1000 mg oral tablet, chewable: 1,000 mg, 1 tab(s), Chewed, BID, PRN: as needed for dyspepsia, 12 tab(s), 0 Refill(s) Tylenol PM Extra Strength oral tablet: 1 tab(s), Oral, qHS, PRN: as needed for sleep, 0 Refill(s) acetaminophen 500 mg oral capsule: 500 mg, 1 cap(s), Oral, q6hr, 0 Refill(s) doxazosin 4 mg oral tablet: TAKE 1 TABLET BY MOUTH EVERY DAY - OKAY TO CRUSH TABLET IF NEEDED topiramate 25 mg oral tablet: 25 mg, 1 tab(s), Oral, qDay, 0 Refill(s), Medications (5) Active Scheduled: (1) ceFAZolin 2 gram(s), IV Piggyback, PREOP pharm Continuous: (2) Lactated Ringers Infusion 1000 mL 1,000 mL, Intravenous, 20 mL/hr NS (0.9% nacl) 1000 mL 1,000 mL, Intravenous, 25 mL/hr PRN: (2) morphine 2 mg/mL 1 mL syringe 2 mg 1 mL, IV Push, q5min ondansetron 2 mg/ 1 mL 2 mL INJ 4 mg 2 mL, IV Push, AsDirected Problem list: Medical Bowel habit changes / SNOMED CT 181199621 / Confirmed BPH with obstruction/lower urinary tract symptoms / SNOMED CT 1618247013 / Confirmed Bilateral carpal tunnel syndrome / SNOMED CT 23697925 / Confirmed Cerebral amyloid angiopathy / SNOMED CT 945402852 / Confirmed Coronary artery disease / SNOMED CT 30038505 / Confirmed Family history of colon cancer / SNOMED CT 813735432 / Confirmed Gastroesophageal reflux disease / SNOMED CT 394595678 / Confirmed Hip pain, bilateral / SNOMED CT 87092285 / Confirmed History of chemotherapy / SNOMED CT 5592944990 / Confirmed History of myocardial infarction / SNOMED CT 9358350156 / Confirmed History of non-Hodgkin's lymphoma / SNOMED CT 6766655637 / Confirmed History of radiation therapy / SNOMED CT 9472454065 / Confirmed Hypercholesteremia / SNOMED CT 42022198 / Confirmed HTN (hypertension) / SNOMED CT 6676354059 / Confirmed Groin pain, chronic, left / SNOMED CT 531940892 / Confirmed Porcelain gallbladder / SNOMED CT 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 / Confirmed Renal lesion / SNOMED CT 5851347798 / Confirmed Knee pain, bilateral / SNOMED CT 42265528 / Confirmed Left flank pain / SNOMED CT 981722689 / Confirmed Leukocytosis / SNOMED CT 464076367 / Confirmed Memory changes / SNOMED CT 7844306690 / Confirmed Microscopic hematuria / SNOMED CT 011190026 / Confirmed Mixed hyperlipidemia / SNOMED CT 923643001 / Confirmed Heart attack / SNOMED CT 80755995 / Confirmed Neck pain on right side / SNOMED CT 609019991 / Confirmed Non-Hodgkin lymphoma / SNOMED CT 774860254 / Confirmed Primary osteoarthritis of left hip / SNOMED CT 8298488178 / Confirmed Screening for prostate cancer / SNOMED CT 697846937 / Confirmed Well adult exam / SNOMED CT 191081436 / Confirmed Pre-op exam / SNOMED CT 530165036 / Confirmed Right shoulder pain / SNOMED CT 74212192 / Confirmed Lumbar spinal stenosis / SNOMED CT 58031487 / Confirmed, Active Problems (32) Bilateral carpal tunnel syndrome Bowel habit changes 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 Coronary artery disease Family history of colon cancer Gastroesophageal reflux disease Groin pain, chronic, left Heart attack Hip pain, bilateral History of chemotherapy History of myocardial infarction History of non-Hodgkin's lymphoma History of radiation therapy HTN (hypertension) Hypercholesteremia Knee pain, bilateral Left flank pain Leukocytosis Lumbar spinal stenosis Memory changes Microscopic hematuria Mixed hyperlipidemia Neck pain on right side Non-Hodgkin lymphoma Porcelain gallbladder Pre-op exam Primary osteoarthritis of left hip Renal lesion Right shoulder pain Screening for prostate cancer Well adult exam Histories Past Medical History: Resolved Immunization due (664284250): Resolved. Excessive cerumen in both ear canals (107623): Resolved. Pain in joint involving multiple sites (813765064): Resolved. Acute myocardial infarction (54259072): Resolved. Brain TIA (155242708): Resolved. Subarachnoid hemorrhage (5268536789): Resolved. Family History: Cancer Sister Diabetes mellitus Mother Sister Cancer of colon Mother Brother Cancer Mother Brother Procedure history: Hip replacement (1564532678) in the month of 02/2022 at 76 Years. Comments: 05/08/2022 8:47 EST - CouGarima emmanuel CMA Left Screening colonoscopy (3309311086) on 12/24/2018 at 73 Years. Placement of stent ([id number]) in 2010 at 65 Years. Comments: 01/13/2020 13:39 EDT - Kathleen Conklin LPN CARDIAC Excision ([id number]). Comments: 01/13/2020 13:26 EDT - Kathleen Conklin LPN TUMOR LEFT GROIN Left wrist ([id number]). Comments: 05/08/2022 8:47 Garima Almaraz CMA carpal tunnel Biopsy of right inguinal region using ultrasonographic guidance ([id number]). Comments: 05/08/2022 8:45 Garima Almaraz CMA Non hodgkinson's lymphoma Excision of lipoma (641604873). Comments: 05/08/2022 8:45 Garima Almaraz CMA Left groin Social History Social & Psychosocial Habits Alcohol 02/09/2018Risk Assessment: Denies Alcohol Use 03/23/2019 Use: Never Employment/School 07/13/2020 Status: Retired Substance Abuse 02/09/2018Risk Assessment: Denies Substance Abuse 03/23/2019 Use: Never Tobacco 03/23/2019 Tobacco Use: Never (less than 100 in l Exercise 07/13/2020 Times per week: 3-4 times/week Home/Environment 07/13/2020 Domestic Concerns None Living situation: Home/Independent Nutrition/Health 03/23/2019 Caffeine intake amount: tea 2 x weekly . Physical Examination Vital Signs 07/12/2022 14:50 EST Heart Rate Monitored 64 bpm bpm Respiratory Rate - Anes 7 br/min br/min 07/12/2022 14:47 EST Systolic Blood Pressure Non-Invasive 136 mmHg mmHg Diastolic Blood Pressure Non-Invasive 80 mmHg mmHg 07/12/2022 13:30 EST Temperature Temporal Artery 36.5 DegC Apical Heart Rate 69 bpm Respiratory Rate 16 br/min Systolic Blood Pressure Non-Invasive 148 mmHg HI Diastolic Blood Pressure Non-Invasive 77 mmHg Vital Signs(last 24 hrs) Last Charted Heart Rate Buxudiecf01 bpm (JUL 12 14:50) Resp Rate 16 br/min (JUL 12 13:30) VGM141 mmHg (JUL 12 14:47) DBP80 mmHg (JUL 12 14:47) Measurements from flowsheet : Measurements 07/12/2022 13:30 EST Height 178 cm Admission Weight 98 kg Weight Method Stated [place] Body Weight 73.18 kg Pain assessment: Pain Assessment 07/12/2022 13:30 EST Pain Scale Type 0-10 Pain scale . General: Alert and oriented. Airway: Normal temporomandibular joint mobility. Mallampati classification: II (soft palate, fauces, uvula visible). Head: Normocephalic. Dentition Evaluation: Own teeth. Neck: Supple. Respiratory: Lungs are clear to auscultation. Cardiovascular: Normal rate. Heart Sounds: Normal. Gastrointestinal: Soft. Musculoskeletal Normal range of motion. Integumentary: Intact. Neurologic: Alert, Oriented. Review / Management Results review: No qualifying data available , Lab results 07/12/2022 14:56 EST SN - CTm - Surgery Start 07/12/2022 14:54 07/12/2022 14:56 EST SN - Proc - Actual Procedure TRANSURETHRAL RESECTION BLADDER TUMOR, MEDIUM 07/12/2022 14:56 EST SN - SP - Prep Agents Betadine Scrub, Betadine Solution SN - SP - HR - Method Clipped 07/12/2022 14:54 EST SN - PP - Body Position Lithotomy Standard Intra-op 07/12/2022 14:54 EST SN - PTCare - Anti-thromboembolism Ayde Sequential Compression Device (SCD) 07/12/2022 14:51 EST SN - CAt - Case Attendee SN - CAt - Case Attendee SN - CAt - Role Performed Charge Account Authorizer 1 07/12/2022 14:50 EST Heart Rate Monitored 64 bpm bpm Respiratory Rate - Anes 7 br/min br/min Oxygen Saturation 99.2 % % 07/12/2022 14:47 EST Systolic Blood Pressure Non-Invasive 136 mmHg mmHg Diastolic Blood Pressure Non-Invasive 80 mmHg mmHg 07/12/2022 14:45 EST Patient Instructions Documentation Patient Instructions Documentation 07/12/2022 14:42 EST [place] History and Physical History and Physical Update Note 07/12/2022 14:42 EST Patient Instructions Documentation Patient Instructions Documentation 07/12/2022 14:17 EST SN - Assess - LOC Alert SN - Assess - Orientation Oriented X 3 SN - Assess - Post-op Skin Integrity Intact/Dry 07/12/2022 14:15 EST SN - GCD - Post-operative Diagnosis ASYMPTOMATIC MICROSCOPIC HEMATURIA SN - GCD - Case Level Level 3 07/12/2022 14:14 EST SN - Cul - Culture Type No Specimen per Surgeon 07/12/2022 14:14 EST SN - CAt - Case Attendee SN - CAt - Case Attendee SN - CAt - Case Attendee SN - CAt - Case Attendee SN - CAt - Case Attendee SN - CAt - Case Attendee SN - CAt - Case Attendee SN - CAt - Case Attendee SN - CAt - Case Attendee SN - CAt - Case Attendee SN - CAt - Role Performed Primary Surgeon SN - CAt - Role Performed Biochemistry Technologist 1 SN - CAt - Role Performed Biochemistry Technologist 2 SN - CAt - Role Performed ROLL HANDLER SN - CAt - Role Performed Scrub 1 07/12/2022 13:50 EST SN - Preop - CTm Pt in SDS Room 07/12/2022 13:25 SN - Preop - CTm Pt Ready for OR/Proced 07/12/2022 13:47 07/12/2022 13:46 EST Sodium Chloride 0.9% Begin Bag 1,000 mL mL 07/12/2022 13:30 EST Designated Person #1 We May Share PHI Designated Person #1 We May Share PHI Designated Person #1 Relationship Spouse Designated Person #2 We May Share PHI Dee Dee [phone] Designated Person #2 Relationship Daughter Privacy Restrictions Requested None Height 178 cm Admission Weight 98 kg Weight Method Stated [place] Body Weight 73.18 kg Temperature Temporal Artery 36.5 DegC Apical Heart Rate 69 bpm Respiratory Rate 16 br/min Systolic Blood Pressure Non-Invasive 148 mmHg HI Diastolic Blood Pressure Non-Invasive 77 mmHg Pain Scale Type 0-10 Pain scale Heart Rhythm Regular Oxygen Therapy Room air Oxygen Saturation 95 % Abdomen Description Non-distended, Soft, Rounded Bowel Sounds All Quadrants Present Genitourinary Symptoms Dysuria, Retention Urinary Elimination Voiding with difficulties Status N/A Skin Description Normal for ethnicity Skin Integrity Intact IV Present Present Hand Left 07/12/2022 20 gauge Peripheral IV Activity: Insert new site Peripheral IV Dressing Condition: Clean, Dry, Intact Peripheral IV Dressing Activity: Applied, Transparent dressing Peripheral IV Line Status/Patency: Flushes easily Peripheral IV Line Care: Secured with tape Peripheral IV Site Condition: No complications Peripheral IV Equipment: Extension set Peripheral IV Number of Attempts: 1 Characteristics of Speech Clear Level of Consciousness Alert Affect/Behavior Appropriate, Calm, Cooperative Orientation Oriented x 4 Sensory Deficits None Sleep Apnea Snore Yes Sleep Apnea Tired No Sleep Apnea Obstruction No Sleep Apnea Pressure Yes Sleep Apnea BMI Yes Sleep Apnea Age Yes Sleep Apnea Neck Yes Sleep Apnea Gender Yes Sleep Apnea Score 6 >HHI High Risk for Sleep Apnea Yes Diagnosed With Sleep Apnea No Advanced Directives Unable to obtain Infectious Disease Symptoms Patient states no symptoms Infectious Disease Recent Exposure No Alcohol and Drug Use No Employee of Institutional Living No Health Care Employee No History of Exposure to TB No History of Positive Chest X-Ray for TB No History of Positive TB Skin Test No Homeless No Known Immunosuppression No Recent Immigrant No Resident of Institutional Living No Bloody Sputum No Fatigue No Fever No Loss of Appetite No Night Sweats No Persistent Cough > 3 Weeks No Weight Loss No Allergies Yes Lead Installer On Yes Consent Form Signed Yes Patient Dressed In Hospital gown Pre-op Preparation Glasses removed History & Physical Update On Chart Yes History & Physical On Chart Yes Obstructive Sleep Apnea Assess Completed Yes Orientation Assessment Oriented x 4 Safety Brochure Information Reviewed Yes [facility] Video Viewed No Barriers to Learning None evident Teaching Method Explanation Teaching Evaluation No further teaching needed Preferred Written Language German Preferred Spoken Language German Information Given by Patient Patient's Current Physicians Patient's Current Physicians Discharge To, Anticipated Home with family care Activity Status ADL Awake, Repositions self SCD On/Re-applied bilateral knee high NPO Status Maintained, More than 8 hours Standard Safety ID band on, Allergy Band on, Call device within reach, Bed in low position, Wheels locked, Safety level maintained Prev Test Positive/Diagnosis w/COVID-19 Yes Previous COVID-19 Positive Date 03/2020 Current Quarantine/Isolated any Illness No Any Contact with Sick Animals/Birds No Traveled Anywhere in Last 30 Days No Allergy Band on and Verified Yes Patient ID Band on and Verified Yes Implants Verified Yes Pacemaker/AICD Verified No Anesthesia Consent Signed Yes Last Fluid Intake 07/11/2022 11:59 Last Food Intake 07/11/2022 23:00 Last Void 07/12/2022 13:00 Lost Weight Unintentionally Recently No Eat Poorly Due to Decreased Appetite No Total MST Score 0 N/A Personal Devices, Patient Valuables Glasses Anesthesia/Transfusions Prior anesthesia Admission Note-Nursing Same Day Patient History 07/11/2022 8:00 EST STEFumwaqas LEAL . Assessment and Plan [place] [employer] Anesthesiologists (ASA) physical status classification: Class III. Anesthetic Preoperative Plan Premedication: intravenous. Anesthetic technique: General. Induction: intravenously. Maintenance airway: Laryngeal mask airway. Postoperative pain management: Per surgeon. Risks discussed: nausea, vomiting, sore throat. Informed consent: signed by patient. Digitally Signed by BERTRAND SHEIKH on 07/12/2022 03:02 PM [facility] 07-12-2022 Note Date of Service July 12, 2022 History and Physical Update I have examined the patient; reviewed the History and Physical and there are no changes to the History and Physical unless noted below. History and Physical This is a 76-year-old male who had microscopic hematuria on cystoscopy was found to have multiple large bladder tumors today we plan to take in the surgery to resect these large tumors understands the risk of recurrence risk of bleeding infection with the procedure and we will send him home today with some antibiotics and pain medicine. Digitally Signed by SOLO VILLEGAS MD on 07/12/2022 02:42 PM [facility] 05-21-2022 Note ORIGINAL EXAMINATION: RIGHT UPPER QUADRANT ULTRASOUND 05/21/2022 2:06 pm COMPARISON: CT abdomen pelvis 04/04/2022, 02/15/2022, CT chest 03/06/2018 HISTORY: ORDERING SYSTEM PROVIDED HISTORY: Reason for Exam: Porcelain gallbladder FINDINGS: LIVER: The liver measures 16.7 cm and demonstrates normal echogenicity and echotexture. No intrahepatic biliary ductal dilatation. BILIARY SYSTEM: The gallbladder demonstrates peripheral calcification of the superior gallbladder wall with posterior shadowing which obscures evaluation of the remainder of the gallbladder. This was previously shown to have diffuse peripheral calcification on the prior CT. The sonographic Marquez sign is negative. Common bile duct is within normal limits measuring 6 mm. RIGHT KIDNEY: The right kidney measures 11.8 cm and is grossly unremarkable without evidence of hydronephrosis. PANCREAS: The pancreas is predominantly obscured due to overlying bowel gas. OTHER: No evidence of right upper quadrant ascites. The proximal and mid aorta are not visualized due to overlying bowel gas. The distal portion of visualized aorta demonstrates mild atherosclerosis. The visualized portion of the IVC is within normal limits. IMPRESSION: Porcelain gallbladder better seen on CT. This has a debatable increased risk of gallbladder cancer. I have personally reviewed the images of this examination and agree with the resident's findings and interpretation. Interpreted by: Rell Hastings MD Preliminary Report By: Steven Galan Electronically signed By Rell Hastings MD Dictated Date: 05/21/2022 3:23:08 PM Prelim Date: 05/21/2022 4:46:40 PM Sign Date: 05/21/2022 4:46:40 PM Ordering Provider: GUILLERMO TAYLOR [facility] 05-21-2022 Note ORIGINAL EXAMINATION: ULTRASOUND OF THE KIDNEYS 05/21/2022 2:05 pm TECHNIQUE: Grayscale imaging of the kidneys was performed. COMPARISON: CT abdomen pelvis 04/04/2022. HISTORY: ORDERING SYSTEM PROVIDED HISTORY: Reason for Exam: Left renal hypodense lesion noted on CT FINDINGS: The right kidney measures 11.6 cm in length and the left kidney measures 11.8 cm in length, respectively. The kidneys demonstrate normal cortical thickness. No pelvocaliectasis. There is an anechoic lesion in the midpole of the left kidney with posterior enhancement measuring 1.8 x 2 x 1.9 cm without associated central vascularity. There is also mild left renal scarring. The right kidney is within normal limits. The prostate gland is normal in size measuring 2.8 x 3.5 x 2.3 cm. The bladder demonstrates mild wall thickening which may be secondary to under distension. The prevoid volume is 67.9 cc and the postvoid volume is 11.6 cc. There is a 1.3 cm echogenic focus with equivocal posterior shadowing in the dependent portion of the bladder, likely a bladder calculus. IMPRESSION: Left midpole renal lesion is a benign renal cyst. 1.3 cm bladder calculus. Correlate with KUB. I have personally reviewed the images of this examination and agree with the resident's findings and interpretation. Interpreted by: Rell Hastings MD Preliminary Report By: Steven Galan Electronically signed By Rell Hastings MD Dictated Date: 05/21/2022 3:07:14 PM Prelim Date: 05/21/2022 4:41:33 PM Sign Date: 05/21/2022 4:41:33 PM Ordering Provider: BRENNA MILLS [facility] 05-21-2022 Note ORIGINAL EXAMINATION: RIGHT UPPER QUADRANT ULTRASOUND 05/21/2022 2:06 pm COMPARISON: CT abdomen pelvis 04/04/2022, 02/15/2022, CT chest 03/06/2018 HISTORY: ORDERING SYSTEM PROVIDED HISTORY: Reason for Exam: Porcelain gallbladder FINDINGS: LIVER: The liver measures 16.7 cm and demonstrates normal echogenicity and echotexture. No intrahepatic biliary ductal dilatation. BILIARY SYSTEM: The gallbladder demonstrates peripheral calcification of the superior gallbladder wall with posterior shadowing which obscures evaluation of the remainder of the gallbladder. This was previously shown to have diffuse peripheral calcification on the prior CT. The sonographic Marquez sign is negative. Common bile duct is within normal limits measuring 6 mm. RIGHT KIDNEY: The right kidney measures 11.8 cm and is grossly unremarkable without evidence of hydronephrosis. PANCREAS: The pancreas is predominantly obscured due to overlying bowel gas. OTHER: No evidence of right upper quadrant ascites. The proximal and mid aorta are not visualized due to overlying bowel gas. The distal portion of visualized aorta demonstrates mild atherosclerosis. The visualized portion of the IVC is within normal limits. IMPRESSION: Porcelain gallbladder better seen on CT. This has a debatable increased risk of gallbladder cancer. I have personally reviewed the images of this examination and agree with the resident's findings and interpretation. Interpreted by: Rell Hastings MD Preliminary Report By: Steven Galan Electronically signed By Rell Hastings MD Dictated Date: 05/21/2022 3:23:08 PM Prelim Date: 05/21/2022 4:46:40 PM Sign Date: 05/21/2022 4:46:40 PM Ordering Provider: GUILLERMO TAYLOR [facility] 05-21-2022 Note ORIGINAL EXAMINATION: ULTRASOUND OF THE KIDNEYS 05/21/2022 2:05 pm TECHNIQUE: Grayscale imaging of the kidneys was performed. COMPARISON: CT abdomen pelvis 04/04/2022. HISTORY: ORDERING SYSTEM PROVIDED HISTORY: Reason for Exam: Left renal hypodense lesion noted on CT FINDINGS: The right kidney measures 11.6 cm in length and the left kidney measures 11.8 cm in length, respectively. The kidneys demonstrate normal cortical thickness. No pelvocaliectasis. There is an anechoic lesion in the midpole of the left kidney with posterior enhancement measuring 1.8 x 2 x 1.9 cm without associated central vascularity. There is also mild left renal scarring. The right kidney is within normal limits. The prostate gland is normal in size measuring 2.8 x 3.5 x 2.3 cm. The bladder demonstrates mild wall thickening which may be secondary to under distension. The prevoid volume is 67.9 cc and the postvoid volume is 11.6 cc. There is a 1.3 cm echogenic focus with equivocal posterior shadowing in the dependent portion of the bladder, likely a bladder calculus. IMPRESSION: Left midpole renal lesion is a benign renal cyst. 1.3 cm bladder calculus. Correlate with KUB. I have personally reviewed the images of this examination and agree with the resident's findings and interpretation. Interpreted by: Rell Hastings MD Preliminary Report By: Steven Galan Electronically signed By Rell Hastings MD Dictated Date: 05/21/2022 3:07:14 PM Prelim Date: 05/21/2022 4:41:33 PM Sign Date: 05/21/2022 4:41:33 PM Ordering Provider: BRENNA MILLS [facility] 04-06-2022 Note Discharge Instructions Thank you for allowing [facility] to assist you with your healthcare needs. The following is important discharge information regarding your hospital visit. Your Care Team ZOIE CANO DO Your Diagnosis HTN (hypertension) What to do next Instructions From Your Doctor You were treated for back pain and leg pain. Medication for baclofen was sent to your pharmacy. Follow with your primary care physician and the neurosurgeon as an outpatient. Call your doctor or present to the ER for any new or worsening symptoms. Scheduled Follow-Up Appointments Appointment Type When With Where Contact InformationPT Treatment - [facility] 04/08/2022 02:30 PM EST [facility] - [facility] 04/10/2022 02:30 PM EST [facility] - [facility] 04/15/2022 02:30 PM EST [facility] - [facility] 04/17/2022 01:00 PM EST [facility] - [facility] 04/22/2022 01:00 PM EST [facility] Treatment - [facility] 04/25/2022 01:00 PM EST [facility] OV 08/26/2022 10:30 AM EDT ZOIE CANO DO [facility] [address] [address] Follow Up Appointments Follow Up with ZOIE CANO DO When Within 5 to 7 days Why: Follow up with primary care physician as an outpatient. Where: [address] [place] [phone] Follow Up with ELLIS FULTON, CHRISTOPHER Kimbrough, Neurosurgery When In 4 weeks Why: Follow-up with neurosurgery as an outpatient. Call to make an appointment. Where: [address] [facility] [place] [address] [phone] The Following Activity and Diet Have Been Ordered for You Discharge Activity - Ordered -- Activity As Tolerated, 04/06/22 15:24:00 EST Discharge Diet - Ordered -- No changes were made to your diet during your hospital stay. Please resume your pre hospitalization diet on discharge., 04/06/22 15:24:00 EST The Following Equipment Has Been Ordered for You No qualifying data available. The Following Treatments Have Been Ordered for You Discharge Labs No qualifying data available. Discharge Radiology No qualifying data available. Other Therapies No qualifying data available. Post Acute Orders No qualifying data available. Someone Will Contact You Regarding These Home Health Referrals No home referrals have been ordered for you. No one will call you. Allergies Biofreeze Lipitor (Joint pain) Tagamet (Stomach ache) Zetia (Numbness of finger) fenofibrate (Joint pain) hydrALAZINE sulfa drugs Medications Please ask your primary doctor or pharmacist before taking any other medication not listed, including over the counter drugs, herbal medications, vitamins and or supplements as they may interact with your home medications. What How Much When Why Instructions Last Dose New baclofen (baclofen 5 mg oral tablet) 1 tab(s) by mouth Three (3) times a day as needed for Spasm Duration: 7 Days Pickup at [facility]/pharmacy #[id number] Unchanged acetaminophen (acetaminophen 500 mg oral capsule) 1 cap by mouth Every 6 hours Unchanged aspirin (aspirin 81 mg oral tablet, chewable) 1 Chewed Two (2) times a day Unchanged calcium carbonate (Tums Ultra 1000 mg oral tablet, chewable) 1 tab(s) Chewed Two (2) times a day as needed for as needed for dyspepsia Unchanged lansoprazole (lansoprazole 30 mg oral delayed release capsule) 1 cap by mouth Once a day Unchanged mometasone topical (mometasone 0.1% topical ointment) 1 application Topical Every day Unchanged multivitamin (Multivitamin) 1 tab(s) by mouth Two (2) times a day OrthoMune Unchanged oxyCODONE (oxyCODONE 5 mg oral tablet ( IMMEDIATE release )) 2 tab(s) by mouth Every 6 hours as needed for as needed for pain Unchanged topiramate (topiramate 25 mg oral tablet) 1 tab(s) by mouth Once a day Unchanged valsartan (valsartan 40 mg oral tablet) 0.5 tab by mouth Once a day HTN (hypertension) Pharmacy Information [facility]/pharmacy #[id number]: [address], [place] [phone] Please take this list to your next doctor s visit. Bring all medications you take, including over the counter medications, herbals and other supplements with you to your doctor s visit. Patients and families are reminded to discard old lists and to update any records with all medication providers or retail pharmacies. Education Materials Acute Back Pain, Adult Acute back pain is sudden and usually short-lived. It is often caused by an injury to the muscles and tissues in the back. The injury may result from: A muscle or ligament getting overstretched or torn (strained). Ligaments are tissues that connect bones to each other. Lifting something improperly can cause a back strain. Wear and tear (degeneration) of the spinal disks. Spinal disks are circular tissue that provides cushioning between the bones of the spine (vertebrae). Twisting motions, such as while playing sports or doing yard work. A hit to the back. Arthritis. You may have a physical exam, lab tests, and imaging tests to find the cause of your pain. Acute back pain usually goes away with rest and home care. Follow these instructions at home: Managing pain, stiffness, and swelling Take rqwu-rzu-bzzxbph and prescription medicines only as told by your health care provider. Your health care provider may recommend applying ice during the first 24 48 hours after your pain starts. To do this: ? Put ice in a plastic bag. ? Place a towel between your skin and the bag. ? Leave the ice on for 20 minutes, 2 3 times a day. If directed, apply heat to the affected area as often as told by your health care provider. Use the heat source that your health care provider recommends, such as a moist heat pack or a heating pad. ? Place a towel between your skin and the heat source. ? Leave the heat on for 20 30 minutes. ? Remove the heat if your skin turns bright red. This is especially important if you are unable to feel pain, heat, or cold. You have a greater risk of getting burned. Activity Do not stay in bed. Staying in bed for more than 1 2 days can delay your recovery. Sit up and stand up straight. Avoid leaning forward when you sit, or hunching over when you stand. ? If you work at a desk, sit close to it so you do not need to lean over. Keep your chin tucked in. Keep your neck drawn back, and keep your elbows bent at a right angle. Your arms should look like the letter L. ? Sit high and close to the steering wheel when you drive. Add lower back (lumbar) support to your car seat, if needed. Take short walks on even surfaces as soon as you are able. Try to increase the length of time you walk each day. Do not sit, drive, or passenger interline clerk one place for more than 30 minutes at a time. Sitting or standing for long periods of time can put stress on your back. Do not drive or use heavy machinery while taking prescription pain medicine. Use proper lifting techniques. When you bend and lift, use positions that put less stress on your back: ? Bend your knees. ? Keep the load close to your body. ? Avoid twisting. Exercise regularly as told by your health care provider. Exercising helps your back heal faster and helps prevent back injuries by keeping muscles strong and flexible. Work with a physical therapist to make a safe exercise program, as recommended by your health care provider. Do any exercises as told by your physical therapist. Lifestyle Maintain a healthy weight. Extra weight puts stress on your back and makes it difficult to have good posture. Avoid activities or situations that make you feel anxious or stressed. Stress and anxiety increase muscle tension and can make back pain worse. Learn ways to manage anxiety and stress, such as through exercise. General instructions Sleep on a firm mattress in a comfortable position. Try lying on your side with your knees slightly bent. If you lie on your back, put a pillow under your knees. Follow your treatment plan as told by your health care provider. This may include: ? Cognitive or behavioral therapy. ? Acupuncture or massage therapy. ? Meditation or yoga. Contact a health care provider if: You have pain that is not relieved with rest or medicine. You have increasing pain going down into your legs or buttocks. Your pain does not improve after 2 weeks. You have pain at night. You lose weight without trying. You have a fever or chills. Get help right away if: You develop new bowel or bladder control problems. You have unusual weakness or numbness in your arms or legs. You develop nausea or vomiting. You develop abdominal pain. You feel faint. Summary Acute back pain is sudden and usually short-lived. Use proper lifting techniques. When you bend and lift, use positions that put less stress on your back. Take fnag-apc-axdpyzi and prescription medicines and apply heat or ice as directed by your health care provider. This information is not intended to replace advice given to you by your health care provider. Make sure you discuss any questions you have with your health care provider. Document Released: 05/12/2006 Document Revised: 08/31/2019 Document Reviewed: 12/24/2017 Elsevier Patient Education 2020 [employer] Additional Information VACCINATE! IT SAVES LIVES! Members of the community who have not yet received the COVID-19 vaccine and would like to receive it can visit one of [facility] vaccine clinics. There are many vaccine clinic locations within the [facility]. For locations and available times, please visit [email or web address] hio.gov/. It is important to note that some COVID mobile vaccine clinics are held outdoors and may be canceled in rainy or stormy conditions. To learn more about pediatric vaccinations (ages 5-11), we invite you to visit the [facility] webpage. [email or web address]/p [email or web address]-Freq qgmipt-Pxzky-[email or web address].html To learn more about the COVID-19 vaccine, we invite you to visit the [facility] website for a list of frequently asked questions. [email or web address] [email or web address] [facility] Patient Portal Access Instructions: Stay connected with your healthcare team and access your personal medical information anytime with the [facility] Patient Portal.If you would like a full copy of your medical records, please contact the [facility] Medical Records Department, Friday through Friday between 8a.m. and 4:30p.m. Please follow the directions below to access the portal: 1.Access the email account you provided upon registration to the [facility].2.Look for an invitation email from [facility].3.Open the email and access the invitation link: Accept Invitation to [facility].Fill in the required calixto to create your account. Sign into www.[employer] with your username and password that you created in the above steps to stay up to date. You can then view a summary of results, a summary of your visits, and the ability to download your summaries to your computer or send the information securely to a physician. Remember that your healthcare information is confidential, so carefully consider who you will allow to register on the [facility] Patient Portal for access to your information. You can also access the [facility] Patient Portal on the [employer] areli. Simply click on Health Records under Health Data and then click on the [employer] logo. HOW TO SAFELY DISPOSE OF PRESCRIPTION MEDICATIONS Please use one of the following methods to safely dispose of your unused medications. 1.Use a drug disposal kit: the drug disposal pouch allows you to safely discard your old and unused drugs. Ask your nurse to give you one when you are discharged.2.Visit a local take-back location: Many local pharmacies and police departments have programs that collect old and unwanted prescription drugs. Call your local pharmacy or go to http://[employer]/2C6Rs6t to find one close to you.3.Make use of household items: Use cat litter or old coffee grounds to dispose medications if other options are not available. Mix your drugs with these household products, seal them in an airtight container and throw it into the garbage. Call [facility]: [phone] to be sure your drugs can be disposed of in this way. Some medicines may require a different approach.4.Never flush your medications down the toilet. IF YOU HAVE BEEN PRESCRIBED AN OPIOID FOR PAIN If you have been prescribed an opioid (such as hydrocodone, oxycodone or morphine), it is critical to understand the possible side effects and risks of opioid pain medications. Even when taken as directed, opioids can have several side effects including: Tolerance, meaning you might need to take more of a medication for the same pain relief. Nausea, vomiting and/or constipation. Sleepiness, dizziness, dry mouth, confusion, depression or itching. Physical dependence, meaning you have withdrawal symptoms when a medication is stopped, can develop within a few days. KNOW YOUR RESPONSIBILITIES It is important to know exactly how much and how often to take the opioid pain medications you are prescribed. Never take opioids in higher amounts or more often than prescribed. Do not combine opioids with alcohol or other drugs that cause drowsiness, such as benzodiazepines, also known as benzos, including diazepam and alprazolam, muscle relaxants or sleep aids. Never sell or share prescription opioids. This is illegal. Store opioids in a secure place and out of reach of others (including children, family, friends and visitors). The last page of this document has been signed and retained as a CHART COPY. Signatures Patient Education Materials Acute Back Pain, Adult Medication Leaflets My discharge plan and instructions have been reviewed and explained to me and I,PATY SHEIKH understand my current condition and have read and understand these discharge instructions. I have received a written copy of the plan/instructions. If I have questions, I am aware that I should contact my doctor. Patient/Corporate Quality Manager Signature: Date/Time: Relationship to Patient: Witness Name/Signature: Date/Time: [facility] 04-06-2022 Hospital Discharg e instructions Patient Education 04/06/2022 17:04:52 Acute Back Pain, Adult Acute Back Pain, Adult Acute back pain is sudden and usually short-lived. It is often caused by an injury to the muscles and tissues in the back. The injury may result from: A muscle or ligament getting overstretched or torn (strained). Ligaments are tissues that connect bones to each other. Lifting something improperly can cause a back strain. Wear and tear (degeneration) of the spinal disks. Spinal disks are circular tissue that provides cushioning between the bones of the spine (vertebrae). Twisting motions, such as while playing sports or doing yard work. A hit to the back. Arthritis. You may have a physical exam, lab tests, and imaging tests to find the cause of your pain. Acute back pain usually goes away with rest and home care. Follow these instructions at home: Managing pain, stiffness, and swelling Take pcio-ntw-grhanry and prescription medicines only as told by your health care provider. Your health care provider may recommend applying ice during the first 24 48 hours after your pain starts. To do this: ?Put ice in a plastic bag. ?Place a towel between your skin and the bag. ?Leave the ice on for 20 minutes, 2 3 times a day. If directed, apply heat to the affected area as often as told by your health care provider. Use the heat source that your health care provider recommends, such as a moist heat pack or a heating pad. ?Place a towel between your skin and the heat source. ?Leave the heat on for 20 30 minutes. ?Remove the heat if your skin turns bright red. This is especially important if you are unable to feel pain, heat, or cold. You have a greater risk of getting burned. Activity Do not stay in bed. Staying in bed for more than 1 2 days can delay your recovery. Sit up and stand up straight. Avoid leaning forward when you sit, or hunching over when you stand. ?If you work at a desk, sit close to it so you do not need to lean over. Keep your chin tucked in. Keep your neck drawn back, and keep your elbows bent at a right angle. Your arms should look like the letter L. ?Sit high and close to the steering wheel when you drive. Add lower back (lumbar) support to your car seat, if needed. Take short walks on even surfaces as soon as you are able. Try to increase the length of time you walk each day. Do not sit, drive, or passenger interline clerk one place for more than 30 minutes at a time. Sitting or standing for long periods of time can put stress on your back. Do not drive or use heavy machinery while taking prescription pain medicine. Use proper lifting techniques. When you bend and lift, use positions that put less stress on your back: ?Bend your knees. ?Keep the load close to your body. ?Avoid twisting. Exercise regularly as told by your health care provider. Exercising helps your back heal faster and helps prevent back injuries by keeping muscles strong and flexible. Work with a physical therapist to make a safe exercise program, as recommended by your health care provider. Do any exercises as told by your physical therapist. Lifestyle Maintain a healthy weight. Extra weight puts stress on your back and makes it difficult to have good posture. Avoid activities or situations that make you feel anxious or stressed. Stress and anxiety increase muscle tension and can make back pain worse. Learn ways to manage anxiety and stress, such as through exercise. General instructions Sleep on a firm mattress in a comfortable position. Try lying on your side with your knees slightly bent. If you lie on your back, put a pillow under your knees. Follow your treatment plan as told by your health care provider. This may include: ?Cognitive or behavioral therapy. ?Acupuncture or massage therapy. ?Meditation or yoga. Contact a health care provider if: You have pain that is not relieved with rest or medicine. You have increasing pain going down into your legs or buttocks. Your pain does not improve after 2 weeks. You have pain at night. You lose weight without trying. You have a fever or chills. Get help right away if: You develop new bowel or bladder control problems. You have unusual weakness or numbness in your arms or legs. You develop nausea or vomiting. You develop abdominal pain. You feel faint. Summary Acute back pain is sudden and usually short-lived. Use proper lifting techniques. When you bend and lift, use positions that put less stress on your back. Take vjtd-pyb-fowhjwe and prescription medicines and apply heat or ice as directed by your health care provider. This information is not intended to replace advice given to you by your health care provider. Make sure you discuss any questions you have with your health care provider. Document Released: 05/12/2006 Document Revised: 08/31/2019 Document Reviewed: 12/24/2017 [employer] Patient Education 2020 [employer]. Follow Up Care 04/05/2022 01:51:06 With:ZOIE CANO DO Address: [address] [place] [phone] When:5 to 7 days Comments:Follow up with primary care physician as an outpatient. With:ELLIS FULTON, CHRISTOPHER Kimbrough, Neurosurgery Address: [address] [place] [address] [place] [address] [phone] When:Within 4 Week(s) Comments:Follow-up with neurosurgery as an outpatient. Call to make an appointment. [facility] 04-06-2022 Note Discharge Instructions Thank you for allowing [facility] to assist you with your healthcare needs. The following is important discharge information regarding your hospital visit. Your Care Team ZOIE CANO DO Your Diagnosis HTN (hypertension) What to do next Instructions From Your Doctor You were treated for back pain and leg pain. Medication for baclofen was sent to your pharmacy. Follow with your primary care physician and the neurosurgeon as an outpatient. Call your doctor or present to the ER for any new or worsening symptoms. Scheduled Follow-Up Appointments Appointment Type When With Where Contact InformationPT Treatment - [facility] 04/08/2022 02:30 PM [facility] PT Treatment - [facility] 04/10/2022 02:30 PM EST [facility] PT Treatment - [facility] 04/15/2022 02:30 PM EST [facility] PT Treatment - [facility] 04/17/2022 01:00 PM [facility] PT Treatment - [facility] 04/22/2022 01:00 PM [facility] PT Treatment - [facility] 04/25/2022 01:00 PM EST [facility] 08/26/2022 10:30 AM EDT ZOIE CANO DO [facility] [address] [place] [address] Follow Up Appointments Follow Up with ZOIE CANO DO When Within 5 to 7 days Why: Follow up with primary care physician as an outpatient. Where: [address] [phone] Follow Up with ELLIS FULTON, CHRISTOPHER Kimbrough, Neurosurgery When In 4 weeks Why: Follow-up with neurosurgery as an outpatient. Call to make an appointment. Where: [address] [facility] [place] [address]- [phone] The Following Activity and Diet Have Been Ordered for You Discharge Activity - Ordered -- Activity As Tolerated, 04/06/22 15:24:00 EST Discharge Diet - Ordered -- No changes were made to your diet during your hospital stay. Please resume your pre hospitalization diet on discharge., 04/06/22 15:24:00 EST The Following Equipment Has Been Ordered for You No qualifying data available. The Following Treatments Have Been Ordered for You Discharge Labs No qualifying data available. Discharge Radiology No qualifying data available. Other Therapies No qualifying data available. Post Acute Orders No qualifying data available. Someone Will Contact You Regarding These Home Health Referrals No home referrals have been ordered for you. No one will call you. Allergies Biofreeze Lipitor (Joint pain) Tagamet (Stomach ache) Zetia (Numbness of finger) fenofibrate (Joint pain) hydrALAZINE sulfa drugs Medications Please ask your primary doctor or pharmacist before taking any other medication not listed, including over the counter drugs, herbal medications, vitamins and or supplements as they may interact with your home medications. What How Much When Why Instructions Last Dose New baclofen (baclofen 5 mg oral tablet) 1 tab(s) by mouth Three (3) times a day as needed for Spasm Duration: 7 Days Pickup at [facility]/pharmacy #[id number] Unchanged acetaminophen (acetaminophen 500 mg oral capsule) 1 cap by mouth Every 6 hours Unchanged aspirin (aspirin 81 mg oral tablet, chewable) 1 Chewed Two (2) times a day Unchanged calcium carbonate (Tums Ultra 1000 mg oral tablet, chewable) 1 tab(s) Chewed Two (2) times a day as needed for as needed for dyspepsia Unchanged lansoprazole (lansoprazole 30 mg oral delayed release capsule) 1 cap by mouth Once a day Unchanged mometasone topical (mometasone 0.1% topical ointment) 1 application Topical Every day Unchanged multivitamin (Multivitamin) 1 tab(s) by mouth Two (2) times a day OrthoMune Unchanged oxyCODONE (oxyCODONE 5 mg oral tablet ( IMMEDIATE release )) 2 tab(s) by mouth Every 6 hours as needed for as needed for pain Unchanged topiramate (topiramate 25 mg oral tablet) 1 tab(s) by mouth Once a day Unchanged valsartan (valsartan 40 mg oral tablet) 0.5 tab by mouth Once a day HTN (hypertension) Pharmacy Information [facility]/pharmacy #[id number]: [address], [place] [phone] Please take this list to your next doctor s visit. Bring all medications you take, including over the counter medications, herbals and other supplements with you to your doctor s visit. Patients and families are reminded to discard old lists and to update any records with all medication providers or retail pharmacies. Education Materials Acute Back Pain, Adult Acute back pain is sudden and usually short-lived. It is often caused by an injury to the muscles and tissues in the back. The injury may result from: A muscle or ligament getting overstretched or torn (strained). Ligaments are tissues that connect bones to each other. Lifting something improperly can cause a back strain. Wear and tear (degeneration) of the spinal disks. Spinal disks are circular tissue that provides cushioning between the bones of the spine (vertebrae). Twisting motions, such as while playing sports or doing yard work. A hit to the back. Arthritis. You may have a physical exam, lab tests, and imaging tests to find the cause of your pain. Acute back pain usually goes away with rest and home care. Follow these instructions at home: Managing pain, stiffness, and swelling Take igvn-egi-jnetbgy and prescription medicines only as told by your health care provider. Your health care provider may recommend applying ice during the first 24 48 hours after your pain starts. To do this: ? Put ice in a plastic bag. ? Place a towel between your skin and the bag. ? Leave the ice on for 20 minutes, 2 3 times a day. If directed, apply heat to the affected area as often as told by your health care provider. Use the heat source that your health care provider recommends, such as a moist heat pack or a heating pad. ? Place a towel between your skin and the heat source. ? Leave the heat on for 20 30 minutes. ? Remove the heat if your skin turns bright red. This is especially important if you are unable to feel pain, heat, or cold. You have a greater risk of getting burned. Activity Do not stay in bed. Staying in bed for more than 1 2 days can delay your recovery. Sit up and stand up straight. Avoid leaning forward when you sit, or hunching over when you stand. ? If you work at a desk, sit close to it so you do not need to lean over. Keep your chin tucked in. Keep your neck drawn back, and keep your elbows bent at a right angle. Your arms should look like the letter L. ? Sit high and close to the steering wheel when you drive. Add lower back (lumbar) support to your car seat, if needed. Take short walks on even surfaces as soon as you are able. Try to increase the length of time you walk each day. Do not sit, drive, or passenger interline clerk one place for more than 30 minutes at a time. Sitting or standing for long periods of time can put stress on your back. Do not drive or use heavy machinery while taking prescription pain medicine. Use proper lifting techniques. When you bend and lift, use positions that put less stress on your back: ? Bend your knees. ? Keep the load close to your body. ? Avoid twisting. Exercise regularly as told by your health care provider. Exercising helps your back heal faster and helps prevent back injuries by keeping muscles strong and flexible. Work with a physical therapist to make a safe exercise program, as recommended by your health care provider. Do any exercises as told by your physical therapist. Lifestyle Maintain a healthy weight. Extra weight puts stress on your back and makes it difficult to have good posture. Avoid activities or situations that make you feel anxious or stressed. Stress and anxiety increase muscle tension and can make back pain worse. Learn ways to manage anxiety and stress, such as through exercise. General instructions Sleep on a firm mattress in a comfortable position. Try lying on your side with your knees slightly bent. If you lie on your back, put a pillow under your knees. Follow your treatment plan as told by your health care provider. This may include: ? Cognitive or behavioral therapy. ? Acupuncture or massage therapy. ? Meditation or yoga. Contact a health care provider if: You have pain that is not relieved with rest or medicine. You have increasing pain going down into your legs or buttocks. Your pain does not improve after 2 weeks. You have pain at night. You lose weight without trying. You have a fever or chills. Get help right away if: You develop new bowel or bladder control problems. You have unusual weakness or numbness in your arms or legs. You develop nausea or vomiting. You develop abdominal pain. You feel faint. Summary Acute back pain is sudden and usually short-lived. Use proper lifting techniques. When you bend and lift, use positions that put less stress on your back. Take onir-hkh-ezhsibk and prescription medicines and apply heat or ice as directed by your health care provider. This information is not intended to replace advice given to you by your health care provider. Make sure you discuss any questions you have with your health care provider. Document Released: 05/12/2006 Document Revised: 08/31/2019 Document Reviewed: 12/24/2017 [employer] Patient Education 2020 [employer] Additional Information VACCINATE! IT SAVES LIVES! Members of the community who have not yet received the COVID-19 vaccine and would like to receive it can visit one of [facility] vaccine clinics. There are many vaccine clinic locations within the [facility]. For locations and available times, please visit [email or web address].o o[place].gov/. It is important to note that some COVID mobile vaccine clinics are held outdoors and may be canceled in rainy or stormy conditions. To learn more about pediatric vaccinations (ages 5-11), we invite you to visit the [facility] webpage. [email or web address]/p [email or web address] [email or web address]-Frpttickw.[email or web address] To learn more about the COVID-19 vaccine, we invite you to visit the [facility] website for a list of frequently asked questions. [email or web address]/assets/[email or web address] [email or web address]-[email or web address]-[email or web address] requently_[email or web address] [facility] Patient Portal Access Instructions: Stay connected with your healthcare team and access your personal medical information anytime with the [facility] Patient Portal.If you would like a full copy of your medical records, please contact the [facility] Medical Records Department, Friday through Friday between 8a.m. and 4:30p.m. Please follow the directions below to access the portal: 1.Access the email account you provided upon registration to the [facility].2.Look for an invitation email from [facility].3.Open the email and access the invitation link: Accept Invitation to [facility]4.Fill in the required calixto to create your account. Sign into www.[employer] with your username and password that you created in the above steps to stay up to date. You can then view a summary of results, a summary of your visits, and the ability to download your summaries to your computer or send the information securely to a physician. Remember that your healthcare information is confidential, so carefully consider who you will allow to register on the [facility] Patient Portal for access to your information. You can also access the [facility] Patient Portal on the [employer] areli. Simply click on Health Records under Health Data and then click on the [facility] logo. HOW TO SAFELY DISPOSE OF PRESCRIPTION MEDICATIONS Please use one of the following methods to safely dispose of your unused medications. 1.Use a drug disposal kit: the drug disposal pouch allows you to safely discard your old and unused drugs. Ask your nurse to give you one when you are discharged.2.Visit a local take-back location: Many local pharmacies and police departments have programs that collect old and unwanted prescription drugs. Call your local pharmacy or go to http://bit.[facility]/0F0Ty6u to find one close to you.3.Make use of household items: Use cat litter or old coffee grounds to dispose medications if other options are not available. Mix your drugs with these household products, seal them in an airtight container and throw it into the garbage. Call [facility]: [phone] to be sure your drugs can be disposed of in this way. Some medicines may require a different approach.4.Never flush your medications down the toilet. IF YOU HAVE BEEN PRESCRIBED AN OPIOID FOR PAIN If you have been prescribed an opioid (such as hydrocodone, oxycodone or morphine), it is critical to understand the possible side effects and risks of opioid pain medications. Even when taken as directed, opioids can have several side effects including: Tolerance, meaning you might need to take more of a medication for the same pain relief. Nausea, vomiting and/or constipation. Sleepiness, dizziness, dry mouth, confusion, depression or itching. Physical dependence, meaning you have withdrawal symptoms when a medication is stopped, can develop within a few days. KNOW YOUR RESPONSIBILITIES It is important to know exactly how much and how often to take the opioid pain medications you are prescribed. Never take opioids in higher amounts or more often than prescribed. Do not combine opioids with alcohol or other drugs that cause drowsiness, such as benzodiazepines, also known as benzos, including diazepam and alprazolam, muscle relaxants or sleep aids. Never sell or share prescription opioids. This is illegal. Store opioids in a secure place and out of reach of others (including children, family, friends and visitors). The last page of this document has been signed and retained as a CHART COPY. Signatures Patient Education Materials Acute Back Pain, Adult Medication Leaflets My discharge plan and instructions have been reviewed and explained to me and I,PATY SHEIKH understand my current condition and have read and understand these discharge instructions. I have received a written copy of the plan/instructions. If I have questions, I am aware that I should contact my doctor. Patient/Corporate Quality Manager Signature: Date/Time: Relationship to Patient: Witness Name/Signature: Date/Time: [facility] 04-06-2022 Discharge summary Date of Service April 06, 2022 Discharge Diagnosis Acute on chronic back pain Left lower extremity edema Left hip osteoarthritis Chronic left lower extremity weakness Urinary retention Hospital Course 76-year-old male with past medical history significant for left hip osteoarthritis status post minimally invasive direct anterior hip replacement 3 weeks ago, non-Hodgkin's lymphoma, coronary artery disease, hypertension, cerebral amyloid angiopathy who initially presented with acute on chronic right lower back pain and concern for urinary retention. Patient had left hip replacement approximately 2 weeks prior to presentation and has been working with physical therapy since that point ini time. Over the 2-3 days prior to presentation patient had been experiencing increased right lower back pain and muscle spasms. Patient was also initially experiencing urinary retention at presentation which resolved. Patient seen by neurosurgery at presentation. MRI lumbar spine demonstrated severe central canal and severe right foraminal stenosis at L4-5, moderately severe central canal and moderate right foraminal stenosis at L3-L4, and moderate central canal stenosis at L5-S1. No surgical intervention required and patient can follow with neurosurgery as an outpatient. Patient was initially trialed on baclofen and Toradol. Patient felt that the Toradol didn't help and that the baclofen made him too drowsy. He was then trialed on tizanidine and Valium. At the time of discharge patient requested to go home on a lower dose of baclofen as he felt this helped him the most. Patient was discharged in improved condition and is to follow with primary care doctor and neurosurgery as an outpatient. Allergies Biofreeze Lipitor (Joint pain) Tagamet (Stomach ache) Zetia (Numbness of finger) fenofibrate (Joint pain) hydrALAZINE sulfa drugs Procedures No procedures Consults Consult to Physician - Ordered -- 04/05/22 2:32:00 ELLY COHEN MICHAEL DO, Routine, Right lower back pain Imaging Results and Diagnostics MRI Spine Lumbar w/ + w/o Contrast Result Date: April 05, 2022 Verified By: ZOIE WALKER MD CLINICAL STATEMENT: IMPRESSION: 1. Severe central canal and severe right foraminal stenosis at L4-5.2. Moderately severe central canal and moderate right foraminal stenosis atL3-L4.3. Moderate central canal stenosis at L5-S1. XR Hip Minimum 2 Views Right Result Date: April 05, 2022 Verified By: YOVANNY FULTON, JONATHAN Zaman CLINICAL STATEMENT: IMPRESSION: Mild osteoarthritis. No acute abnormality. CT abdomen/pelvis IMPRESSION: No acute inflammatory process within the abdomen/pelvis. Marked sigmoid diverticulosis without diverticulitis. Unchanged 1.7 cm hypodense left midpole lesion. Renal ultrasound is suggested for further evaluation. Porcelain gallbladder. 2.8 cm infrarenal abdominal aortic aneurysm. Recommend follow-up every 5 years. Physical Exam Vitals and Measurements T: 36.4 C (Oral) TMIN: 36.4 C (Oral) TMAX: 37.0 C (Oral) HR: 58(Apical) RR: 15 BP: 118/72 SpO2: 95% Weight Dosing Weight: 100 kg (04/05/22) General Appearance: Alert, oriented Head: Normocephalic, atraumatic EENT: PERRLA, EOMI. Mucus membranes moist Neck: Supple, no JVD, no thyromegaly Cardiac: Regular rate and rhythm. Normal S1/S2. No murmurs, rubs, gallops appreciated. Lungs: Lungs clear to auscultation bilaterally. No rhonchi, wheezing, or rales appreciated. Abdomen: Soft, nontender, nondistended. BS *4. Musculoskeletal: Strength 5/5 bilaterally in upper extremities and right lower extremity. Chronic 3/5 in left lower extremity Extremities: No LE edema. Neurological: AO*3, CN 2-12 intact. Skin: No excoriations, lacerations, rash, or erythema Psychiatric: Normal affect Pending Labs and Studies No pending labs or studies Code Status Code Status - Ordered -- 04/05/22 2:32:00 EST, Full Code, Constant Order Admission Date April 05, 2022 Discharge Date April 06, 2022 Patient Instructions You were treated for back pain and leg pain. Medication for baclofen was sent to your pharmacy. Follow with your primary care physician and the neurosurgeon as an outpatient. Call your doctor or present to the ER for any new or worsening symptoms. Medications New Prescription baclofen (baclofen 5 mg oral tablet)1 tab(s) by mouth three (3) times a day as needed Spasm for 7 Days. Refills: 0. Unchanged acetaminophen (acetaminophen 500 mg oral capsule)1 cap by mouth every 6 hours. aspirin (aspirin 81 mg oral tablet, chewable)1 Chewed two (2) times a day. calcium carbonate (Tums Ultra 1000 mg oral tablet, chewable)1 tab(s) Chewed two (2) times a day as needed as needed for dyspepsia. lansoprazole (lansoprazole 30 mg oral delayed release capsule)1 cap by mouth once a day. mometasone topical (mometasone 0.1% topical ointment)1 application Topical every day. Refills: 3. multivitamin (Multivitamin)1 tab(s) by mouth two (2) times a day. OrthoMune. oxyCODONE (oxyCODONE 5 mg oral tablet ( IMMEDIATE release ))2 tab(s) by mouth every 6 hours as needed as needed for pain. topiramate (topiramate 25 mg oral tablet)1 tab(s) by mouth once a day. valsartan (valsartan 40 mg oral tablet)0.5 tab by mouth once a day. Refills: 3. Follow Up Follow Up with ZOIE CANO DO When Within 5 to 7 days Why: Follow up with primary care physician as an outpatient. Where: [address], [place] [address]- [phone] Follow Up with ELLIS FULTON, CHRISTOPHER Kimbrough, Neurosurgery When In 4 weeks Why: Follow-up with neurosurgery as an outpatient. Call to make an appointment. Where: [address] [facility] [place] [address] [phone] Discharge Diet Discharge Diet - Ordered -- No changes were made to your diet during your hospital stay. Please resume your pre hospitalization diet on discharge., 04/06/22 15:24:00 EST Discharge Activity Discharge Activity - Ordered -- Activity As Tolerated, 04/06/22 15:24:00 EST Condition on Discharge Improved Discharge Disposition Home Information Provided To Patient Time Spent >30 minutes Digitally Signed by EDWARD WHITE MD on 04/06/2022 11:05 PM [facility] 04-06-2022 Neurological surgery Progress note Date of Service 04/06/2022 Chief Complaint Back pain and back spasms Split/shared visit with Dr. Sanabria This is a 76-year-old male, who was seen at [facility] emergency department 04/04/2022 with complaints of right lower back pain and spasms. He states he recently had a hip replacement performed proximately 2 weeks ago. He states that he was doing well with his recovery, but since Monday 04/02, he has had increasing back pain and spasms. He states he was unable to get off of the toilet, due to the severe spasms and pain. He states he has been participating with therapy for his hip, and has been using a walker to mobilize, and is unsure if this caused aggravation to his back. He states he has had chronic back problems in the past. In addition, he was having complaints of urinary retention and difficulty starting his stream over the last couple of weeks. It seems that the urinary retention started after his hip surgery. He did have a postvoid residual of 250 cc at [facility]. Due to the back pain, urinary difficulty, he was transferred to the emergency department for further evaluation by neurosurgery. MRI of the lumbar spine demonstrated disc bulging L3-S1 with severe central canal stenosis and severe right foraminal stenosis L4-5, moderately severe central canal and moderate right foraminal stenosis L3-L4 and moderate central canal stenosis at L5-S1. These findings did not demonstrate any urgent surgical need. Therefore he was admitted and treated with Toradol and baclofen. Patient does state he felt drowsy on those medications, therefore they were discontinued, and he was started on tizanidine 2 mg 3 times daily as needed. He states the other medications did help with his pain and muscle spasms, but he did not like the way they made him feel. He states that tizanidine does help with the muscle spasms. Feels as though his pain is under better control than it was at time of admission. He states he has been getting up and mobilizing a little bit more than he had been. He states he is able to walk into the bathroom and get on the toilet without severe pain. Objective Vitals and Measurements T: 36.4 C (Oral) TMIN: 36.4 C (Oral) TMAX: 37.0 C (Oral) HR: 50(Apical) RR: 18 BP: 159/89 SpO2: 96% Intake and Output 7AM Yesterday to 7AM Today Intake and Output (Last 24 hours) Intake Administration Information 1600.00 Oral Intake 1510.00 Output Urine Voided 2500.00 Stool Count 1.00 Total Summary Total Intake 3110.00 Total Output 2500.00 Fluid Balance 610.00 Physical Exam General Appearance: This patient is well-developed and well nourished, and appears stated age. No acute distress. Head: Normocephalic, Atraumatic EENT: Mucous membranes moist. Cardiac: S1 and S2 heard without murmur, rub, or gallop. Regular rate and rhythm. Lungs: Lungs clear. Respirations easy. No shortness of breath noted. Abdomen: BSP x 4. Abd soft, nontender, nondistended. Musculoskeletal: Moves all 4 ext without difficulty. Recent left hip replacement. Extremities: Bilateral pedal pulses palpable. Left leg edema since surgery. Neurological: Awake, alert, and oriented x3. Moves all 4 extremities without difficulty. Denies new numbness or tingling in his lower extremities. He states he has had numbness in his left leg since his hip replacement. Dorsiflexion and plantar flexion are strong. He is able to lift both legs off the bed without difficulty. He denies pain shooting into his legs. He states majority of his pain stays in his back, he does complain of muscle spasms. Skin: [place], warm, and dry. Psychiatric: Mood stable. Cooperative. Weight Dosing Weight: 100 kg (04/05/22) Medications Medications (12) Active Scheduled: (5) aspirin 81 mg Chewable 81 mg 1 tab(s), Chewed, BID heparin 5,000 units/mL (1 mL) vial 5,000 unit(s) 1 mL, Subcutaneous, q8h losartan 50 mg tablet 50 mg 1 tab(s), Oral, qDay pantoprazole 40 mg EC tablet 40 mg 1 tab(s), Oral, qDayAC topiramate 25 mg Tablet 25 mg 1 tab(s), Oral, qDay Continuous: (1) NS (0.9% nacl) 1,000 mL 1,000 mL, Intravenous, 100 mL/hr PRN: (6) calcium carbonate 500 mg Chewable 500 mg 1 tab(s), Chewed, TID hydromorphone 1 mg/mL (1mL) INJ 1 mg 1 mL, Intramuscular, q4h melatonin 3 mg tablet 3 mg 1 tab(s), Oral, qHS morphine 2 mg/mL 1 mL syringe 2 mg 1 mL, IV Push, q2h ondansetron 2 mg/ 1 mL 2 mL INJ 4 mg 2 mL, IV Push, q6h tiZANidine 2 mg tablet 2 mg 1 tab(s), Oral, TID Lab Results 04/06 04:57 WBC: 4.8 Hgb: 11.9 L Hct: 36.4 L Platelet: 228 Neutrophil %: 69.0 Glucose Level: 108 Sodium Level: 142 Potassium Level: 4.0 BUN: 23.0 H Creatinine Lvl (s): 0.93 04/05 03:14 WBC: 6.6 Hgb: 12.7 L Hct: 38.1 L Platelet: 244 Neutrophil %: 78.4 H Glucose Level: 119 H Sodium Level: 140 Potassium Level: 4.1 BUN: 30.0 H Creatinine Lvl (s): 1.05 EKG EKG - Completed -- 04/05/22 2:32:00 EST Assessment/Plan Back pain and back spasms: -MRI of the lumbar spine was obtained yesterday. It demonstrated disc bulging L3-S1 with severe central canal stenosis and severe right foraminal stenosis L4-5, moderately severe central canal and moderate right foraminal stenosis L3-L4 and moderate central canal stenosis at L5-S1. -No urgent surgical intervention is needed at this time. -He will follow-up with Dr. Corral as an outpatient for discussion of possible surgery in the future if he has continued back with associated leg pain. Currently, the patient does not have pain in his legs. He also denies new numbness or tingling in his legs. He states he has had numbness in his left leg since his hip surgery. -Was on tizanidine 2 mg 3 times daily as needed for muscle spasms. We increase tizanidine to 4mg, but still not completely taking away the spasm. He was on baclofen and Toradol yesterday, but felt it made him drowsy and therefore he was changed to tizanidine. He does not feel the tizanidine is helping sufficiently enough. Discussed with . We will discontinue tizanidine and start Valium 5 mg 3 times daily. He can follow-up with neurosurgery as an outpatient. Dr. Corral's number will be provided. Please not hesitate to contact the neurosurgery team with any questions or concerns. Time Spent 20 min Digitally Signed by STEVEN ANTOHNY on 04/06/2022 11:34 AM [facility] 04-05-2022 Neurological surgery Consult note Date of Service 04/05/2022 Split shared consultation with Dr Sanabria Reason for Consultation Right lower back pain Referring Physician Dr Leahy History of Present Illness Paty is a 76-year-old male with a past medical history significant for non-Hodgkin's lymphoma, BPH, coronary artery disease, AL s/p stenting 2010 on aspirin, chronic low back pain (40 yrs), and recent spontaneous subarachnoid hemorrhage July 2021 with concern for possible amyloid angiopathy who presented to [facility] emergency department 04/04/2022 with complaints of right lower back pain and spasms. Patient recently underwent left hip replacement at [facility] 2 weeks ago, and over the last 2 weeks has been experiencing increased back spasms. Has history of lumbar disc herniations without surgical repair and has had experience back spasms deviously, however when he attempted to stand from the toilet prior to admission he had significantly increased right low back pain and spasming that prompted him to seek medical attention. Patient indicates he has been using a walker at home since his hip surgery, and has also rearranges living arrangements. Indicates he is sleeping in a bed that he typically does not sleep in, with a new mattress also and feels that some of this new set up is contributing to his worsening muscle spasms over the last 2 weeks, and this is all different than his typical routine and living arrangements/layout. Patient also describes having urinary retention, and difficulty starting his stream over the last 2 weeks, and again since his hip surgery. He does not feel that he is adequately emptying his bladder with urination. Denies any urinary incontinence or bowel incontinence. Denies saddle anesthesia, or loss of sensation in genitalia or rectum. States on occasion he does have some burning or pain with urination but this has not been persistent. At [facility], found to be retaining urine with postvoid residual of 250 mL. Describes having some chronic weakness in the left lower extremity due to a prior groin surgery and resultant chronic pain. Patient also explains he has had edema of his left lower extremity and some tingling in this leg over the 2 weeks following his hip surgery. He denies any new or worsening paresthesias or lower extremity weakness more recently or prompting his presentation to the ED. 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 Due to concern of intractable back pain and urinary retention he was transferred from [facility] to [facility] for further evaluation and work-up of his symptoms, including neurosurgical review. Patient admitted by hospitalist physicians. A lumbar spine MRI has been ordered. Patient denies recent falls. Reports low back pain that is midline and extends to the right flank; per patient pain does not radiate into his buttocks or down the legs. Denies acute thoracic or cervical pain. Review of Systems GENERAL: Denies any recent illnesses, infections, fever, chills, or night sweats. No recent changes in appetite. SKIN: Denies skin complaints. Denies pruritus or rashes. HEENT: Denies headaches, or dizziness. Denies acute changes in visual acuity. Denies diplopia or blurred vision. Denies earaches, changes in hearing, or otorrhea. Denies rhinorrhea or sore throat. MS: See HPI. RESPIRATORY: Denies shortness of breath, difficulty breathing or cough. CARDIOVASCULAR: Denies chest pain, pressure, palpitations. GI: Denies abdominal pain, nausea, vomiting. Denies changes in bowel movements/habits. : See HPI. NEUROLOGICAL: See HPI. Physical Exam Vitals and Measurements T: 36.9 C (Oral) TMIN: 36.5 C (Oral) TMAX: 36.9 C (Oral) HR: 78(Apical) RR: 16 BP: 123/78 SpO2: 96% HT: 177.8 cm WT: 100 kg BMI: 31.63 Weight Dosing Weight: 100 kg (04/05/22) General survey: 76-year-old male who appears congruent with his age. He is seen sitting up at the side of the bed, dangling his feet. He was able to transfer himself from bedside commode to the bed, with use of the walker. Patient is cooperative with exam. He is in no acute distress. Skin: Skin is warm and dry. HEENT: Head is normocephalic and atraumatic. Extraocular movements are intact; PERRL. No otorrhea or rhinorrhea. Oral mucosa is pink and moist. MS: Neck is supple. Has tenderness with palpation in the lumbar region, and over right flank area. Cardiovascular: Regular heart rate and rhythm. S1-S2 present. + Edema of the entire left lower extremity, 1+. No edema of the right lower extremity. Respiratory: Respirations even and unlabored. Lungs are clear bilaterally. Abdomen: Abdomen is soft, nontender and nondistended with active bowel sounds 4 quadrants. He is not distended or tender over the bladder. : Patient voided in bedside commode, also has urinal at bedside with clear yellow urine present in it. Peripheral vascular: Extremities are warm and without edema. Radial and pedal pulses are 2+ and symmetric. Neurological: Patient is fully awake and alert. He is oriented appropriately. He follows commands briskly and accurately. He moves all 4 extremities independently. Equal motor strength of his bilateral upper extremities as well as the right lower extremity. Plantar and dorsi flexion are strong and equal, 5/5. He has some diffuse weakness of the left lower extremity especially with anterior tibialis, and difficulty elevating leg at the groin/hip. Patient states this is not a new finding, and has had difficulty lifting his left leg since his left groin surgery in 2002 which left him with chronic pain. Also with recent left hip replacement 2 weeks ago. Patient indicates light touch sensation is intact equally in both legs and feet. No clonus. Babinski reflexes are negative. Lab Results 04/05 03:14 WBC: 6.6 Hgb: 12.7 L Hct: 38.1 L Platelet: 244 Neutrophil %: 78.4 H Glucose Level: 119 H Sodium Level: 140 Potassium Level: 4.1 BUN: 30.0 H Creatinine Lvl (s): 1.05 Imaging Results and Diagnostics See HPI Assessment/Plan Acute on chronic intractable low back pain with muscle spasms 76-year-old male who presented to [facility] emergency department 03/1022 with complaints of right low back pain and muscle spasms which have been occurring over the last 2 weeks, but had significantly worsened when he attempted to stand up from the toilet prior to admission. Has had no recent falls, back injuries or trauma. Recently underwent a left hip replacement 2 weeks ago, and indicates that since that time he has had some edema and tingling in the left lower extremity, also with ongoing urinary retention. Abdomen pelvic CT showed some areas of spinal canal stenosis, but this was not well evaluated on this exam. He indicates history of chronic low back pain and known lumbar herniated disks. Denies any previous lumbar surgery. Patient was transferred from [facility] to [facility] for MRI imaging and neurosurgical review given his presenting symptoms. Dr Sanabria requested lumbar spine MRI to be performed stat, and to rule out significant canal stenosis or other acute pathology that would require urgent intervention. Patient indicates he is claustrophobic, therefore will be medicated with small dose of Valium prior to MRI testing. He is scheduled to go down to MRI department this morning. Further neurosurgical recommendations will be made once MRI has been completed. In the meantime, he has been made n.p.o.. Aspirin and Subcu heparin injections have been placed on hold until further determination of plan can be made, or if needing surgical intervention. If no surgical intervention is necessary, then these medications will be resumed and patient will be cleared for a diet. It is noted that patient has been started on baclofen by the primary team. If this is not effective for the patient, could try tizanidine 2 to 4 mg 3 times daily as needed for muscle spasms. 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 Coronary artery disease Family history of colon cancer Gastroesophageal reflux disease Groin pain, chronic, left Hip pain, bilateral History of myocardial infarction History of non-Hodgkin's lymphoma HTN (hypertension) Knee pain, bilateral Left flank pain Leukocytosis Memory changes Mixed hyperlipidemia Neck pain on right side Pre-op exam Primary osteoarthritis of left hip Renal lesion Right shoulder pain Screening for prostate cancer Well adult exam Historical Acute myocardial infarction Brain TIA Excessive cerumen in both ear canals Immunization due Pain in joint involving multiple sites Subarachnoid hemorrhage Procedure/Surgical History Screening colonoscopy: 12/24/18 Placement of stent: 2010 Excision Repair of right inguinal hernia Medications Inpatient baclofen, 10 mg= 1 tab(s), Oral, TID Cozaar, 50 mg= 1 tab(s), Oral, qDay Dilaudid, 1 mg= 1 mL, Intramuscular, q4h, PRN melatonin, 3 mg= 1 tab(s), Oral, qHS, PRN morphine, 2 mg= 1 mL, IV Push, q2h, PRN NS 1,000 mL, 1000 mL, Intravenous pantoprazole, 40 mg= 1 tab(s), Oral, qDayAC topiramate, 25 mg= 1 tab(s), Oral, qDay Tums, 500 mg= 1 tab(s), Chewed, TID, PRN Zofran, 4 mg= 2 mL, IV Push, q6h, PRN Home acetaminophen 500 mg oral capsule, 500 mg= 1 cap(s), Oral, q6hr Aspercreme with Lidocaine 4% topical cream, Topical, TID aspirin 81 mg oral tablet, chewable, 1, Chewed, BID lansoprazole 30 mg oral delayed release capsule, 30 mg= 1 cap(s), Oral, qDay mometasone 0.1% topical ointment, 1 areli, Topical, Daily, 3 refills Multivitamin, 1 tab(s), Oral, BID oxyCODONE 5 mg oral tablet ( IMMEDIATE release ), 10 mg= 2 tab(s), Oral, q6h, PRN topiramate 25 mg oral tablet, 25 mg= 1 tab(s), Oral, qDay Tums Ultra 1000 mg oral tablet, chewable, 1000 mg= 1 tab(s), Chewed, BID, PRN valsartan 40 mg oral tablet, 0.5 tab, Oral, qDay, 3 refills Allergies Biofreeze Lipitor (Joint pain) Tagamet (Stomach ache) Zetia (Numbness of finger) fenofibrate (Joint pain) hydrALAZINE sulfa drugs Social History Smoking Status - 02/09/2018 Never smoker Alcohol - Denies Alcohol Use, 02/09/2018 Use: Never., 03/23/2019 Employment/School Status: Retired., 07/13/2020 Exercise Days per week: 3-4 times/week., 07/13/2020 Home/Environment Domestic Concerns: None. Living situation: Home/Independent., 07/13/2020 Nutrition/Health Caffeine intake amount: tea 2 x weekly., 03/23/2019 Substance Abuse - Denies Substance Abuse, 02/09/2018 Use: Never., 03/23/2019 Tobacco Tobacco Use: Never (less than 100 in lifetime)., 03/23/2019 Family History Cancer: Mother and Brother. Diabetes mellitus: Mother and Sister. Immunizations pneumococcal 13-valent conjugate vaccine: 0 unknown unit (11/01/14) pneumococcal 23-valent vaccine(Pneumovax: 0 unknown unit (05/14/16) SARS-CoV-2 mRNA (tozinameran) vaccine: 0.5 unknown unit (09/02/20) SARS-CoV-2 mRNA (tozinameran) vaccine: 0.5 unknown unit (08/07/20) tetanus-diphtheria toxoids: 0.5 mL (03/24/20) zoster vaccine, inactivated: 0 unknown unit (03/24/20) Digitally Signed by AUGUSTO LICONA on 04/05/2022 11:19 AM Digitally Signed by SHONDA SANABRIA DO on 04/05/2022 06:32 PM [facility] 04-05-2022 Note Date of Service April 05, 2020 Chief Complaint Back pain Subjective 76-year-old male with past medical history significant for left hip osteoarthritis status post minimally invasive direct anterior hip replacement 3 weeks ago, non-Hodgkin's lymphoma, coronary artery disease, hypertension, cerebral amyloid angiopathy who initially presented with acute on chronic right lower back pain and urinary retention. See H&P completed earlier today for further details. Patient seen by neurosurgery at presentation. On evaluation today, patient he is he continues to have hip pain and back pain. He has chronic weakness in his left lower extremity. Patient also has chronic numbness in left lower extremity which is unchanged. He primarily came in for the increased right hip and back pain with spasms. Patient also notes increased left lower extremity swelling. There was initial concern for urinary retention however patient has been able to void since arrival. Objective Vitals and Measurements T: 36.6 C (Oral) TMIN: 36.5 C (Oral) TMAX: 36.9 C (Oral) HR: 84(Apical) RR: 16 BP: 129/86 SpO2: 95% HT: 177.8 cm WT: 100 kg BMI: 31.63 Intake and Output 7AM Yesterday to 7AM Today Intake and Output (Last 24 hours) Intake Oral Intake 1060.00 Administration Information 408.33 Output Urine Voided 2150.00 Stool Count 0.00 Total Summary Total Intake 1468.33 Total Output 2150.00 Fluid Balance -681.67 Physical Exam General Appearance: Alert, oriented Head: Normocephalic, atraumatic EENT: PERRLA, EOMI. Neck: Supple, no JVD Cardiac: Regular rate and rhythm. Normal S1/S2. No murmurs appreciated. Lungs: Lungs clear to auscultation bilaterally. No rhonchi, wheezing, or rales appreciated. Abdomen: Soft, nontender, nondistended. BS *4. Musculoskeletal: Strength 5/5 in right upper and lower extremity, 5/5 in left upper extremity, 3/5 in left lower extremity Extremities: No LE edema. Neurological: AO*3, CN 2-12 intact. Skin: No excoriations, lacerations Weight Dosing Weight: 100 kg (04/05/22) Medications Medications (13) Active Scheduled: (7) aspirin 81 mg Chewable 81 mg 1 tab(s), Chewed, BID baclofen 10 mg tablet 10 mg 1 tab(s), Oral, TID heparin 5,000 units/mL (1 mL) vial 5,000 unit(s) 1 mL, Subcutaneous, q8h ketorolac 15 mg/mL vial 15 mg 1 mL, IV Push, q6hr losartan 50 mg tablet 50 mg 1 tab(s), Oral, qDay pantoprazole 40 mg EC tablet 40 mg 1 tab(s), Oral, qDayAC topiramate 25 mg Tablet 25 mg 1 tab(s), Oral, qDay Continuous: (1) NS (0.9% nacl) 1,000 mL 1,000 mL, Intravenous, 100 mL/hr PRN: (5) calcium carbonate 500 mg Chewable 500 mg 1 tab(s), Chewed, TID hydromorphone 1 mg/mL (1mL) INJ 1 mg 1 mL, Intramuscular, q4h melatonin 3 mg tablet 3 mg 1 tab(s), Oral, qHS morphine 2 mg/mL 1 mL syringe 2 mg 1 mL, IV Push, q2h ondansetron 2 mg/ 1 mL 2 mL INJ 4 mg 2 mL, IV Push, q6h Lab Results 04/05 03:14 WBC: 6.6 Hgb: 12.7 L Hct: 38.1 L Platelet: 244 Neutrophil %: 78.4 H Glucose Level: 119 H Sodium Level: 140 Potassium Level: 4.1 BUN: 30.0 H Creatinine Lvl (s): 1.05 Assessment/Plan Acute on chronic back pain Left lower extremity edema Left hip osteoarthritis Chronic left lower extremity weakness Urinary retention Patient presents with acute on chronic right back pain and hip pain with spasms in the back. Patient seen by neurosurgery today and was started on pain medication occasions and muscle relaxers. MRI of the lumbar spine was completed. Of note, patient recently had left hip surgery completed 3 weeks ago and has been taking baby aspirin twice daily for DVT prophylaxis. He has had some increased left lower extremity edema since then. Lower extremity ultrasound preliminary report negative for superficial or deep venous thrombosis. Concern for urinary tension seems to have resolved. A bladder scan with postvoid residual was ordered. Digitally Signed by EDWARD WHITE MD on 04/05/2022 09:22 PM [facility] Acute on chronic right lower back pain: Right low back pain but worse on the day of presentation, extends to the right hip area MRI of lumbar spine without contrast ordered, x-ray right hip ordered IV morphine and IV Dilaudid as needed for pain depending on pain severity Neurosurgery consulted Left hip osteoarthritis: S/p left hip replacement couple of weeks ago Coronary artery disease: Resume home medication of aspirin Patient is allergic to statin and fenofibrate Urinary retention: Patient states he has been having problem with urination for the past couple of weeks since surgery Bladder scan done at [facility] showed 250 mL of urine Mcpherson catheter ordered, nurse reported removal protocol Could be due to BPH History of subarachnoid hemorrhage: Resolved subsequently Hypertension: Patient on losartan 50 mg daily History of focal seizures: Resume home medication of topiramate DVT prophylaxis: Bilateral SCDs Heparin 5000 units subcu every 8 hours Note was written using [employer] geological scout software. Some of the meaning of the words and sentences might have changed during geological scout, if there was ever some confusion about the meaning of some sentences, please do not hesitate to contact me. Future Appointments Appointment Date:04/08/2022 02:30:00 PM Scheduled Provider: Location:[facility] Appointment Type:PT [facility] Appointment Date:04/10/2022 02:30:00 PM Scheduled Provider: Location:[facility] Appointment Type:PT [facility] Appointment Date:04/15/2022 02:30:00 PM Scheduled Provider: Location:[facility] Appointment Type:PT [facility] Appointment Date:04/17/2022 01:00:00 PM Scheduled Provider: Location:[facility] Appointment Type:PT [facility] Appointment Date:04/22/2022 01:00:00 PM Scheduled Provider: Location:[facility] Appointment Type:PT [facility] Appointment Date:04/25/2022 01:00:00 PM Scheduled Provider: Location:[facility] Appointment Type:PT [facility] Appointment Date:08/26/2022 10:30:00 AM Scheduled Provider:ZOIE CANO DO Location:[facility] Appointment Type:PC OV Future Scheduled Tests Radiology* MRI Brain w/o Contrast 07/24/21 * US Renal 02/20/22 [facility] 11-11-2022 Note ORIGINAL INDICATION:ORDERING SYSTEM PROVIDED HISTORY: Reason for Exam: LOWER RIGHT BACK PAIN. URINARY RETENTION TECHNIQUE: MRI of the lumbar spine was performed without and with the administration of intravenous contrast, according to standard protocol. COMPARISON: CT abdomen and pelvis 04/04/2022 FINDINGS: ALIGNMENT: Trace retrolisthesis of L2 on L3 and L5 on S1. 6 mm degenerative anterolisthesis of L4 on L5. Mild lumbar rotary levoscoliosis noted. VERTEBRAE: No acute/recent fracture or significant chronic height loss. Modic type 2 endplate change involves L2-L3. multilevel anterior spinal degenerative enthesopathy changes most pronounced at L2 and L3. SPINAL CANAL: Overall reduced caliber of the spinal canal likely on the basis of congenitally short pedicles. DISCS: Moderately severe disc height loss involves L2-L3 and L5-S1. Mild height loss of L4-5 and to lesser extent L3-L4. Widespread disc desiccation. ENHANCEMENT: CONUS MEDULLARIS AND CAUDA EQUINA: The conus medullaris terminates at L1 and is normal. Buckling of the cauda equina on the basis of spinal canal stenosis. PARAVERTEBRAL SOFT TISSUES: Unremarkable. EVALUATION OF INDIVIDUAL LEVELS DEMONSTRATES: T12-L1: Small circumferential disc bulge eccentric to the right extraforaminal zone and mild facet arthrosis. No stenosis. L1-2: Bilateral, left greater than right facet arthrosis causes mild left lateral recess narrowing. No central canal or significant foraminal stenosis. L2-3: A small circumferential disc bulge and facet arthrosis causes mild bilateral lateral recess narrowing without central canal or significant foraminal stenosis. L3-4: A circumferential disc bulge eccentric to the left foraminal and extraforaminal zones, ligamentum flavum hypertrophy, facet arthrosis and a small central canal causes bilateral lateral recess narrowing, moderately severe central canal, moderate right and [id number] left foraminal stenosis. Disc may contact the extraforaminal exiting left L3 nerve root. Small right-sided facet joint effusion noted. L4-5: Circumferential disc bulge, disc uncovering, ligamentum flavum hypertrophy, moderate facet arthrosis, and a congenital small canal causes bilateral lateral recess narrowing, severe central canal, severe right and mild left foraminal stenosis. Small bilateral facet joint effusions are noted. L5-S1: Circumferential disc osteophyte bulge with superimposed small central protrusion, facet arthrosis, and a congenitally small canal causes left lateral recess narrowing, moderate central canal and mild bilateral foraminal stenosis LIMITED EVALUATION OF UPPER SACRUM AND SACROILIAC JOINTS: Degenerative changes of the bilateral sacroiliac joints. ADDITIONAL COMMENTS: The infrarenal abdominal aorta measures 2.8 cm IMPRESSION: 1. Severe central canal and severe right foraminal stenosis at L4-5. 2. Moderately severe central canal and moderate right foraminal stenosis at L3-L4. 3. Moderate central canal stenosis at L5-S1. Interpreted by: Zoie Walker MD Preliminary Report By: Zoie Walker MD Electronically signed By Zoie Walker MD Dictated Date: 04/05/2022 11:55:04 AM Prelim Date: 04/05/2022 12:15:42 PM Sign Date: 04/05/2022 12:15:42 PM Ordering Provider: SHONDA SANABRIA [id number] Neurological surgery Consult note Date of Service 04/05/2022 Split shared consultation with Dr Sanabria Reason for Consultation Right lower back pain Referring Physician Dr Leahy History of Present Illness Paty is a 76-year-old male with a past medical history significant for non- Hodgkin's lymphoma, BPH, coronary artery disease, AL s/p stenting 2010 on aspirin, chronic low back pain (40 yrs), and recent spontaneous subarachnoid hemorrhage July 2021 with concern for possible amyloid angiopathy who presented to [facility] emergency department 04/04/2022 with complaints of right lower back pain and spasms. Patient recently underwent left hip replacement at [facility] 2 weeks ago, and over the last 2 weeks has been experiencing increased back spasms. Has history of lumbar disc herniations without surgical repair and has had experience back spasms deviously, however when he attempted to stand from the toilet prior to admission he had significantly increased right low back pain andspasming that prompted him to seek medical attention. Patient indicates he has been using a walker at home since his hip surgery, and has also rearranges living arrangements. Indicates he is sleepingin a bed that he typically does not sleep in, with a new mattress also and feels that some of this new set up is contributing to his worsening muscle spasms over the last 2 weeks, and this is all different than his typical routine and living arrangements/layout. Patient also describes having urinary retention, and difficulty starting his stream over the last 2weeks, and again since his hip surgery. He does not feel that he is adequately emptying his bladderwith urination. Denies any urinary incontinence or bowel incontinence. Denies saddle anesthesia, orloss of sensation in genitalia or rectum. States on occasion he does have some burning or pain withurination but this has not been persistent. At [facility], found to be retaining urine with postvoid residual of 250 mL. Describes having some chronic weakness in the left lower extremity due to a prior groin surgery andresultant chronic pain. Patient also explains he has had edema of his left lower extremity and sometingling in this leg over the 2 weeks following his hip surgery. He denies any new or worsening paresthesias or lower extremity weakness more recently or prompting his presentation to the ED. 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 Due to concern of intractable back pain and urinary retention he was transferred from [facility] to [facility] for further evaluation and work-up of his symptoms, including neurosurgical review. Patient admitted by hospitalist physicians. A lumbar spine MRI has been ordered. Patient denies recent falls. Reports low back pain that is midline and extends to the right flank; per patient pain does not radiate into his buttocks or down the legs. Denies acute thoracic or cervical pain. Review of Systems GENERAL: Denies any recent illnesses, infections, fever, chills, or night sweats. No recent changesin appetite. SKIN: Denies skin complaints. Denies pruritus or rashes. HEENT: Denies headaches, or dizziness. Denies acute changes in visual acuity. Denies diplopia or blurred vision. Denies earaches, changes in hearing, or otorrhea. Denies rhinorrhea or sore throat. MS: See HPI. RESPIRATORY: Denies shortness of breath, difficulty breathing or cough. CARDIOVASCULAR: Denies chest pain, pressure, palpitations. GI: Denies abdominal pain, nausea, vomiting. Denies changes in bowel movements/habits. : See HPI. NEUROLOGICAL: See HPI. Physical Exam Vitals and Measurements T: 36.9 C (Oral) TMIN: 36.5 C (Oral) TMAX: 36.9 C (Oral) HR: 78(Apical) RR: 16 BP: 123/78 SpO2: 96%HT: 177.8 cm WT: 100 kg BMI: 31.63 Weight Dosing Weight: 100 kg (04/05/22) General survey: 76-year-old male who appears congruent with his age. He is seen sitting up at the side of the bed, dangling his feet. He was able to transfer himself from bedside commode to the bed,with use of the walker. Patient is cooperative with exam. He is in no acute distress. Skin: Skin is warm and dry. HEENT: Head is normocephalic and atraumatic. Extraocular movements are intact; PERRL. No otorrhea or rhinorrhea. Oral mucosa is pink and moist. MS: Neck is supple. Has tenderness with palpation in the lumbar region, and over right flank area. Cardiovascular: Regular heart rate and rhythm. S1-S2 present. + Edema of the entire left lower extremity, 1+. No edema of the right lower extremity. Respiratory: Respirations even and unlabored. Lungs are clear bilaterally. Abdomen: Abdomen is soft, nontender and nondistended with active bowel sounds 4 quadrants. He is not distended or tender over the bladder. : Patient voided in bedside commode, also has urinal at bedside with clear yellow urine present in it. Peripheral vascular: Extremities are warm and without edema. Radial and pedal pulses are 2+ and symmetric. Neurological: Patient is fully awake and alert. He is oriented appropriately. He follows commands briskly and accurately. He moves all 4 extremities independently. Equal motor strength of his bilateral upper extremities as well as the right lower extremity. Plantar and dorsi flexion are strong and equal, 5/5. He has some diffuse weakness of the left lower extremity especially with anterior tibialis, and difficulty elevating leg at the groin/hip. Patient states this is not a new finding, and has had difficulty lifting his left leg since his left groin surgery in 2002 which left him with chronic pain. Also with recent left hip replacement 2 weeks ago. Patient indicates light touch sensation is intact equally in both legs and feet. No clonus. Babinski reflexes are negative. Lab Results 04/05 03:14 WBC: 6.6 Hgb: 12.7 L Hct: 38.1 L Platelet: 244 Neutrophil %: 78.4 H Glucose Level: 119 H Sodium Level: 140 Potassium Level: 4.1 BUN: 30.0 H Creatinine Lvl (s): 1.05 Imaging Results and Diagnostics See HPI Assessment/Plan Acute on chronic intractable low back pain with muscle spasms 76-year-old male who presented to [facility] emergency department 03/1022 with complaints of right low back pain and muscle spasms which have been occurring over the last 2 weeks, but had significantly worsened when he attempted to stand up from the toilet prior to admission. Has had no recent falls, back injuries or trauma. Recently underwent a left hip replacement 2 weeks ago, and indicates that since that time he has had some edema and tingling in the left lower extremity, also with ongoing urinary retention. Abdomen pelvic CT showed some areas of spinal canal stenosis, but this was not well evaluated on this exam. He indicates history of chronic low back pain and known lumbar herniated disks. Denies any previous lumbar surgery. Patient was transferred from [facility] to [facility] for MRI imaging and neurosurgical review given his presenting symptoms. Dr Sanabria requested lumbar spine MRI to be performed stat, and to rule out significant canal stenosis or other acute pathology that would require urgent intervention. Patient indicates he is claustrophobic, therefore will be medicated with small dose of Valium prior to MRI testing. He is scheduled to go down to MRI department this morning. Further neurosurgical recommendations will be made once MRI has been completed. In the meantime, hehas been made n.p.o.. Aspirin and Subcu heparin injections have been placed on hold until further determination of plan can be made, or if needing surgical intervention. If no surgical intervention is necessary, then these medications will be resumed and patient will be cleared for a diet. It is noted that patient has been started on baclofen by the primary team. If this is not effectivefor the patient, could try tizanidine 2 to 4 mg 3 times daily as needed for muscle spasms. 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 Coronary artery disease Family history of colon cancer Gastroesophageal reflux disease Groin pain, chronic, left Hip pain, bilateral History of myocardial infarction History of non-Hodgkin's lymphoma HTN (hypertension) Knee pain, bilateral Left flank pain Leukocytosis Memory changes Mixed hyperlipidemia Neck pain on right side Pre-op exam Primary osteoarthritis of left hip Renal lesion Right shoulder pain Screening for prostate cancer Well adult exam Historical Acute myocardial infarction Brain TIA Excessive cerumen in both ear canals Immunization due Pain in joint involving multiple sites Subarachnoid hemorrhage Procedure/Surgical History Screening colonoscopy: 12/24/18 Placement of stent: 2010 Excision Repair of right inguinal hernia Medications Inpatient baclofen, 10 mg= 1 tab(s), Oral, TID Cozaar, 50 mg= 1 tab(s), Oral, qDay Dilaudid, 1 mg= 1 mL, Intramuscular, q4h, PRN melatonin, 3 mg= 1 tab(s), Oral, qHS, PRN morphine, 2 mg= 1 mL, IV Push, q2h, PRN NS 1,000 mL, 1000 mL, Intravenous pantoprazole, 40 mg= 1 tab(s), Oral, qDayAC topiramate, 25 mg= 1 tab(s), Oral, qDay Tums, 500 mg= 1 tab(s), Chewed, TID, PRN Zofran, 4 mg= 2 mL, IV Push, q6h, PRN Home acetaminophen 500 mg oral capsule, 500 mg= 1 cap(s), Oral, q6hr Aspercreme with Lidocaine 4% topical cream, Topical, TID aspirin 81 mg oral tablet, chewable, 1, Chewed, BID lansoprazole 30 mg oral delayed release capsule, 30 mg= 1 cap(s), Oral, qDay mometasone 0.1% topical ointment, 1 areli, Topical, Daily, 3 refills Multivitamin, 1 tab(s), Oral, BID oxyCODONE 5 mg oral tablet ( IMMEDIATE release ), 10 mg= 2 tab(s), Oral, q6h, PRN topiramate 25 mg oral tablet, 25 mg= 1 tab(s), Oral, qDay Tums Ultra 1000 mg oral tablet, chewable, 1000 mg= 1 tab(s), Chewed, BID, PRN valsartan 40 mg oral tablet, 0.5 tab, Oral, qDay, 3 refills Allergies Biofreeze Lipitor (Joint pain) Tagamet (Stomach ache) Zetia (Numbness of finger) fenofibrate (Joint pain) hydrALAZINE sulfa drugs Social History Smoking Status - 02/09/2018 Never smoker Alcohol - Denies Alcohol Use, 02/09/2018 Use: Never., 03/23/2019 Employment/School Status: Retired., 07/13/2020 Exercise Days per week: 3-4 times/week., 07/13/2020 Home/Environment Domestic Concerns: None. Living situation: Home/Independent., 07/13/2020 Nutrition/Health Caffeine intake amount: tea 2 x weekly., 03/23/2019 Substance Abuse - Denies Substance Abuse, 02/09/2018 Use: Never., 03/23/2019 Tobacco Tobacco Use: Never (less than 100 in lifetime)., 03/23/2019 Family History Cancer: Mother and Brother. Diabetes mellitus: Mother and Sister. Immunizations pneumococcal 13-valent conjugate vaccine: 0 unknown unit (11/01/14) pneumococcal 23-valent vaccine(Pneumovax: 0 unknown unit (05/14/16) SARS-CoV-2 mRNA (tozinameran) vaccine: 0.5 unknown unit (09/02/20) SARS-CoV-2 mRNA (tozinameran) vaccine: 0.5 unknown unit (08/07/20) tetanus-diphtheria toxoids: 0.5 mL (03/24/20) zoster vaccine, inactivated: 0 unknown unit (03/24/20) Digitally Signed by AUGUSTO LICONA on 04/05/2022 11:19 AM Digitally Signed by SHONDA SANABRIA DO on 04/05/2022 06:32 PM [id number] Note ORIGINAL INDICATION:ORDERING SYSTEM PROVIDED HISTORY: Reason for Exam: LOWER RIGHT BACK PAIN. URINARY RETENTION TECHNIQUE: MRI of the lumbar spine was performed without and with the administration of intravenous contrast, according to standard protocol. COMPARISON: CT abdomen and pelvis 04/04/2022 FINDINGS: ALIGNMENT: Trace retrolisthesis of L2 on L3 and L5 on S1. 6 mm degenerative anterolisthesis of L4 on L5. Mild lumbar rotary levoscoliosis noted. VERTEBRAE: No acute/recent fracture or significant chronic height loss. Modic type 2 endplate change involves L2-L3. multilevel anterior spinal degenerative enthesopathy changes most pronounced at L2 and L3. SPINAL CANAL: Overall reduced caliber of the spinal canal likely on the basis of congenitally short pedicles. DISCS: Moderately severe disc height loss involves L2-L3 and L5-S1. Mild height loss of L4-5 and to lesser extent L3-L4. Widespread disc desiccation. ENHANCEMENT: CONUS MEDULLARIS AND CAUDA EQUINA: The conus medullaris terminates at L1 and is normal. Buckling of the cauda equina on the basis of spinal canal stenosis. PARAVERTEBRAL SOFT TISSUES: Unremarkable. EVALUATION OF INDIVIDUAL LEVELS DEMONSTRATES: T12-L1: Small circumferential disc bulge eccentric to the right extraforaminal zone and mild facet arthrosis. No stenosis. L1-2: Bilateral, left greater than right facet arthrosis causes mild left lateral recess narrowing. No central canal or significant foraminal stenosis. L2-3: A small circumferential disc bulge and facet arthrosis causes mild bilateral lateral recess narrowing without central canal or significant foraminal stenosis. L3-4: A circumferential disc bulge eccentric to the left foraminal and extraforaminal zones, ligamentum flavum hypertrophy, facet arthrosis and a small central canal causes bilateral lateral recess narrowing, moderately severe central canal, moderate right and [id number] left foraminal stenosis. Disc may contact the extraforaminal exiting left L3 nerve root. Small right-sided facet joint effusion noted. L4-5: Circumferential disc bulge, disc uncovering, ligamentum flavum hypertrophy, moderate facet arthrosis, and a congenital small canal causes bilateral lateral recess narrowing, severe central canal, severe right and mild left foraminal stenosis. Small bilateral facet joint effusions are noted. L5-S1: Circumferential disc osteophyte bulge with superimposed small central protrusion, facet arthrosis, and a congenitally small canal causes left lateral recess narrowing, moderate central canal and mild bilateral foraminal stenosis LIMITED EVALUATION OF UPPER SACRUM AND SACROILIAC JOINTS: Degenerative changes of the bilateral sacroiliac joints. ADDITIONAL COMMENTS: The infrarenal abdominal aorta measures 2.8 cm IMPRESSION: 1. Severe central canal and severe right foraminal stenosis at L4-5. 2. Moderately severe central canal and moderate right foraminal stenosis at L3-L4. 3. Moderate central canal stenosis at L5-S1. Interpreted by: Zoie Walker MD Preliminary Report By: Zoie Walker MD Electronically signed By Zoie Walker MD Dictated Date: 04/05/2022 11:55:04 AM Prelim Date: 04/05/2022 12:15:42 PM Sign Date: 04/05/2022 12:15:42 PM Ordering Provider: [facility]11-11-2022 Note ORIGINAL EXAMINATION: TWO XRAY VIEWS OF THE RIGHT HIP 04/05/2022 6:54 am COMPARISON: None. HISTORY: ORDERING SYSTEM PROVIDED HISTORY: Reason for Exam: Right hip pain FINDINGS: There is no fracture or dislocation of the right hip. There is mild marginal acetabular spur formation. The joint space of the right hip is preserved. The right femoral head is normal in contour. No foreign bodies are detected in the soft tissue. IMPRESSION: Mild osteoarthritis. No acute abnormality. Interpreted by: Jonathan Saldaña MD Preliminary Report By: Jonathan Saldaña MD Electronically signed By Jonathan Saldaña MD Dictated Date: 04/05/2022 8:34:30 AM Prelim Date: 04/05/2022 8:36:15 AM Sign Date: 04/05/2022 8:36:15 AM Ordering Provider: [facility]11-11-2022 Note ORIGINAL EXAMINATION: TWO XRAY VIEWS OF THE RIGHT HIP 04/05/2022 6:54 am COMPARISON: None. HISTORY: ORDERING SYSTEM PROVIDED HISTORY: Reason for Exam: Right hip pain FINDINGS: There is no fracture or dislocation of the right hip. There is mild marginal acetabular spur formation. The joint space of the right hip is preserved. The right femoral head is normal in contour. No foreign bodies are detected in the soft tissue. IMPRESSION: Mild osteoarthritis. No acute abnormality. Interpreted by: Jonathan Saldaña MD Preliminary Report By: Jonathan Saldaña MD Electronically signed By Jonathan Saldaña MD Dictated Date: 04/05/2022 8:34:30 AM Prelim Date: 04/05/2022 8:36:15 AM Sign Date: 04/05/2022 8:36:15 AM Ordering Provider: [facility]11-11-2022 History and physical note Date of Service April 05, 2022 Chief Complaint Right lower back pain History of Present Illness A 76 years old male with past medical history significant for left hip osteoarthritis status post minimally invasive direct anterior hip replacement couple of weeks ago, non-Hodgkin lymphoma, BPH, coronary artery disease status post stent, subarachnoid hemorrhage with subsequent resolution, focal seizures, hypertension and cerebral amyloid angiopathy was transferred from [facility] with a concern for acute on chronic right lower back pain with urinary retention. On my evaluation, patient stated that he has had right lower back pain for the past 40 years intermittently, pain has been worse for the past couple of weeks since he had left hip replacement surgery. Yesterday when he was sitting on the toilet he had sudden worsening of right lower back pain extending into the right hip area. He has a history of traumatic low back injury with ruptured disks in the past. Vital signs on admission showed elevated blood pressure, labs on admission were significant for hemoglobin of 12.8. 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 EKG pending at the time of this dictation. ER patient did talk to on-call neurosurgery who recommended admission to hospitalist team with neurosurgery following up as consult. Review of Systems Review of systems are negative except as mentioned in HPI. Physical Exam Vitals and Measurements T: 36.5 C (Oral) HR: 63(Apical) RR: 18 BP: 167/77 SpO2: 96% HT: 177.8 cm WT: 100 kg BMI: 31.63 Weight Dosing Weight: 100 kg (04/05/22) General Appearance: Patient was in mild to moderate distress on my evaluation Head: Atraumatic and normocephalic EENT: EOMI, PERRLA, no oropharyngeal erythema, no tonsillar exudates, no conjunctival injection. sclera anicteric. Neck: No thyromegaly, no cervical lymphadenopathy, trachea midline Cardiac: S1 and S2 normal. RRR. No murmurs, rubs, or gallops. No JVD. No hepatojugular reflex. Lungs: Good air entry bilaterally. No increased work for breathing. No wheezes, rhonchi, or rales. Abdomen: Soft, nontender, nondistended. Normoactive bowel sounds. No rebound or guarding. Negative Marquez's sign. No hepatosplenomegaly. Musculoskeletal: Patient did have right lower back paraspinal tenderness Extremities: Range of motion of left lower extremity is limited due to recent surgery Neurological: Patient did have decreased sensation and some swelling of the left lower extremity, power of the left lower extremity could not be checked due to recent left hip surgery, power 5 out of5 in all 4 extremities. Skin: No abrasions, scars, or hematomas on visible skin. No cyanosis. No purulent discharge. Psychiatric: Alert and oriented, well groomed, euthymic. cooperative Lab Results WBC: 5.4 10^3/mcL (04/04/22 21:17:00) RBC: 4.2 10^6/mcL (04/04/22:17:00) Hgb: 12.8 G/dL Low (04/04/22 21:17:00) Hct: 37.6 % Low (04/04/22:17:00) MCV: 89.6 fL (04/04/22:17:00) MCH: 30.5 pg (04/04/22:17:00) MCHC: 34.1 G/dL (04/04/22:17:00) RDW: 14.4 % (04/04/22:17:00) Platelet: 260 10^3/mcL (04/04/22 21:17:00) MPV: 7.3 fL Low (04/04/22:17:00) Monocyte Distribution Width: 18.25 (04/04/22:17:00) Neutrophil %: 70.3 % (04/04/22 21:17:00) Lymphocyte %: 18.2 % (04/04/22 21:17:00) Monocyte %: 9.2 % (04/04/22 21:17:00) Eosinophil %: 1 % (04/04/22:17:00) Basophil %: 1.3 % (04/04/22:17:00) Neutrophil, Absolute: 3.8 10^3/mcL (04/04/22:17:00) Lymphocyte, Absolute: 1 10^3/mcL (04/04/22:17:00) Monocyte, Absolute: 0.5 10^3/mcL (04/04/22::) Eosinophil, Absolute: 0.1 10^3/mcL (04/04/22) Basophil, Absolute: 0.1 10^3/mcL (04/04/22:) UA Specimen Type: Clean Catch (04/04/22::) UA Color: Yellow (04/04/22:05:) UA Appear: Clear (04/04/22::) UA Spec Grav: 1.015 (04/04/22::) UA Glucose: Negative. (04/04/22:) UA Bili: Negative. (04/04/22) UA Ketones: Negative. (04/04/22) UA Blood: Small Abnormal (04/04/22:) UA pH: 6.0 (04/04/22::) UA Protein: Negative.1 (04/04/22:) UA Urobilinogen: 0.2 (04/04/22::) UA Nitrite: Negative. (04/04/22) UA Leuk Est: Negative. (04/04/22:) Glucose Level: 101 mg/dL (04/04/22:) Sodium Level: 139 mmol/L (04/04/22:) Potassium Level: 3.9 mmol/L (04/04/22) Chloride: 105 mmol/L (04/04/22) CO2: 28 mmol/L (04/04/22) Electrolyte Balance: 6 mEq/L (04/04/22::) BUN: 31 mg/dL High (04/04/22:) Creatinine Lvl (s): 1.17 mg/dL (04/04/22::) BUN/Creatinine Ratio: 26 ratio (04/04/22::) Calcium Lvl: 9.1 mg/dL (04/04/22::00) Total Protein: 6.1 G/dL Low (04/04/22:17:00) Albumin Level: 3.2 G/dL Low (04/04/22:) Globulin: 2.9 G/dL (04/04/22::) A/G Ratio: 1.1 ratio (04/04/22::) Bili Total: 0.3 mg/dL (04/04/22::00) Alk Phos: 116 U/L (04/04/22::00) AST/SGOT: 8 U/L Low (04/04/22::00) ALT/SGPT: 19 U/L (04/04/22::) GFR Non-: 61 ml/min/1.73sqm (04/04/22::00) GFR : 74 ml/min/1.73sqm (04/04/22::) Lipase Level: 21 U/L (04/04/22::) Imaging Results and Diagnostics (04/04/2022 21:[address] Abdomen/Pelvis w/o Contrast) INDINGS: Bibasilar atelectasis. Coronary artery disease. The liver, spleen, adrenals, and pancreas are unremarkable. Peripherally calcified gallbladder. The kidneys appear symmetric in size without obstructive uropathy. Unchanged hypodense left renal lesion. The ureters and bladder are unremarkable. Moderate hiatal hernia. Nondilated loops of small bowel. There is marked sigmoid diverticulosis without adjacent inflammation. A normal appendix is identified. The prostate is unremarkable. No free intraperitoneal fluid or gas. No lymphadenopathy is identified. Atherosclerotic aorta. 2.8 cm infrarenal abdominal aortic aneurysm. 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 Small fat containing umbilical hernia. Bilateral small left greater than right fat containing inguinal hernias. Dorsal spondylosis most prominent inferiorly. No acute osseous abnormality. Left hip prosthesis. Areas of spinal canal stenosis which are poorly evaluated by this method but may be severe. IMPRESSION: No acute inflammatory process within the abdomen/pelvis. Marked sigmoid diverticulosis without diverticulitis. Unchanged 1.7 cm hypodense left midpole lesion. Renal ultrasound is suggested for further evaluation. Porcelain gallbladder. 2.8 cm infrarenal abdominal aortic aneurysm. Recommend follow-up every 5 years. [1] EKG EKG pending Assessment/Plan Acute on chronic right lower back pain: Right low back pain but worse on the day of presentation, extends to the right hip area MRI of lumbar spine without contrast ordered, x-ray right hip ordered IV morphine and IV Dilaudid as needed for pain depending on pain severity Neurosurgery consulted Left hip osteoarthritis: S/p left hip replacement couple of weeks ago Coronary artery disease: Resume home medication of aspirin Patient is allergic to statin and fenofibrate Urinary retention: Patient states he has been having problem with urination for the past couple of weeks since surgery Bladder scan done at [facility] showed 250 mL of urine Mcpherson catheter ordered, nurse reported removal protocol Could be due to BPH History of subarachnoid hemorrhage: Resolved subsequently Hypertension: Patient on losartan 50 mg daily History of focal seizures: Resume home medication of topiramate DVT prophylaxis: Bilateral SCDs Heparin 5000 units subcu every 8 hours Note was written using [employer] geological scout software. Some of the meaning of the words and sentences might have changed during geological scout, if there was ever some confusion about the meaning of some sentences, please do not hesitate to contact me. 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 Coronary artery disease Family history of colon cancer Gastroesophageal reflux disease Groin pain, chronic, left Hip pain, bilateral History of myocardial infarction History of non-Hodgkin's lymphoma HTN (hypertension) Knee pain, bilateral Left flank pain Leukocytosis Memory changes Mixed hyperlipidemia Neck pain on right side Pre-op exam Primary osteoarthritis of left hip Renal lesion Right shoulder pain Screening for prostate cancer Well adult exam Historical Acute myocardial infarction Brain TIA Excessive cerumen in both ear canals Immunization due Pain in joint involving multiple sites Subarachnoid hemorrhage Procedure/Surgical History Screening colonoscopy: 12/24/18 Placement of stent: 2010 Excision Repair of right inguinal hernia Medications Home Medications (10) Active acetaminophen 500 mg oral capsule 500 mg = 1 cap(s), Oral, q6hr Aspercreme with Lidocaine 4% topical cream , Topical, TID aspirin 81 mg oral tablet, chewable 1, Chewed, BID lansoprazole 30 mg oral delayed release capsule 30 mg = 1 cap(s), Oral, qDay mometasone 0.1% topical ointment 1 areli, Topical, Daily Multivitamin 1 tab(s), Oral, BID oxyCODONE 5 mg oral tablet ( IMMEDIATE release ) 10 mg = 2 tab(s), PRN, Oral, q6h topiramate 25 mg oral tablet 25 mg = 1 tab(s), Oral, qDay Tums Ultra 1000 mg oral tablet, chewable 1,000 mg = 1 tab(s), PRN, Chewed, BID valsartan 40 mg oral tablet 0.5 tab, Oral, qDay Allergies Biofreeze Lipitor (Joint pain) Tagamet (Stomach ache) Zetia (Numbness of finger) fenofibrate (Joint pain) hydrALAZINE sulfa drugs Social History Smoking Status - 02/09/2018 Never smoker Alcohol - Denies Alcohol Use, 02/09/2018 Use: Never., 03/23/2019 Employment/School Status: Retired., 07/13/2020 Exercise Days per week: 3-4 times/week., 07/13/2020 Home/Environment Domestic Concerns: None. Living situation: Home/Independent., 07/13/2020 Nutrition/Health Caffeine intake amount: tea 2 x weekly., 03/23/2019 Substance Abuse - Denies Substance Abuse, 02/09/2018 Use: Never., 03/23/2019 Tobacco Tobacco Use: Never (less than 100 in lifetime)., 03/23/2019 Family History Cancer: Mother and Brother. Diabetes mellitus: Mother and Sister. Immunizations pneumococcal 13-valent conjugate vaccine: 0 unknown unit (11/01/14) pneumococcal 23-valent vaccine(Pneumovax: 0 unknown unit (05/14/16) SARS-CoV-2 mRNA (tozinameran) vaccine: 0.5 unknown unit (09/02/20) SARS-CoV-2 mRNA (tozinameran) vaccine: 0.5 unknown unit (08/07/20) tetanus-diphtheria toxoids: 0.5 mL (03/24/20) zoster vaccine, inactivated: 0 unknown unit (03/24/20) Code Status Code Status - Ordered -- 04/05/22 2:32:00 EST, Full Code, Constant Order [1] CT Abdomen/Pelvis w/o Contrast; LILLIANA COLON MD 04/04/2022 21:47 EST Digitally Signed by ANTHONY LEAHY MD on 04/05/2022 02:46 AM [id number] Note ORIGINAL EXAMINATION: CT OF THE ABDOMEN AND PELVIS WITHOUT YMMWWAUU51/10/2022 9:48 pm TECHNIQUE: CT of the abdomen and pelvis was performed without the administration of intravenous contrast. Multiplanar reformatted images are provided for review. Automated exposure control, iterative reconstruction, and/or weight based adjustment of the mA/kV was utilized to reduce the radiation dose to as low as reasonably achievable. COMPARISON: CT abdomen/pelvis February 15, 2022 HISTORY: ORDERING SYSTEM PROVIDED HISTORY: Reason for Exam: abdominal pain. FINDINGS: Bibasilar atelectasis. Coronary artery disease. The liver, spleen, adrenals, and pancreas are unremarkable. Peripherally calcified gallbladder. The kidneys appear symmetric in size without obstructive uropathy. Unchanged hypodense left renal lesion. The ureters and bladder are unremarkable. Moderate hiatal hernia. Nondilated loops of small bowel. There is marked sigmoid diverticulosis without adjacent inflammation. A normal appendix is identified. The prostate is unremarkable. No free intraperitoneal fluid or gas. No lymphadenopathy is identified. Atherosclerotic aorta. 2.8 cm infrarenal abdominal aortic aneurysm. 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 Small fat containing umbilical hernia. Bilateral small left greater than right fat containing inguinal hernias. Dorsal spondylosis most prominent inferiorly. No acute osseous abnormality. Left hip prosthesis. Areas of spinal canal stenosis which are poorly evaluated by this method but may be severe. IMPRESSION: No acute inflammatory process within the abdomen/pelvis. Marked sigmoid diverticulosis without diverticulitis. Unchanged 1.7 cm hypodense left midpole lesion. Renal ultrasound is suggested for further evaluation. Porcelain gallbladder. 2.8 cm infrarenal abdominal aortic aneurysm. Recommend follow-up every 5 years. Reference: J Am Hitesh Radiol 2013;10:789-794. I have personally reviewed the images of this examination and agree with the resident's findings and interpretation. Interpreted by: Lilliana Colon MD Preliminary Report By: Meme Person Electronically signed By Lilliana Colon MD Dictated Date: 04/04/2022 10:24:40 PM Prelim Date: 04/04/2022 10:33:46 PM Sign Date: 04/04/2022 11:19:07 PM Ordering Provider: [facility]11-10-2022 Hospital Discharge instructions Patient Education 04/04/2022 21:09:11 Back and Neck Pain, General General Neck and Back Pain Both neck and back pain are usually caused by injury to the muscles or ligaments of the spine. Sometimes the disks that separate each bone of the spine may cause pain by pressing on a nearby nerve. Back and neck pain may appear after a sudden twisting or bending force (such as in a car accident), or sometimes after a simple awkward movement. In either case, muscle spasm is often present and adds to the pain. Acute neck and back pain usually gets better in 1 to 2 weeks. Pain related to disk disease, arthritis in the spinal joints or spinal stenosis (narrowing of the spinal canal) can become chronic and last for months or years. Back and neck pain are common problems. Most people feel better in 1 or 2 weeks, and most of the rest in 1 to 2 months. Most people can remain active. People have and describe pain differently. Pain can be sharp, stabbing, shooting, aching, cramping, or burning Movement, standing, bending, lifting, sitting, or walking may worsen the pain Pain can be localized to one spot or area, or it can be more generalized Pain can spread or radiate upwards, downwards, to the front, or go down your arms Muscle spasm may occur. Most of the time mechanical problems with the muscles or spine cause the pain. it is usually causedby an injury, whether known or not, to the muscles or ligaments. While illnesses can cause back pain, it is usually not caused by a serious illness. Pain is usually related to physical activity, whether sports, exercise, work, or normal activity. Sometimes it can occur without an identifiable cause. This can happen simply by stretching or moving wrong, without noting pain at the time. Other causes include: Overexertion, lifting, pushing, pulling incorrectly or too aggressively. Sudden twisting, bending or stretching from an accident (car or fall), or accidental movement. Poor posture Poor conditioning, lack of regular exercise Spinal disc disease or arthritis Stress , or illness like appendicitis, bladder or kidney infection, pelvic infections Home care For neck pain: Use a comfortable pillow that supports the head and keeps the spine in a neutral position. The position of the head should not be tilted forward or backward. When in bed, try to find a position of comfort. A firm mattress is best. Try lying flat on your back with pillows under your knees. You can also try lying on your side with your knees bent up towardsyour chest and a pillow between your knees. At first, do not try to stretch out the sore spots. If there is a strain, it is not like the good soreness you get after exercising without an injury. In this case, stretching may make it worse. Don't sit for long periods, as in long car rides or other travel. This puts more stress on the lower back than standing or walking. During the first 24 to 72 hours after an injury, apply an ice pack to the painful area for 20 minutes and then remove it for 20 minutes over a period of 60 to 90 minutes or several times a day. You can alternate ice and heat therapies. Talk with your healthcare provider about the best treatment for your back or neck pain. As a safety precaution, do not use a heating pad at bedtime. Sleepingwith a heating pad can lead to skin leon or tissue damage. Therapeutic massage can help relax the back and neck muscles without stretching them. Be aware of safe lifting methods and do not lift anything over 15 pounds until all the pain is gone. Medicines Talk to your healthcare provider before using medicine, especially if you have other medical problems or are taking other medicines. You may use kqwj-ars-iroyvua medicine to control pain, unless another pain medicine was prescribed.If you have chronic conditions like diabetes, liver or kidney disease, stomach ulcers, gastrointestinal bleeding, or are taking blood thinner medicines. Be careful if you are given pain medicines, narcotics, or medicine for muscle spasm. They can causedrowsiness, and can affect your coordination, reflexes, and judgment. Do not drive or operate heavymachiAssured Labory. Follow-up care Follow up with your healthcare provider, or as advised. Physical therapy or further tests may be needed. If X-rays were taken, you will be notified of any new findings that may affect your care. Call 911 Call 911 if any of the following occur: Trouble breathing Confusion Very drowsy or trouble awakening Fainting or loss of consciousness Rapid or very slow heart rate Loss of bowel or bladder control When to seek medical advice Call your healthcare provider right away if any of these occur: Pain becomes worse or spreads into your arms or legs Weakness, numbness or pain in one or both arms or legs Numbness in the groin area Difficulty walking Fever of 100.4 F (38 C) or higher, or as directed by your healthcare provider [id number] [employer]. [address] [place] [address]. All rights reserved. This information is not intended as a substitute for professional medical care. Always follow yourhealthcare professional's instructions. Follow Up Care 04/04/2022 20:58:53 With:Go to emergency room if symptoms worsen Address:Unknown When:2-4 days With:ZOIE CANO DO Address: [address] [place] [phone] When:2-4 days [facility] 11-10-2022 Note ORIGINAL EXAMINATION: CT OF THE ABDOMEN AND PELVIS WITHOUT EZEQJYMW84/10/2022 9:48 pm TECHNIQUE: CT of the abdomen and pelvis was performed without the administration of intravenous contrast. Multiplanar reformatted images are provided for review. Automated exposure control, iterative reconstruction, and/or weight based adjustment of the mA/kV was utilized to reduce the radiation dose to as low as reasonably achievable. COMPARISON: CT abdomen/pelvis February 15, 2022 HISTORY: ORDERING SYSTEM PROVIDED HISTORY: Reason for Exam: abdominal pain. FINDINGS: Bibasilar atelectasis. Coronary artery disease. The liver, spleen, adrenals, and pancreas are unremarkable. Peripherally calcified gallbladder. The kidneys appear symmetric in size without obstructive uropathy. Unchanged hypodense left renal lesion. The ureters and bladder are unremarkable. Moderate hiatal hernia. Nondilated loops of small bowel. There is marked sigmoid diverticulosis without adjacent inflammation. A normal appendix is identified. The prostate is unremarkable. No free intraperitoneal fluid or gas. No lymphadenopathy is identified. Atherosclerotic aorta. 2.8 cm infrarenal abdominal aortic aneurysm. 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 Small fat containing umbilical hernia. Bilateral small left greater than right fat containing inguinal hernias. Dorsal spondylosis most prominent inferiorly. No acute osseous abnormality. Left hip prosthesis. Areas of spinal canal stenosis which are poorly evaluated by this method but may be severe. IMPRESSION: No acute inflammatory process within the abdomen/pelvis. Marked sigmoid diverticulosis without diverticulitis. Unchanged 1.7 cm hypodense left midpole lesion. Renal ultrasound is suggested for further evaluation. Porcelain gallbladder. 2.8 cm infrarenal abdominal aortic aneurysm. Recommend follow-up every 5 years. Reference: J Am Hitesh Radiol 2013;10:789-794. I have personally reviewed the images of this examination and agree with the resident's findings and interpretation. Interpreted by: Lilliana Colon MD Preliminary Report By: Meme Person Electronically signed By Lilliana Colon MD Dictated Date: 04/04/2022 10:24:40 PM Prelim Date: 04/04/2022 10:33:46 PM Sign Date: 04/04/2022 11:19:07 PM Ordering Provider: [facility]03-10-2022 Hospital Discharge instructions Patient Education 08/02/2021 16:15:26 Subarachnoid Hemorrhage, Jtva-ug-[id number] Subarachnoid Hemorrhage Subarachnoid hemorrhage is bleeding between the brain and the layer that covers the brain. The bleeding puts pressure on the brain, and it stops blood from going to some areas of the brain. If this bleeding is not treated, it may cause brain damage, stroke, or . This is an emergency. You must be treated in the hospital right away. You are more likely to get this condition if you: Smoke. Have high blood pressure. Drink too much alcohol. Are older than age 50. Are female, especially if you have stopped getting your period for a year or longer (menopause). Have a family history of burst blood vessels (aneurysms). Have a certain syndrome that leads to one of these: ?Kidney disease. ?Disease of tissues like bones, blood, and fat (connective tissues). Signs of this bleeding condition include: Sudden, very bad headache. It may feel like the worst headache you have ever had. Feeling sick to your stomach (nausea) or throwing up (vomiting), especially if you have other signssuch as a headache. Sudden weakness or loss of feeling (numbness) in your face, arm, or leg, especially on one side of the body. Sudden trouble with any of these: ?Walking. ?Moving an arm or leg. ?Talking. ?Understanding what people say. ?Swallowing. ?Seeing out of one eye or both eyes. Sudden confusion. Seeing double. Loss of balance. Sensitivity to light. Stiff neck. Trouble staying awake. Passing out (fainting). Follow these instructions at home: Medicines Take skeq-dbi-kzrrxnu and prescription medicines only as told by your doctor. Do not take any medicines that contain aspirin or NSAIDs (like ibuprofen) unless your doctor says that it is safe to take them. Lifestyle Do not use any products that have nicotine or tobacco. These include cigarettes and e-cigarettes. If you need help quitting, ask your doctor. Limit alcohol to 1 drink a day for non women and 2 drinks a day for men. One drink is equalto: ?12 oz of beer. ?5 oz of wine. ?1 oz of hard liquor. Eating and drinking Ask your doctor if it is safe for you to eat and drink. You may need tests to make sure that you can swallow safely (swallow studies). Driving Do not drive until your doctor says that it is safe to drive. Do not drive or use heavy machinery while taking prescription pain medicine. General instructions Do therapy as recommended. This may include: ?Physical therapy (PT). ?Occupational therapy (OT). ?Speech-language therapy. Rest and limit activity as told by your doctor. Rest helps your brain to heal. Make sure you: ?Get plenty of sleep. ?Avoid activities that cause stress to your body or mind. Check your blood pressure as told by your doctor. Write down your blood pressure. Keep all follow-up visits as told by your doctors. This is important. Contact a doctor if: You have a stiff neck. You have a cough. You have a fever. Get help right away if: You have any signs of a stroke. BE FAST is an easy way to remember the main warning signs: ?B - Balance. Signs are dizziness, sudden trouble walking, or loss of balance. ?E - Eyes. Signs are trouble seeing or a sudden change in how you see. ?F - Face. Signs are sudden weakness or loss of feeling of the face, or the face or eyelid droopingon one side. ?A - Arms. Signs are weakness or loss of feeling in an arm. This happens suddenly and usually on one side of the body. ?S - Speech. Signs are sudden trouble speaking, slurred speech, or trouble understanding what people say. ?T - Time. Time to call emergency services. Write down what time symptoms started. You have other signs of a stroke, such as: ?A sudden, very bad headache with no known cause. ?Feeling sick to your stomach. ?Throwing up. ?Jerky movements you cannot control (seizure). These symptoms may be an emergency. Do not wait to see if the symptoms will go away. Get medical help right away. Call your local emergency services (911 in the [place] Do not drive yourself to the hospital. Summary Subarachnoid hemorrhage is bleeding in the brain. It is an emergency. You must be treated in the hospital right away. Follow instructions from your doctor about eating, resting, and taking medicines. Do not take any medicines that contain aspirin or NSAIDs (like ibuprofen) unless your doctor says that it is safe to take them. This information is not intended to replace advice given to you by your health care provider. Make sure you discuss any questions you have with your health care provider. Document Released: 09/06/2013 Document Revised: 04/24/2018 Document Reviewed: 02/19/2018 [employer] Patient Education 2020 [employer]. Follow Up Care 07/28/2021 23:51:08 With:DEE DEE DINH PA-C Address: [address] [facility] [place] [address] [phone] When:08/21/2021 11:20:00 Comments:Neurology physicians showroom sales assistant, follow-up regarding seizures/Keppra With:ELLIS FULTON, CHRISTOPHER Kimbrough, Neurosurgery Address: [address] [place] [address] [address] [facility] [place] [address]- [phone] When:08/23/2021 10:00:00 Comments:Brain CT at [facility] on 08/23/2021 at 9:15 AM (please arrive 15 minutes early) With:ZOIE CANO DO Address: [address] [place] [phone] When:1-2 days Comments:Please call the office to set up a follow up appointment [facility] 03-06-2022 Evaluation + Plan noteExtracted from: Title:History and Physical Author:STEVEN ANTHONY APRN-RAILROAD INSPECTOR Date:07/29/21 Small right subarachnoid hem orrhage: -Patient had a repeat CT of the head this morning, which demonstrates expected evolution of the subarachnoid hemorrhage. -An MRI/MRA of the brain with and without contrast has been ordered to evaluate for possible stroke. -Neurology has been consulted to evaluate for possible TIA versus seizure due to the episodes of left-sided weakness and tremoring. -An echo and carotid ultrasound has also been ordered for work-up of TIA/stroke. -Once the MRI of the brain has been obtained, further recommendations will follow at that time. Just discussed patient with Dr. Guzman. He is concerned because of his symptoms could be related to seizure. He has changed the MRI to with and without contrast to ensure there is no underlying lesion causing seizure activity. In the meantime, he is being started on Keppra. Appreciate his assistance. Addendum by CHRISTOPHER CORRAL MD on Jul 29, 2021 16:00 VICKI Vitale shared note with the nurse practitioner. This patient was seen and examined. This is a gentleman has a history of's myocardial infarction. Arrived to the hospital with a history of right-sided facial numbness, right arm numbness, left upper extremity numbness. As well as transient right upper and lower extremity weakness. He arrived to the emergency room where CT scan was done for stroke work-up which revealed the presence of a right motor cortex area of subarachnoid hemorrhage. The patient has been having a headache for the past several days taking an elevated dose of his aspirin. His blood pressure was also noted to be elevated in the emergency room. This is likely hypertensive hemorrhage. Clinically and radiographically there is no evidence of elevated intracranial pressure. On examination today, the patient is awake he is alert he is oriented x3. He is moving all extremities well. He has no sensory deficits. There is no evidence of any right-sided facial or body weakness or numbness or tingling. Plan at this point time is to obtain an MRI to make sure that he did not have an underlying stroke which was complicated then by hemorrhage with him taking the aspirin. Likely disposition planning will be repeat noncontrast head CT in 2 weeks time. And once the blood has resolved, he can resume his aspirin for both myocardial infarction prevention, and likely still prevention as well. An MRA will be ordered, as well as carotid ultrasound, as well as an echo for the complete stroke work-up. Future Appointments Appointment Date:08/07/2021 01:00:00 PM Scheduled Provider:ZOIE CANO DO Location:[facility] Appointment Type:PC OV Appointment Date:08/23/2021 09:15:00 AM Scheduled Provider: Location:XRAY Appointment Type:CT Head or Brain w/o Contrast Appointment Date:08/23/2021 10:00:00 AM Scheduled Provider:CHRISTOPHER CORRAL MD Location:NEUROS Appointment Type:NS OV Future Scheduled Tests Radiology* CT Head or Brain w/o Contrast 08/23/21 * MRI Brain w/o Contrast 07/24/21 [facility] 03-05-2022 Hospital Discharge instructions Patient Education 07/28/2021 18:11:13 Paraesthesias Paraesthesias Paraesthesia is a burning or prickling sensation that is sometimes felt in the hands, arms, legs orfeet. It can also occur in other parts of the body. It can also feel like tingling or numbness, skin crawling, or itching. The feeling is not comfortable, but it is not painful. (The pins and needles feeling that happens when a foot or hand falls asleep is a temporary paraesthesia.) Paraesthesias that last or come and go may be caused by medical issues that need to be treated. These include stroke, a bulging disk pressing on a nerve, a trapped nerve, vitamin deficiencies, uncontrolled diabetes, alcohol abuse, or even certain medicines. Tests are often done. These tests may include blood tests, X-ray, CT (computerized tomography) scan, nerve conduction studies (NCS), or a muscle test (electromyography). Depending on the cause, treatment may include physical therapy. Home care Tell your healthcare provider about all medicines you take. This includes prescription and nuuc-liv-ydqioeq medicines, vitamins, and herbs. Ask if any of the medicines may be causing your problems. Don't make any changes to prescription medicines without talking to your healthcare provider first. You may be prescribed medicines to help relieve the tingling feeling or for pain. Take all medicines as directed. A numb hand or foot may be more prone to injury. To help protect it: oAlways use oven mitts. oTest water with an unaffected hand or foot. oUse caution when trimming nails. File sharp areas. oWear shoes that fit well to avoid pressure points, blisters, and ulcers. oInspect your hands and feet carefully (including the soles of your feet and between your toes) daily. If you see red areas, sores, or other problems, tell your healthcare provider. Follow-up care Follow up with your doctor, or as advised. You may need further testing or evaluation. When to seek medical advice Call your healthcare provider right away if any of the following occur: Numbness or weakness of the face, one arm, or one leg Slurred speech, confusion, trouble speaking, walking, or seeing Severe headache, fainting spell, dizziness, or seizure Chest, arm, neck, or upper back pain Loss of bladder or bowel control Open wound with redness, swelling, or pus [id number] [employer]. [address] [place] [address]. All rights reserved. This information is not intended as a substitute for professional medical care. Always follow yourhealthcare professional's instructions. Follow Up Care 07/28/2021 17:11:21 With:ZOIE CAON DO Address: [phone] When:5 to 7 days Comments:Keep your scheduled appointment 08/07/2021 [facility] 02-28-2022 Hospital Discharge instructions Patient Education 07/23/2021 18:21:39 What is a TIA? What Is a TIA? A TIA (transient ischemic attack) is an early warning that a stroke (also called a brain attack) iscoming. A TIA is a temporary stroke. It causes no lasting damage. But the effects of a stroke, if it happens, can be very serious and lasting. If you think you are having symptoms of a TIA or stroke even if they don t last get medical help right away. Symptoms of TIA and stroke Symptoms may come on suddenly and last for a few seconds or a few hours. You may have symptoms onlyonce. Or they may come and go for days. If you notice any of the following symptoms, don t wait. Call 911 or emergency services right away. Weakness, numbness, tingling, or loss of feeling in your face, arm, or leg Trouble seeing in one or both eyes; double vision Slurred speech, trouble talking, or problems understanding others when they speak Sudden, severe headache Dizziness or a feeling of spinning Loss of balance or falling Blackouts F.A.S.T. is an easy way to remember the signs of a stroke. When you see the signs, you will know what you need to call 911 fast. F.A.S.T. stands for: F is for face drooping. One side of the face is drooping or numb. When the person smiles, the smileis uneven. A is for arm weakness. One arm is weak or numb. When the person lifts both arms and the same time, one arm may drift downward. S is for speech difficulty. You may notice slurred speech or trouble speaking. The person can't repeat a simple sentence correctly when asked. T is for time to call 911. If someone shows any of these symptoms, even if they go away, call 911 right away. Make note of the time the symptoms first appeared. 4378-7396 [employer]. [address] [place] [address]. All rights reserved. This information is not intended as a substitute for professional medical care. Always follow [facility] professional[facility] instructions. 07/23/2021 18:21:34 TIA: Transient Ischemic Attack Transient Ischemic Attack (TIA) Your symptoms were caused by a TIA, or mini-stroke. Even though your symptoms have gone away, this condition is as serious as a full stroke. It means you are more likely to have a full stroke. About 1 in 3 people who have a TIA go on to have a full stroke. And 4% to 10% of those people will have the stroke within 2 days. A TIA is caused when something decreases or blocks blood flow to a part of your brain. A TIA often happens when a blood clot travels to a blood vessel in the brain. The clot reduces or blocks blood flow. This causes the symptoms you had. After a short while, the clot dissolves. Blood flows again, and the symptoms go away. People with hardening of the arteries (atherosclerosis) are at higher risk for a TIA. So are people who have an irregular heartbeat called atrial fibrillation. A TIA causes symptoms similar to a stroke, but they last less than 24 hours. A full stroke causes symptoms that last more than 24 hours and may be permanent. But even if your symptoms only lasted a short time, the TIA may have damaged your brain tissue. Once you have had a TIA, you are at risk of having a full stroke. You will need tests to look at the blood flow to your brain. The tests can alsorule out other causes of your symptoms. The tests may include an ultrasound of the arteries in yourneck and an evaluation of your heart. They may also include a CT scan of your brain, an MRI scan ofyour brain, or both. If your healthcare provider finds problems, he or she will recommend treatmentwith medicines, procedures, or both. Your provider may prescribe medicines to reduce your chance of having another TIA and stroke. Thesemay include medicines that prevent blood clots, such as antiplatelet medicines and blood thinners (anticoagulants). Your doctor may recommend other treatment. This may include a procedure to open up a blocked artery in your neck. Home care The following guidelines will help you take care of yourself at home: Take any medicines your doctor has prescribed as directed. These may include antiplatelet medicinesor medicines for other conditions, such as high blood pressure or high cholesterol. A TIA is a serious event that puts you at risk of having a full stroke. Because of this, it is important to take steps to help prevent a stroke from happening. Your doctor will look at all of your risk factors when deciding on what other treatment you may need. Ways to reduce your risk for stroke High blood pressure, diabetes, high cholesterol, heavy drinking, and smoking are risk factors for stroke and heart disease. You can control these by taking medicines and making diet and lifestyle changes. One way to help prevent a stroke is to take aspirin or a similar medicine every day. But don'ttake daily aspirin unless your healthcare provider tells you to. Your provider will work with you to make lifestyle changes to help prevent a stroke. Diet Your healthcare provider will give you information about changes you may need to make to your diet.You may need to see a registered dietitian for help with diet changes. Changes may include: Eating less fat and cholesterol Eating less salt (sodium). This is especially important if you have high blood pressure. Eating more fresh fruits and vegetables Eating lean proteins, such as fish, poultry, beans, and peas Eating less red meat and processed meats Using low-fat dairy products Using vegetable and nut oils in limited amounts Limiting how many sweets and processed foods such as chips, cookies, and baked goods you eat Limiting how much alcohol you drink Physical activity Your healthcare provider may recommend that you get more exercise if you have not been as active aspossible. He or she may suggest that you get 40 minutes of moderate to vigorous physical activity each day. You should do this at least 3 to 4 days a week. A few examples of moderate to vigorous exercise are: Walking at a brisk pace, about 3 to 4 miles per hour Jogging or running Swimming or water aerobics Hiking Dancing Martial arts Tennis Riding a bike Other ways to reduce your risk Weight management. If you are overweight or obese, your healthcare provider will work with you to lose weight and lower your body mass index (BMI) to a normal or near-normal level. Making diet changes and increasing physical activity can help. Smoking. If you smoke, break the habit. Enroll in a stop smoking program to improve your chances ofsuccess. Stress. Learn how to manage your stress. This will help you deal with stress at home and at work. Follow-up care Call your doctor for an appointment in the next few days for another evaluation, or as advised. This is to make a plan for preventing another TIA or stroke. You may need to see a neurologist to follow up on your TIA. A neurologist is a doctor who specializes in treating brain and nervous system problems. You may need other tests or procedures. If you had an X-ray, CT scan, MRI scan, or ECG (electrocardiogram), a specialist will review it. You ll be told of any new findings that will affect your care. Call 911 Call 911 if any of these occur: Any of your TIA symptoms return New problems with speech, vision, walking, or weakness or numbness of the face or on one side of the body Severe headache, fainting spell, dizziness, or seizure [id number] [employer]. [address] [place] [address], [place] [address]. All rights reserved. This information is not intended as a substitute for professional medical care. Always follow yourhealthcare professional's instructions. 07/23/2021 17:14:43 Treating Peripheral Neuropathy Treating Peripheral Neuropathy Peripheral neuropathy is a disease of the nerves. It most often starts in your feet and may also eventually affect the arms. It may cause pain or may make you unable to sense pain. Sometimes, weakness occurs as well. Lack of pain and weakness makes you more likely to injure yourself without knowingit. Learn ways to protect your feet. Check your feet daily for wounds you may not have felt. Avoid leon by testing bath water with your elbow before stepping in. Also, always wear shoes to prevent injury. Regular foot care If you have foot numbness, you may not notice cutting yourself while trimming your nails. To prevent problems, your healthcare provider may ask you to visit for nail and callus trimming. See your provider for foot care as often as suggested. Check your feet daily Catch problems early by checking your feet every day for changes. Look at the top and bottom of your feet, your heels, and between your toes. It may help to use a mirror. If this is hard, ask someoneto check for you. Call your healthcare provider if you notice a wound, ulceration, ingrown nail, orany changes in your feet. This includes increased heat, swelling, numbness, tingling, pain, and redness. Wear proper footwear Always wear shoes and socks, even indoors. Ask your healthcare provider how to choose the right shoe. After buying shoes, bring them to your doctor to be checked for proper fit. Take new shoes off every hour or so to check for red pressure areas on your feet. Each time you put on your shoes, use your fingers first to feel inside for foreign objects. Common causes of peripheral neuropathy Some common causes of peripheral neuropathy include: Diabetes or other endocrine disorders Toxins (such as alcohol) Nutritional deficiencies (such as Vitamin B-12) Kidney disease Injury Repetitive stress (such as carpal tunnel syndrome) Autoimmune disease Cancer and tumors Chemotherapy Arthritis Advanced age Heredity Infection Diagnosis and treatment Diagnosis of peripheral neuropathy includes a complete history and physical exam. Lab tests including blood work and imaging often help determine the cause. Special nerve tests are often helpful including nerve conduction velocity studies (NCV), and electromyography (EMG). Treatment focuses on treating the underlying disorder and treating symptoms through the use of medicines, injections, TENS (transcutaneous electrical nerve stimulation), acupuncture, massage, and other methods. [id number] [employer]. [address] [place] [address], [place] [address]. All rights reserved. This information is not intended as a substitute for professional medical care. Always follow yourhealthcare professional's instructions. 07/23/2021 17:14:40 Neuropathy, Peripheral Peripheral Neuropathy Peripheral neuropathy is the result of damage to the peripheral nerves. It usually affects the armsor legs, and causes a change in physical feeling. Sometimes it causes weakness in the muscles. You may feel tingling, numbness or shooting pains. Symptoms may be more common at night. Skin may be extra sensitive to light touch or temperature changes. Neuropathy may be caused by a complication of a chronic disease such as diabetes, virus or bacterial infections, or physical injury. A ruptured disk with pressure on the spinal nerve may also lead tothe problem. Certain vitamin deficiencies may also lead to it. It may also be caused by exposure tocertain drugs or chemicals. Home care Tell the healthcare provider about all medicines you take. This includes prescription and [id number] medicines, vitamins, and herbs. Ask if any of the medicines may be causing your problems. Don't make any changes to prescription medicines without talking to your healthcare provider first. You may be prescribed medicines to help relieve the tingling feeling or for pain. Take all medicines as directed. A numb hand or foot may be more prone to injury. To help protect it: oAlways use oven mitts. oTest water with an unaffected hand or foot. oUse caution when trimming nails. File sharp areas. oWear shoes that fit well to avoid pressure points, blisters, and ulcers. oInspect your hands and feet carefully (including the soles of your feet and between your toes) at least once a week. If you see red areas, sores, or other problems, tell your healthcare provider. Follow-up care Follow up with your doctor or as advised by our staff. You may need further testing or evaluation. When to seek medical advice Call your healthcare provider right away if any of the following occur: Redness, swelling, cracking, or ulcer on any numb area, especially the feet New symptoms of numbness or muscle weakness numbness Loss of bowel or bladder control Slurred speech, confusion, or trouble speaking, walking, or seeing [id number] [employer]. [address] [place] [address]. All rights reserved. This information is not intended as a substitute for professional medical care. Always follow yourhealthcare professional's instructions. Follow Up Care 07/23/2021 16:42:06 With:ZOIE CANO DO Address: [address] [place] [address] [phone] When:1-2 days [facility] Evaluation + Plan note No data available for this section [facility] Evaluation + Plan note Future Appointments Appointment Date:08/07/2021 01:00:00 PM Scheduled Provider:ZOIE CANO DO Location:[facility] Appointment Type:PC OV Future Scheduled Tests Radiology* MRI Brain w/o Contrast 07/24/21 [facility] Evaluation + Plan note Future Appointments Appointment Date:02/28/2022 01:30:00 PM Scheduled Provider:ZOIE CANO DO Location:[facility] Appointment Type:PC OV Pre Op Future Scheduled Tests Radiology* MRI Brain w/o Contrast 07/24/21 [facility] Evaluation + Plan note Future Appointments Appointment Date:04/08/2022 02:30:00 PM Scheduled Provider: Location:[facility] Appointment Type:PT Treatment [facility] Appointment Date:04/10/2022 02:30:00 PM Scheduled Provider: Location:[facility] Appointment Type:PT Treatment [facility] Appointment Date:04/15/2022 02:30:00 PM Scheduled Provider: Location:[facility] Appointment Type:PT [facility] Appointment Date:04/17/2022 01:00:00 PM Scheduled Provider: Location:[facility] Appointment Type:PT Treatment [facility] Appointment Date:04/22/2022 01:00:00 PM Scheduled Provider: Location:[facility] Appointment Type:PT Treatment [facility] Appointment Date:04/25/2022 01:00:00 PM Scheduled Provider: Location:[facility] Appointment Type:PT Treatment [facility] Appointment Date:08/26/2022 10:30:00 AM Scheduled Provider:ZOIE CANO DO Location:[facility] Appointment Type:PC OV Diagnostic Tests Pending * Urine Culture 04/04/22 Future Scheduled Tests Radiology* MRI Brain w/o Contrast 07/24/21 * US Renal 02/20/22 [facility] Evaluation + Plan note Future Appointments Appointment Date:05/29/2022 01:15:00 PM Scheduled Provider:CHRISTOPHER CORRAL MD Location:[facility] Appointment Type:NS OV Appointment Date:08/26/2022 10:30:00 AM Scheduled Provider:ZOIE CANO DO Location:[facility] Appointment Type:PC OV Future Scheduled Tests Radiology* MRI Brain w/o Contrast 07/24/21 * US Renal 02/20/22 [facility] Evaluation + Plan note Future Appointments Appointment Date:07/17/2022 10:45:00 AM Scheduled Provider:CHRISTOPHER CORRAL MD Location:[facility] Appointment Type:NS OV Appointment Date:08/26/2022 10:30:00 AM Scheduled Provider:ZOIE CANO DO Location:[facility] Appointment Type:PC OV Future Scheduled Tests Radiology* MRI Brain w/o Contrast 07/24/21 * US Renal 02/20/22 [facility] Evaluation + Plan note Future Appointments Appointment Date:08/26/2022 10:30:00 AM Scheduled Provider:ZOIE CANO DO Location:[facility] Appointment Type:PC OV Future Scheduled Tests Radiology* MRI Brain w/o Contrast 07/24/21 * US Renal 02/20/22 [facility] Evaluation + Plan note Future Appointments Appointment Date:08/19/2023 11:00:00 AM Scheduled Provider:BRENNA MILLS Location:[facility] Appointment Type:PC OV [facility] Evaluation + Plan note Future Appointments Appointment Date:07/09/2023 11:00:00 AM Scheduled Provider: Location:[facility] Appointment Type:CT Head or Brain w/o Contrast Appointment Date:08/26/2023 11:00:00 AM Scheduled Provider:BRENNA MILLS APRN-SANDOR Location:[facility] Appointment Type:PC OV Future Scheduled Tests Radiology* CT Head or Brain w/o Contrast 07/09/23 [facility] Hospital Discharge instructions No data available for this section [facility] Progress note No data available for this section [facility] Summary Purpose Family History No Family History Records Found Advance Directives No Advanced Directives Records FoundNo Advanced Directives Records Found Additional Source Comments Care Team (unrecognized sect ion and content) Care Team Personnel Name: Kitty Liao Clerk Stefany PT Position: P3 Scheduling - Circulation Analyst Advanced Member Role: Other Name: ZOIE CANO DO Position: P4 Physician - Primary Care Med Service: Active Provider Member Role: Primary Care Physician Address: Address: [address] [place] [address] Care Team Related Persons Name: ARACELI SHEIKH Care Team Personnel Name: Kitty Liao Clerleslie Mccall PT Position: P3 Scheduling - Circulation Analyst Advanced Member Role: Other Name: ZOIE CANO DO Position: P4 Physician - Primary Care Member Role: Primary Care Physician Address: Address: [address] [place] [address] Name: Luisa Fowler RN Position: AO RN Member Role: ED RN Name: VA ONEILL DO Position: ED Physician Member Role: Attending Physician Address: Address: [address] [place] [address] Care Team Related Persons Name: ARACELI SHEIKH Care Team Personnel Name: Kitty Liaorleslie Mccall PT Position: P3 Scheduling - Circulation Analyst Advanced Member Role: Other Name: ZOIE CANO DO Position: P4 Physician - Primary Care Member Role: Primary Care Physician Address: Address: [address] [place] [address] Care Team Related Persons Name: ARACELI SHEIKH Care Team Personnel Name: GUILLERMO TAYLOR JR, MD Position: P4 Physician - General Surgery Member Role: Surgeon Address: Address: [address] [place] [address] [address] [facility] [address] Name: Kitty Liao PT Position: P3 Scheduling - Circulation Analyst Advanced Member Role: Other Name: ZOIE CANO DO Position: P4 Physician - Primary Care Member Role: Primary Care Physician Address: Address: [address] [place] [address] Care Team Related Persons Name: ARACELI SHEIKH Care Team Personnel Name: GUILLERMO TAYLOR JR, MD Position: P4 Physician - General Surgery Member Role: Surgeon Address: Address: [address] [place] [address] Name: Kityt Liaorleslie Mccall PT Position: P3 Scheduling - Circulation Analyst Advanced Member Role: Other Name: ZOIE CANO DO Position: P4 Physician - Primary Care Member Role: Primary Care Physician Address: Address: [address] [place] [address] Care Team Related Persons Name: ARACELI SHEIKH Care Team Personnel Name: GUILLERMO TAYLOR JR, MD Position: P4 Physician - General Surgery Member Role: Surgeon Address: Address: [address] [place] [address] Name: Kitty Liaorleslie Mccall PT Position: P3 Scheduling - Circulation Analyst Advanced Member Role: Other Name: ZOIE CANO DO Position: P4 Physician - Primary Care Member Role: Primary Care Physician Address: Address: [address] [place] [address] Care Team Related Persons Name: ARACELI SHEIKH Care Team Personnel Name: GUILLERMO TAYLOR JR, MD Position: P4 Physician - General Surgery Member Role: Surgeon Address: Address: [address] [place] [address] Name: Kitty Liaorleslie Mccall PT Position: P3 Scheduling - Circulation Analyst Advanced Member Role: Other Name: ZOIE CANO DO Position: P4 Physician - Primary Care Member Role: Primary Care Physician Address: Address: [address] [place] [address] Care Team Related Persons Name: ARACELI SHEIKH Care Team Personnel Name: GUILLERMO TAYLOR JR, MD Position: P4 Physician - General Surgery Member Role: Surgeon Address: Address: [address] [place] [address] Name: Keshawn, Training Systems Officer Stefany PT Position: P3 Scheduling - Circulation Analyst Advanced Member Role: Other Name: BRENNA MILLS COMPUTER ANALYST SUPERVISOR-RAILROAD INSPECTOR Position: P4 Advanced Practice Nurse Member Role: Primary Care Physician Address: Address: [address] Care Team Related Persons Name: JASONERLINDA BARNESLEY Patient Care team informatio n (unrecognized section and content) Care Team Personnel Name: GUILLERMO TAYLOR JR, MD Position: P4 Physician - General Surgery Member Role: Surgeon Address: Address: [address] [place] [address] Name: Kitty Liaorleslie Mccall PT Position: P3 Scheduling - Circulation Analyst Advanced Member Role: Other Name: BRENNA MILLS APRN-RAILROAD INSPECTOR Position: P4 Advanced Plasterer Maintenance Member Role: Primary Care Physician Address: Address: [address] Care Team Related Persons Name: ARACELI SHEIKH Care Team Personnel Name: GUILLERMO TAYLOR JR, MD Position: P4 Physician - General Surgery Member Role: Surgeon Address: Address: [address] [place] [address] Name: Kitty Liao PT Position: P3 Scheduling - Circulation Analyst Advanced Member Role: Other Name: BRENNA MILLS APRN-RAILROAD INSPECTOR Position: P4 Advanced Plasterer Maintenance Member Role: Primary Care Physician Address: Address: [address] [place] [address] Care Team Related Persons Name: JASONARACELI BARNES (unrecognized sect ion and content) No Status Records FoundNo Status Records Found INFORMATION SOURCE (unrecogn ized section and content) DATE CREATED AUTHOR AUTHOR'S DAGMAR ATION 07/10/2023 [facility] [place] FOR RECORDS PERTAINING TO PATIENTS WHO ARE OR HAVE BEEN ENROLLED IN A CHEMICAL DEPENDENCY/SUBSTANCEABUSE PROGRAM, SOME INFORMATION MAY BE OMITTED. This clinical summary was aggregated from multiple sources. Caution should be exercised in using it in the provision of clinical care. This summary normalizes information from multiple sources, and as a consequence, information in this document may materially change the coding, format and clinical context of patient data. In addition, data may be omitted in some cases. CLINICAL DECISIONS SHOULD BE BASED ON THE PRIMARY CLINICAL RECORDS. [facility]. provides no warranty or guarantee of the accuracy or completeness of information in this document.
== END | disposition home or self-care (01) ==
LOC: PSN 07:41
PROVIDERS: PCP Nurse Practitioner Primary Care; Referring Provider Nurse Practitioner Family; Visit Provider Nurse Practitioner Family
DX: R55 Syncope and collapse (principal); R00.1 Bradycardia, unspecified
CPT/HCPCS: 93225; 93226

== ENCOUNTER → 2023-07-30 | Outpatient (CLI) | payer MEDICARE, SELFPAY ==
[2023-07-30 12:03] LABS: Absolute Lymphocyte Count 1.09 X10^3/uL (0.83-4.51); Absolute Neutrophil Count 4.2 X10^3/uL (2.0-7.7); Basophil# 0.06 X10^3/uL; Eosinophil# 0.12 X10^3/uL; Hematocrit 47.3 % (40-54); Hemoglobin 15.3 g/dL (13.0-16.5); Lymphocyte # 1.09 X10^3/ul (0.83-4.51); Mean Corp Hgb Conc 32.3 g/dL (32-36); Mean Corpuscular Volume 92.7 fL (80-94); Mean Platelet Vol. 10.5 fl (6.2-12.0); Monocyte# 0.55 X10^3/uL; Monocyte% 9.1 % (0-10); NRBC Flagged by Analyzer 0 % (0-5); Neutrophil # 4.18 X10^3/uL (2.7-7.7); Neutrophil % 69.2 % (47-70); Platelet Count 156 K/mm3 (150-450); RBC Distribution Width CV 15.1 % (11.6-14.6); RBC Distribution Width SD 51.4 fl (35.1-43.9)
[2023-07-30 13:11] LABS: Anion Gap 4 (5-15); BUN 30 mg/dL (7-18); BUN/Creat Ratio 30.1 RATIO (10-20); Calcium,Total 9.4 mg/dL (8.5-10.1); Chloride 113 mmol/L (98-107); EST Glomerular Filtration Rate 77 mL/min (>60); Est Glom Filt Rate - Afr Amer 94 mL/min (>60); Glucose 92 mg/dL (74-106); Magnesium 2.3 mg/dL (1.6-2.6); Potassium 4.5 mmol/L (3.5-5.1); Sodium Level 144 mmol/L (136-145); T4 Free Direct 0.91 ng/dL (0.76-1.46); Thyroid Stim Hormone (TSH) 1.06 uIU/mL (0.358-3.74)
== END | disposition home or self-care (01) ==
LOC: LABSPEC 11:24 → LAB 11:25
PROVIDERS: PCP Nurse Practitioner Primary Care; Visit Provider Nurse Practitioner Family
DX: I35.1 Nonrheumatic aortic (valve) insufficiency (principal); R00.1 Bradycardia, unspecified; R55 Syncope and collapse; Z95.5 Presence of coronary angioplasty implant and graft
CPT/HCPCS: 36415; 80048; 83735; 84439; 84443; 85025

== ENCOUNTER → 2023-08-27 | Outpatient (CLI) | payer MEDICARE, SELFPAY ==
--- NOTE | 2023-08-27 14:50 | ECHOD_ITS ---
Reason For Study: AI/ SYNCOPE Procedure This was a 2D Doppler, Color Flow transthoracic echocardiogram. Exam performed in department. Left Ventricle Normal LV size. Left ventricular systolic function is normal. The left ventricular ejection fraction is 55 %. No regional wall motion abnormalities noted. Right Ventricle Normal RV size. Normal systolic function. Atria Normal left atrium. Normal right atrium. Mitral Valve Normal mitral valve. Tricuspid Valve Normal tricuspid valve. Aortic Valve Trisinus/trileaflet aortic valve. Mild (1+) aortic valve insufficiency. Pulmonic Valve Normal pulmonic valve. Great Vessels Normal aortic root. The pulmonary artery is normal size. Normal inferior vena cava. Pericardium/Pleural No pericardial effusion. MMode/2D Measurements & Calculations LVIDd: 4.6 cm IVSd: 1.3 cm LVOT diam: 2.1 cm LVIDs: 3.2 cm LVPWd: 1.1 cm LVOT area: 3.6 cm2 RVDd: 3.9 cm FS: 29.0 % Ao root diam: 3.5 cm LAV(MOD-bp): 67.0 ml LVAd ap4: 37.9 cm2 LAV(MOD-bp) Indexed: 31.1 ml/m2 LVLd ap4: 9.0 cm LAV(MOD-sp2): 71.5 ml EDV(MOD-sp4): 129.8 ml LAV(MOD-sp4): 59.2 ml EDV(sp4-el): 134.8 ml LVAs ap4: 22.9 cm2 LVLs ap4: 7.9 cm ESV(MOD-sp4): 55.4 ml ESV(sp4-el): 56.1 ml EF(MOD-sp4): 57.3 % EF(sp4-el): 58.4 % LVAd ap2: 35.5 cm2 SV(MOD-sp4): 74.4 ml SV(MOD-sp2): 58.5 ml LVLd ap2: 9.3 cm EDV(MOD-sp2): 112.8 ml EDV(sp2-el): 114.4 ml LVAs ap2: 22.3 cm2 LVLs ap2: 8.2 cm ESV(MOD-sp2): 54.3 ml ESV(sp2-el): 51.8 ml EF(MOD-sp2): 51.9 % SV(sp4-el): 78.7 ml LA dimension(2D): 4.1 cm LA A4 area: 21.6 cm2 RA A4 area: 21.5 cm2 TAPSE: 2.1 cm Time Measurements MV dec time: 0.20 sec Doppler Measurements & Calculations MV E max homero: 39.9 cm/sec Lat Peak E' Homero: 9.4 cm/sec Med Peak E' Homero: 5.3 cm/sec MV A max homero: 72.2 cm/sec E/E' lat: 4.3 E/E' med: 7.6 MV E/A: 0.55 Ao V2 max: 124.7 cm/sec AI max homero: 348.9 cm/sec MV dec slope: 197.9 cm/sec2 Ao max P.2 mmHg AI max P.7 mmHg Ao V2 mean: 90.5 cm/sec Ao mean P.7 mmHg AI dec slope: 222.0 cm/sec2 Ao V2 VTI: 25.8 cm AI P1/2t: 460.4 msec AV (velocity ratio): 0.70 KORIN(I,D): 2.5 cm2 KORIN(V,D): 2.4 cm2 LV V1 max: 82.4 cm/sec SV(LVOT): 65.3 ml PA V2 max: 112.4 cm/sec LV V1 max P.7 mmHg PA max PG (full): 3.8 mmHg LV V1 mean P.8 mmHg LV V1 mean: 63.2 cm/sec LV V1 VTI: 18.0 cm ECHO/Echo Complete Interpretation Summary Normal LV size. Left ventricular systolic function is normal. The left ventricular ejection fraction is 55 %. Mild (1+) aortic valve insufficiency. The global longitudinal strain is mildly abnormal. The global longitudinal stra in = -15.7% (abnormal). Ordering Physician: Emeka Saleem Referring Physician: Emeka Saleem Performed By: Anneliese Weaver RDCS
== END | disposition home or self-care (01) ==
LOC: CVS 14:48
PROVIDERS: PCP Nurse Practitioner Primary Care; Referring Provider Nurse Practitioner Family; Visit Provider Nurse Practitioner Family
DX: I35.1 Nonrheumatic aortic (valve) insufficiency (principal); R55 Syncope and collapse
CPT/HCPCS: 93306

== ENCOUNTER → 2023-11-21 | Outpatient (CLI) | payer MEDICARE, SELFPAY ==
--- NOTE | 2023-11-21 10:01 | STRESSREP ---
Stress Test Report Exercise myocardial perfusion stress test. 78-year-old male with a history of minimal coronary disease for preop evaluation. Stress protocol: Resting EKG demonstrates sinus bradycardia with a rate of 56 bpm resting blood pressure is 132/84 mmHg. The patient exercised according to the regular Tk protocol for a total duration of 5 minutes attaining a maximum heart rate of 130 bpm which was 90% of maximum predicted heart rate; the maximum workload was 7 metabolic equivalents. At rest there were no ST or T wave changes noted to suggest ischemia and at peak exercise upsloping ST changes only were noted which did not meet the criteria for ischemia. No clinical angina was noted the test was terminated due to the target heart rate being achieved/fatigue. The peak blood pressure was 168/80 mmHg. Rate-pressure product was 13,500. Myocardial perfusion protocol. 12.0 mCi of technetium 99m sestamibi was injected at rest. The patient exercised according to regular Tk protocol for total duration of 5 minutes and at peak exercise 41.7 mCi of technetium 99m sestamibi was injected stress images were obtained stress and rest images were reconstructed in comparing the short axis vertical long and horizontal long axis. Gated images were also obtained. Perfusion SPECT analysis: Review of the stress images demonstrate normal uptake of tracer noted in all areas of the myocardium. The resting images similarly demonstrate normal uptake of tracer noted in all areas of the myocardium. No areas of reversibility are noted to suggest ischemia no previous infarct was noted. Gated SPECT analysis: The gated ejection fraction is 55%. Conclusion: Normal exercise myocardial perfusion stress test at a moderate workload Preserved ejection fraction.
== END | disposition home or self-care (01) ==
LOC: CVS 07:21
PROVIDERS: PCP Nurse Practitioner Primary Care; Referring Provider Nurse Practitioner Family; Visit Provider Nurse Practitioner Family
DX: Z01.818 Encounter for other preprocedural examination (principal); R07.9 Chest pain, unspecified; Z95.5 Presence of coronary angioplasty implant and graft; I25.10 Atherosclerotic heart disease of native coronary artery without angina pectoris; Z86.73 Personal history of transient ischemic attack (TIA), and cerebral infarction without residual deficits; I25.2 Old myocardial infarction; E78.5 Hyperlipidemia, unspecified
CPT/HCPCS: 78452; 93017; A9500; A4216